=== PATIENT | female | born 1930 | race Hispanic/Latino ===

== ENCOUNTER 2018-01-11 12:50 | Emergency (ER) | payer MEDICARE, BC ==
[2018-01-11 12:54] VITALS: BMI 26.6
[2018-01-11 13:13] VITALS: RESP 18; O2SAT 98
--- NOTE | 2018-01-11 13:13 | ED PDOC ---
Arrival/HPI - General Time Seen by Provider: 01/11/18 12:54 Historian: Patient - History of Present Illness Narrative History of Present Illness (Text): 01/11/18 13:15 A 87 year old female, whose past medical history includes hypertension, anemia, arthritis, and cardiac catheterization, chronic beg pain, who is accompanied by her son, presents to the emergency department complaining of lower back pain. Per son, 2 days before Scott, patient tripped on rug and hit her back. Morning of , patient decides she wants to be evaluated for her lower back. Patient was taken to [facility] and had X-Rays, and CTs (including a Head CT due to having also hit head after tripping over rug) and all imagings were negative. However, it was noted that there was something seen on her lower back, and it was stated it may be something that was already there, such as an old fracture of some sort. Patient was sent home with Lidocaine patches, however has had no relief of pain, and instead it has become increasingly worse. Today, son went to go visit patient at her home, and found that patient's pain was much worse today, and became concerned. Patient decided to come to the ER to be evaluated. States took Aleev and Tylenol yesterday and had some relief of the pain. Did not take any pain medication today. Patient denies any chest pain, bowel issues, or any other complaints at this time. Also, patient mentions her PMD knows she is in the ER, as she has an appointment with Dr. Perez tomorrow and he called to confirm her appointment, and that is when she informed the PMD she will be in the ER to be evaluated for the worsening lower back pain. PMD: Dr. Perez 01/11/18 15:41 Past Medical History - Provider Review Nursing Documentation Reviewed: Yes - Tetanus Immunization Tetanus Immunization: Unknown - Cardiac Hx Hypertension: Yes - Pulmonary Hx Respiratory Disorders: No - Neurological Hx Neurological Disorder: No - HEENT Hx HEENT Disorder: No - Renal Hx Renal Disorder: No - Endocrine/Metabolic Hx Endocrine Disorders: No - Hematological/Oncological Hx Anemia: Yes - Integumentary Hx Dermatological Disorder: No - Musculoskeletal/Rheumatological Hx Arthritis: Yes - Gastrointestinal Hx Gastrointestinal Disorders: No - Genitourinary/Gynecological Hx Genitourinary Disorders: No - Psychiatric Hx Depression: Yes Hx Emotional Abuse: No Hx Physical Abuse: No Hx Substance Use: No - Surgical History Hx Cardiac Catheterization: Yes (2014) - Suicidal Assessment Feels Threatened In Home Enviroment: No Family/Social History - Physician Review Nursing Documentation Reviewed: Yes Family/Social History: No Known Family HX Smoking Status: Unknown If Ever Smoked Hx Alcohol Use: No Hx Substance Use: No Hx Substance Use Treatment: No Allergies/Home Meds Allergies/Adverse Reactions: Allergies codeine Allergy (Verified 01/11/18 13:15) ANAPHYLAXIS Home Medications: Home Meds Medication Instructions Recorded Confirmed Gemfibrozil 600 mg PO DAILY 11/17/12 08/07/14 Metoprolol Succinate 100 mg PO DAILY 11/17/12 08/07/14 Sertraline Hydrochloride 50 mg PO DAILY 11/17/12 08/07/14 Ascorbic Acid [Vitamin C] 500 mg PO DAILY 08/07/14 08/07/14 Aspirin [Ecotrin] 81 mg PO DAILY 08/07/14 08/07/14 Clopidogrel [Plavix] 75 mg PO DAILY 08/07/14 08/07/14 Esomeprazole Magnesium [Nexium] 40 mg PO DAILY 08/07/14 08/07/14 Ezetimibe [Zetia] 10 mg PO DAILY 08/07/14 08/07/14 Vitamin D3 -2000 1 tab PO DAILY 08/07/14 08/07/14 Review of Systems - Physician Review All systems were reviewed & negative as marked: Yes - Review of Systems Constitutional: absent: Fatigue, Weight Change, Fevers Eyes: absent: Vision Changes, Photophobia ENT: absent: Hearing Changes, Tinnitus Respiratory: absent: SOB, Cough Cardiovascular: absent: Chest Pain, Palpitations Gastrointestinal: absent: Abdominal Pain, Stool Changes, Vomiting, Appetite Changes Genitourinary Female: absent: Dysuria, Frequency, Hematuria, Urine Output Changes Musculoskeletal: Back Pain. absent: Arthralgias, Neck Pain Skin: absent: Rash, Pruritis Neurological: absent: Headache, Dizziness, Focal Weakness Endocrine: absent: Diaphoresis, Polyuria Physical Exam Vital Signs Reviewed: Yes Temperature: Afebrile Blood Pressure: Normal Pulse: Regular Respiratory Rate: Normal Appearance: Positive for: Well-Appearing, Non-Toxic, Comfortable Pain Distress: None Mental Status: Positive for: Alert and Oriented X 3 - Systems Exam Head: Present: Atraumatic, Normocephalic Pupils: Present: PERRL Extroacular Muscles: Present: EOMI Conjunctiva: Present: Normal Ears: Present: Normal Mouth: Present: Moist Mucous Membranes Pharnyx: Present: Normal Nose (Internal): Present: Normal Inspection Neck: Present: Normal Range of Motion Respiratory/Chest: Present: Clear to Auscultation, Good Air Exchange. No: Respiratory Distress, Accessory Muscle Use Cardiovascular: Present: Regular Rate and Rhythm, Normal S1, S2. No: Murmurs Abdomen: No: Tenderness, Distention, Peritoneal Signs Back: Present: Normal Inspection, Paraspinal Tenderness, Pain with Leg Raise (Right, +SLR). No: CVA Tenderness, Midline Tenderness, Decubitus Ulcer Upper Extremity: Present: Normal Inspection, Normal ROM, NORMAL PULSES, Neurovascularly Intact, Capillary Refill < 2s. No: Cyanosis, Edema Lower Extremity: Present: Normal Inspection, NORMAL PULSES, Normal ROM, Neurovascularly Intact, Capillary Refill < 2 s. No: Edema Neurological: Present: GCS=15, CN II-XII Intact, Speech Normal, Motor Func Grossly Intact, Normal Sensory Function, Normal Cerebellar Funct, Gait Normal Skin: Present: Warm, Dry, Normal Color. No: Rashes Psychiatric: Present: Alert, Oriented x 3, Normal Insight, Normal Concentration Medical Decision Making ED Course and Treatment: 01/11/18 13:20 Impression: 87 year old female with worsening lower back pain. She denies any enuresis or encoparesis. No saddle anesthesia. Still ambulating well after pain meds. She notes she did not take any pain meds today. No vertebral tenderness. No hx of IVDU. She notes DM but has been well controlled per pt. No paralysis or weakness. +R straight leg raise test. Pt notes she has not had PT recently and that likely that would help. Plan: -- Abd/Pelvis CT -- Lumbar Spinal CT -- Urinalysis -- Tylenol -- Lidoderm -- Reassess and disposition Progress Notes: 01/11/18 15:19 Pt notes back pain improved, ambulating well w/ out cauda equina signs CT largely unchanged from previous MRI States she does not have dysuria. Pain likely chronic, and not related to UTI given no dysuria, urgency or frequency. Pt notes she has pain meds at home, will d/c home with return indications and followup. - Scribe Statement The provider has reviewed the documentation as recorded by the Blake Marie Provider Scribe Attestation: All medical record entries made by the Scribe were at my direction and personally dictated by me. I have reviewed the chart and agree that the record accurately reflects my personal performance of the history, physical exam, medical decision making, and the department course for this patient. I have also personally directed, reviewed, and agree with the discharge instructions and disposition. Disposition/Present on Arrival - Present on Arrival Any Indicators Present on Arrival: No History of DVT/PE: No History of Uncontrolled Diabetes: No Urinary Catheter: No History Surgical Site Infection Following: None - Disposition Have Diagnosis and Disposition been Completed?: Yes Diagnosis: Chronic back pain Disposition: HOME/ ROUTINE Disposition Time: 15:20 Condition: GOOD Discharge Instructions (ExitCare): Low Back Pain in Adults, Spinal Stenosis, Low Back Pain (DC) Additional Instructions: QUAN PICHARDO, thank you for letting us take care of you today. Your provider was Giorgi Blankenship and you were treated for BACK PAIN. The emergency medical care you received today was directed at your acute symptoms. If you were prescribed any medication, please fill it and take as directed. It may take several days for your symptoms to resolve. Return to the Emergency Department if your symptoms worsen, do not improve, or if you have any other problems. Please contact your doctor or call one of the physicians/clinics you have been referred to that are listed on the Patient Visit Information form that is included in your discharge packet. Bring any paperwork you were given at discharge with you along with any medications you are taking to your follow up visit. Our treatment cannot replace ongoing medical care by a primary care prov ider outside of the emergency department. Thank you for allowing the [facility] team to be part of your care today. If you had an X-Ray or CT scan: A Radiologist will review the ED reading if any change in treatment is needed we will contact you. If you had a blood, urine, or wound culture: It will take several days for the results, if any change in treatment is needed we will contact you. If you had an STI test: It will take 48 hours for the results. Please call after 1 week if you have not heard back. Referrals: [facility] at [facility] [Outside] - Follow up with primary [facility] [Outside] - Follow up with primary Rc Perez MD [Staff Provider] - Follow up with primary
[2018-01-11] MEDS ORDERED: Lidocaine 5% Patch TD ONE (13:18)
--- NOTE | 2018-01-11 14:50 | CT ---
Date of service: 01/11/2018 PROCEDURE: CT Abdomen and Pelvis without intravenous contrast HISTORY: lumbar pain COMPARISON: None. TECHNIQUE: Without contrast.. Contrast dose: Radiation dose: Total exam DLP = 354.0 mGy-cm. This CT exam was performed using one or more of the following dose reduction techniques: Automated exposure control, adjustment of the mA and/or kV according to patient size, and/or use of iterative reconstruction technique. FINDINGS: LOWER THORAX: Unremarkable. LIVER: Unremarkable. No gross lesion or ductal dilatation. GALLBLADDER AND BILE DUCTS: Gallbladder removed PANCREAS: Unremarkable. No gross lesion or ductal dilatation. SPLEEN: Unremarkable. ADRENALS: Unremarkable. No mass. KIDNEYS AND URETERS: Multiple large renal cysts are seen bilaterally. There is a nonobstructing stone in the periphery of the left kidney. There is no evidence of hydronephrosis VASCULATURE: Unremarkable. No aortic aneurysm. No aortic atherosclerotic calcification or mural plaque present. BOWEL: Unremarkable. No obstruction. No gross mural thickening. APPENDIX: Unremarkable. Normal appendix. PERITONEUM: Unremarkable. No free fluid. No free air. LYMPH NODES: Unremarkable. No enlarged lymph nodes. BLADDER: Unremarkable. REPRODUCTIVE: Unremarkable. BONES: Compression fractures are seen at L2 and T12. These are probably chronic OTHER FINDINGS: None. IMPRESSION: No acute intra-abdominal findings
--- NOTE | 2018-01-11 14:55 | CT ---
Date of service: 01/11/2018 PROCEDURE: CT Lumbar Spine without contrast HISTORY: lumbar pain COMPARISON: None available. TECHNIQUE: Axial computed tomography images were obtained of the lumbar spine without the use of intravenous contrast. Coronal and sagittal reformatted images were created and reviewed. Radiation dose: Total exam DLP = 459.41 mGy-cm. This CT exam was performed using one or more of the following dose reduction techniques: Automated exposure control, adjustment of the mA and/or kV according to patient size, and/or use of iterative reconstruction technique. FINDINGS: VERTEBRAE: There is a moderate to severe compression fracture of L2 and T12. These appear to be chronic. DISCS/SPINAL CANAL/NEURAL FORAMINA: L1-2: There is mild retropulsion of bone with narrowing of the spinal canal right greater than left. L2-3: Moderate disc bulge L3-4: There is severe stenosis secondary to a large disc bulge and facet and ligamentum flavum hypertrophy. L4-5: Severe stenosis with obliteration of the subarachnoid space. There is a large disc bulge and severe facet arthropathy L5-S1: Facet arthropathy right greater than left PARASPINAL SOFT TISSUES: Unremarkable. OTHER FINDINGS: None. IMPRESSION: L3-4: There is severe stenosis secondary to a large disc bulge and facet and ligamentum flavum hypertrophy. L4-5: Severe stenosis. There is a large disc bulge and severe facet arthropathy L5-S1: Facet arthropathy right greater than left Compression fractures of T12 and L2, probably chronic
[2018-01-11 15:40] VITALS: BP 148/78; PULSE 83; TEMP 98.1
== END 2018-01-11 15:58 | disposition home or self-care (01) ==
LOC: ED 12:50
DX: M54.5 Low back pain (principal); G89.29 Other chronic pain; I10 Essential (primary) hypertension

== ENCOUNTER 2018-01-16 18:42 | Inpatient (IN) | payer MEDICARE, BC ==
[2018-01-16] MEDS ORDERED: Sodium Chloride 0.9% 1,000 ML IV SCH ×2 (18:45→20:07)
--- NOTE | 2018-01-16 18:48 | ED PDOC ---
Arrival/HPI - General Time Seen by Provider: 01/16/18 18:43 Historian: EMS - History of Present Illness Narrative History of Present Illness (Text): 01/16/18 18:40 87 year old female, whose past medical hx includes hypertension and hyperlipidemia, who presents to the emergency department from home for stroke- like symptoms. Patient has left-sided weakness, and left facial droop. Patient was last seen normal at 18:00 today. Daughter in-law is present at bedside. Code stroke called upon arrival here. PMD: Boaz Carrington Time/Duration: Prior to Arrival (pt last seen normal at 18:00) Symptom Onset: Sudden Symptom Course: Unchanged Context: Home Past Medical History - Provider Review Nursing Documentation Reviewed: Yes - Tetanus Immunization Tetanus Immunization: Unknown - Cardiac Hx Hypertension: Yes - Pulmonary Hx Respiratory Disorders: No - Neurological Hx Neurological Disorder: No - HEENT Hx HEENT Disorder: No - Renal Hx Renal Disorder: No - Endocrine/Metabolic Hx Endocrine Disorders: No - Hematological/Oncological Hx Anemia: Yes - Integumentary Hx Dermatological Disorder: No - Musculoskeletal/Rheumatological Hx Arthritis: Yes - Gastrointestinal Hx Gastrointestinal Disorders: No - Genitourinary/Gynecological Hx Genitourinary Disorders: No - Psychiatric Hx Depression: Yes Hx Emotional Abuse: No Hx Physical Abuse: No Hx Substance Use: No - Surgical History Hx Cardiac Catheterization: Yes (2014) - Suicidal Assessment Feels Threatened In Home Enviroment: No Family/Social History - Physician Review Nursing Documentation Reviewed: Yes Family/Social History: No Known Family HX Smoking Status: Unknown If Ever Smoked Hx Alcohol Use: No Hx Substance Use: No Hx Substance Use Treatment: No Allergies/Home Meds Allergies/Adverse Reactions: Allergies codeine Allergy (Verified 01/11/18 13:15) ANAPHYLAXIS Home Medications: Home Meds Medication Instructions Recorded Confirmed RX: Gemfibrozil 600 mg PO DAILY 11/17/12 08/07/14 RX: Metoprolol Succinate 100 mg PO DAILY 11/17/12 08/07/14 RX: Sertraline Hydrochloride 50 mg PO DAILY 11/17/12 08/07/14 RX: Ascorbic Acid [Vitamin C] 500 mg PO DAILY 08/07/14 08/07/14 RX: Aspirin [Ecotrin] 81 mg PO DAILY 08/07/14 08/07/14 RX: Clopidogrel [Plavix] 75 mg PO DAILY 08/07/14 08/07/14 RX: Esomeprazole Magnesium [Nexium] 40 mg PO DAILY 08/07/14 08/07/14 RX: Ezetimibe [Zetia] 10 mg PO DAILY 08/07/14 08/07/14 Vitamin D3 -2000 1 tab PO DAILY 08/07/14 08/07/14 Review of Systems - Physician Review All systems were reviewed & negative as marked: Yes - Review of Systems Neurological: Focal Weakness (left-sided focal weakness ), Facial Droop (pt has left-sided facial droop ). absent: Normal Physical Exam Vital Signs Reviewed: Yes Temperature: Afebrile Blood Pressure: Hypertensive Pulse: Regular Respiratory Rate: Normal Medical Decision Making ED Course and Treatment: 01/16/18 18:40 Impression: 87 year old female who presents to the emergency department from home for stroke-like symptoms. Differential Diagnosis included but are not limited to: high suspcition for r mca stroke Plan: -- Labs -- CTA Head/Neck code stroke -- CT of head w/o -- EKG -- CMP -- Hemoglobin A1C -- Lipid Panel -- Troponin I -- CBC (with differential) -- PTT -- Prothrombin Time -- X-Ray of chest -- Activase 65mg Inj IV once -- Activase 7mg Inj IV once -- IV fluids -- Trandate 10mg IV -- Dust Collector Operator Once -- Glucose, Blood, POC ACHS -- Urinalysis -- Reassess and disposition Prior Visits: Notes and results from previous visits were reviewed. Patient was last seen in the emergency department on 01/11/18 for lower back pain. Pt was discharged home in good condition with diagnosis of chronic back pain and directed to follow up with PMD. Progress Notes: 01/16/18 20:40 pt upon arrival with clincal presentation of r mca stroke. code stroke called. head ct neg. b/p initialyy elevated labetalol given. discussed with dr sanchez. request tpa. upon reassessemtn after cta. nih rapidly improved nih 6. case rediscussed wtih dr sanchez. tpa held 2/ rapidly improving symptoms. dr logan updated. request hospitalist admission. accepted dr hayes icu. - RAD Interpretation Narrative RAD Interpretations (Text): Electronically signed on Jan 16, 2018 7:31:06 PM by: Toni Yuz, M.D. 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 VENTRICLES: There is generalized parenchymal atrophy noted as demonstrated by symmetrical dilatation of ventricles and sulci. ORBITS: The orbits are unremarkable. SINUSES AND MASTOIDS: The paranasal sinuses and mastoid air cells are clear. BONES: No fracture. SOFT TISSUES: Unremarkable. MISCELLANEOUS: No acute intracranial pathology. IMPRESSION: 1. There is generalized parenchymal atrophy noted as demonstrated by symmetrical dilatation of ventricles and sulci. 2. Chronic periventricular and subcortical microvascular disease is seen. 3. Focal encephalomalacia involving left occipital lobe, compatible with an old infarct. 4. No acute intracranial pathology. CTA Head/Neck reviewed by radiologist, shows: Negative results. Radiology Orders: 01/16/18 18:44 CTA HEAD/NECK CODE STROKE [CT] Stat HEAD W/O (CODE STROKE) [CT] Stat CHEST PORTABLE [RAD] Stat Business Management Professor: Radiologist - EKG Interpretation EKG Interpretation (Text): EKG: Ordered, reviewed, and independently interpreted the EKG. Rate : 84 BPM Rhythm : NSR Interpretation : Nonspecific st-t wave changes Interpreted by ED Physician: Yes Type: 12 lead EKG - Medication Orders Current Medication Orders: Sodium Chloride (Sodium Chloride 0.9%) 1,000 mls @ 100 mls/hr IV .Q10H RUPERTO NIHSS Scale (Nora) Time Performed: 18:47 - How Severe is the Stoke Baseline Level of Consciousness: 0=Alert LOC to Questions: 0=Both comments correct LOC to commands: 0=Obeys both correctly Best Gaze: 2=Forced deviation Visual: 0=No visual loss Facial: 3=Complete unilateral paralysis Motor Arm - Left: 4=No movement Motor Arm - Right: 0=No drift Motor Leg - Left: 3=No effort against gravity (falls immediately) Motor Leg - Right: 0=No drift Limb Ataxia: 0=Absent Sensory: 0=Normal Best Language: 0=No aphasia Dysarthia: 1=Mild to moderate slurring Extinction & Inattention (Neglect): 1=Partial neglect (mild evie-attention) Score: 14 Risk Level: Mod Stroke Risk rTPA Inclusion/Exclusion - Refusal of Treatment Patient Refused Treatment: No - Inclusion Criteria for Altepase Patient is 18 years or Older: Yes The Clinical Diagnosis of Ischemic Stroke That is Causing a Potentially Disabling Neurological Deficit: No Time of Onset is Well Established to be Less Than 270 Minute Before Treatment Would Begin: Yes Risk/Benefit Discussed With Patient/Family Member Present: No - Exclusion Criteria for Altepase Uncontrolled Hypertension at Time of Treatment (Systolic BP above 185 or Diastolic BP above 110 mmHg): No - Scribe Statement The provider has reviewed the documentation as recorded by the Scribe Justine Carey All medical record entries made by the Scribanthony were at my direction and personally dictated by me. I have reviewed the chart and agree that the record accurately reflects my personal performance of the history, physical exam, medical decision making, and the department course for this patient. I have also personally directed, reviewed, and agree with the discharge instructions and disposition. Disposition/Present on Arrival - Present on Arrival Any Indicators Present on Arrival: No History of DVT/PE: No History of Uncontrolled Diabetes: No Urinary Catheter: No History Surgical Site Infection Following: None - Disposition Have Diagnosis and Disposition been Completed?: Yes Diagnosis: Stroke Disposition: HOSPITALIZED Disposition Time: 07:20 Condition: STABLE
[2018-01-16 19:19] LABS: CALCIUM 10.2 mg/dL (8.4-10.5)
[2018-01-16] MEDS ORDERED: Labetalol 5 mg/ml Inj 20ML IV STA (19:19)
[2018-01-16 19:20] LABS: ALBUMIN 4.2 g/dL (3.0-4.8)
[2018-01-16 19:21] LABS: ALB/GLOB RATIO 1.3 (1.1-1.8)
[2018-01-16] MEDS ORDERED: Labetalol 5mg/ml (4ml) ONE (19:22)
[2018-01-16 19:28] LABS: TROPONIN I 0.05 ng/mL
--- NOTE | 2018-01-16 19:31 | CP.PCM.CON ---
Past Patient History - Tetanus Immunizations Tetanus Immunization: Unknown - Past Social History Smoking Status: Unknown If Ever Smoked - CARDIAC Hx Hypertension: Yes - PULMONARY Hx Respiratory Disorders: No - NEUROLOGICAL Hx Neurological Disorder: No - HEENT Hx HEENT Problems: No - RENAL Hx Chronic Kidney Disease: No - ENDOCRINE/METABOLIC Hx Endocrine Disorders: No - HEMATOLOGICAL/ONCOLOGICAL Hx Anemia: Yes - INTEGUMENTARY Hx Dermatological Problems: No - MUSCULOSKELETAL/RHEUMATOLOGICAL Hx Arthritis: Yes - GASTROINTESTINAL Hx Gastrointestinal Disorders: No - GENITOURINARY/GYNECOLOGICAL Hx Genitourinary Disorders: No - PSYCHIATRIC Hx Depression: Yes Hx Substance Use: No - SURGICAL HISTORY Hx Cardiac Catheterization: Yes (2014) - ANESTHESIA Hx Anesthesia: Yes Hx Anesthesia Reactions: No Hx Malignant Hyperthermia: No Meds Allergies/Adverse Reactions: Allergies Allergy/AdvReac Type Severity Reaction Status Date / Time codeine Allergy ANAPHYLAXIS Verified 01/11/18 13:15 - Medications Medications: Current Medications Sodium Chloride (Sodium Chloride 0.9%) 1,000 mls @ 100 mls/hr IV .Q10H RUPERTO Results - Vital Signs Recent Vital Signs: Last Vital Signs Temp 98.8 F 01/16/18 19:15 Pulse 85 01/16/18 19:15 Resp 19 01/16/18 19:15 BP 195/87 H 01/16/18 19:15 Pulse Ox 99 01/16/18 19:15 - Labs Result Diagrams: 01/16/18 18:50 Labs: Laboratory Results - last 24 hr 01/16/18 01/16/18 18:50 19:00 Sodium 139 Potassium 3.8 Chloride 108 H Carbon Dioxide 23 Anion Gap 12 BUN 24 H Creatinine 1.2 Est GFR ( Amer) 51 Est GFR (Non-Af Amer) 42 Random Glucose 148 H Calcium 10.2 Total Bilirubin 0.3 AST 34 ALT 26 Alkaline Phosphatase 156 H Troponin I 0.05 D Total Protein 7.6 Albumin 4.2 Globulin 3.3 Albumin/Globulin Ratio 1.3 Triglycerides 268 H Cholesterol 194 LDL Cholesterol Direct 54 HDL Cholesterol 39 BBK History Checked No verified bt
[2018-01-16 19:43] LABS: HEMOGLOBIN 10.6 g/dL (12.0-16.0); RBC 3.66 10^6/uL (3.5-6.1); WHITE BLOOD COUNT 7.6 10^3/uL (4.5-11.0)
[2018-01-16 19:44] LABS: BASO % 0.4 % (0.0-3.0); EOS % 3.3 % (1.5-5.0); GRAN % 61.7 % (50.0-68.0); LYMPH % 27.2 % (22.0-35.0); MEAN CELL VOLUME 91.3 fl (80.0-105.0); MEAN CORPUSCULAR HGB CONC 31.7 g/dl (31.0-37.0); MEAN PLATELET VOLUME 9.1 fl (7.0-11.0); MONO % 7.4 % (1.0-6.0); RED CELL DISTRIBUTION WIDTH 14.3 % (11.5-14.5)
[2018-01-16 19:45] LABS: BASO # 0.03 K/mm3 (0.0-2.0); EOS # 0.3 (0.0-0.7); GRAN # 4.7 (1.4-6.5); LYMPH # 2.1 (1.2-3.4); MONO # 0.6 (0.1-0.6)
[2018-01-16 19:48] LABS: INR 1.07; PARTIAL THROMBOPLASTIN TIME 27.4 Seconds (25.1-36.5); PROTHROMBIN TIME 12.2 SECONDS (9.4-12.5)
--- NOTE | 2018-01-16 20:33 | CP.PCM.HP ---
<Mohinder Guthrie - Last Filed: 01/16/18 22:17> History of Present Illness - History of Present Illness History of Present Illness: Mohinder Guthrie Internal Medicine Resident- H&P on Behalf of the Hospitalist Team Subjective CC: AMS, facial droop, slurred speech HPI: Patient is a 87 year old female with a past medical history of hypertension, hyperlipidemia, chronic lower extremity pain, anxiety who presents to the emergency department for evaluation and treatment of altered mental status, facial droop, and slurred speech. As per daughter in law, who is at bedside, the patient was last heard to be normal at approximately 1800 and found by the granddaughter to be altered at 1810. Ambulance was called at ~1823. Patient states that she recalls the aforementioned events. Admits to experiencing generalized fatigue. Offers no other complaints. Denies fever, chills, chest pain, headache, dizziness, vision/auditory changes from baseline, confusion, SOB, abdominal pain, nausea, vomiting, diarrhea, constipation, and urinary symptoms. 12 point ROS negative except as indicated in the HPI Past medical history: hypertension, hyperlipidemia, chronic lower extremity parmjit n, anxiety Past surgical history: bilateral knee replacements-cannot recall years completed, cholecystecomy- unsure of year completed Allergies: NKDA Social History: denies ETOH use, denies tobacco use, denies illicit drug use Medications: patient is unsure of specific names and dosages: metoprolol, gemfibrozil, seroquel, vitamin B12 Pharmacy: [facility] Primary Care Physician: Daughter in law is unsure, believes it is " Trae" Physical Examination - Constitutional Appears: Non-toxic, No Acute Distress - Eye Exam Eye Exam: EOMI, TOMAS - ENT Exam ENT Exam: Mucous Membranes Moist - Neck Exam Neck Exam: Full ROM - Respiratory Exam Respiratory Exam: Clear to Auscultation Bilateral, NORMAL BREATHING PATTERN - Cardiovascular Exam Cardiovascular Exam: REGULAR RHYTHM, RRR, +S1, +S2 - GI/Abdominal Exam GI & Abdominal Exam: Soft, Normal Bowel Sounds. absent: Tenderness - Extremities Exam Extremities Exam: no clubbing, no cyanosis, no edema - Neurological Exam Neurological Exam: Alert, Awake, Oriented x3, responds to verbal stimuli, answers questions appropriately, follows commands, moves extremities past midline. left sided facial droop noted, speech is slurred, CN II- intact bilaterally, CN VII intact on right, CN VIII-XII intact bilaterally. Muscle strength 5/5 right upper and lower extremities, Muscle strength 3/5 left upper and lower extremities (muscle can move the joint it crosses through a full range of motion against gravity but without any resistance), sensation is intact to touch throughout, dysmetria noted when using left upper extremity, tongue deviation to the left noted when asked to protrude, unable to assess gait at this time due to fatigue, left sided neglect noted, NIH stroke scale 6 - Psychiatric Exam Psychiatric exam: Normal Affect, Normal Mood - Skin Skin Exam: Dry, Intact, Normal Color, Warm Assessment and Plan: Patient is a 87 year old female with a past medical history of hypertension, hyperlipidemia, chronic lower extremity pain, anxiety who was admitted for evaluation and treatment of altered mental status, facial droop, and slurred speech. Code stroke was called. Original NIHSS was 14. Repeat NIHSS was 6. Though tPA was ordered it was NOT administered. Case was discussed with neurohospitalist by ED physician. Patient was started on IVF NS @ 125cc/hr and given a labetolol 10mg PO once and aspirin 300mg PO once. AMS - Ddx ischemic stroke vs tia vs. metabolic/toxic encephalopathy - 01/16/2018 CT Head without Contrast- 1. There is generalized parenchymal atrophy noted as demonstrated by symmetrical dilatation of ventricles and sulci. 2. Chronic periventricular and subcortical microvascular disease is seen. 3. Focal encephalomalacia involving left occipital lobe, compatible with an old infarct. 4. No acute intracranial pathology. - 01/16/2018 CTA Head and Neck- mild atherosclerotic changes noted at the left and right common carotid bifurcations wihtout hemodynamicccaly signifciant stneosis. 4 mm nodules noted in the BELLO, Several right left thryoid lobe nodules noted - neurology consulted- appreciate recommendations - allow for permissive hypertension, potential ischemic stroke without tPA administration, tx BP if > 220mmHg/120mmHg for first 24-36hrs from onset - continue IVS NS @ 125cc/hr - neuro checks q1h - vitals q1h Lung Nodule - 4 mm nodule noted in the BELLO noted on CTA Head and Neck - f/u study recommended in 6 months in outpatient setting Thyroid Nodules - TSH with reflex ordered and pending - follow up with outpatient thyroid ultrasound Indeterminant Troponins - EKG NSR [address]-t wave changes - no chest pain, trend troponins x 2 q6h - hx of cad with stent- please see below Hx of CAD - stent placed- 2014 - aspirin 300mg PO x 1 given in ED - hold home aspirin and plavix- restart if neuro approves Hx of HTN - hold home metoprolol - allow for permissive htn, potential ischemic stroke without tPA administration, tx BP if > 220mmHg/120mmHg for first 24-36hrs from onset Hx of HPL - lipid profile ordered and pending - continue home gemfibrozil - continue home zetia Hx of Anemia - Hgb ~ 10.6 at baseline - normocytic - iron, tibc, ferritin, b12, folate ordered and pending Hx of Anxiety - hold home seroquel to avoid medication induced AMS Prophylaxis - DVT- scds - GI- famotidine Patient case discussed with and plan approved by attending physician, Dr. Mera. Present on Admission - Present on Admission Any Indicators Present on Admission: No Past Patient History - Tetanus Immunizations Tetanus Immunization: Unknown - Past Social History Smoking Status: Unknown If Ever Smoked - CARDIAC Hx Hypertension: Yes - PULMONARY Hx Respiratory Disorders: No - NEUROLOGICAL Hx Neurological Disorder: No - HEENT Hx HEENT Problems: No - RENAL Hx Chronic Kidney Disease: No - ENDOCRINE/METABOLIC Hx Endocrine Disorders: No - HEMATOLOGICAL/ONCOLOGICAL Hx Anemia: Yes - INTEGUMENTARY Hx Dermatological Problems: No - MUSCULOSKELETAL/RHEUMATOLOGICAL Hx Arthritis: Yes - GASTROINTESTINAL Hx Gastrointestinal Disorders: No - GENITOURINARY/GYNECOLOGICAL Hx Genitourinary Disorders: No - PSYCHIATRIC Hx Depression: Yes Hx Emotional Abuse: No Hx Physical Abuse: No Hx Substance Use: No - SURGICAL HISTORY Hx Cardiac Catheterization: Yes (2014) - ANESTHESIA Hx Anesthesia: Yes Hx Anesthesia Reactions: No Hx Malignant Hyperthermia: No Meds Allergies/Adverse Reactions: Allergies Allergy/AdvReac Type Severity Reaction Status Date / Time codeine Allergy ANAPHYLAXIS Verified 01/11/18 13:15 Results - Vital Signs Recent Vital Signs: Last Vital Signs Temp 98.8 F 01/16/18 19:15 Pulse 81 01/16/18 19:55 Resp 21 01/16/18 19:55 BP 175/67 H 01/16/18 19:55 Pulse Ox 94 L 01/16/18 19:55 - Labs Result Diagrams: 01/16/18 18:50 01/16/18 18:50 Labs: Laboratory Results - last 24 hr 01/16/18 01/16/18 01/16/18 18:45 18:50 18:50 WBC 7.6 RBC 3.66 Hgb 10.6 L Hct 33.4 L MCV 91.3 MCH 29.0 MCHC 31.7 RDW 14.3 Plt Count 337 MPV 9.1 Gran % 61.7 Lymph % (Auto) 27.2 [place] % (Auto) 7.4 H Eos % (Auto) 3.3 Baso % (Auto) 0.4 Gran # 4.70 Lymph # (Auto) 2.1 [place] # (Auto) 0.6 Eos # (Auto) 0.3 Baso # (Auto) 0.03 PT 12.2 INR 1.07 APTT 27.4 Sodium Potassium Chloride Carbon Dioxide Anion Gap BUN Creatinine Est GFR ( Amer) Est GFR (Non-Af Amer) Random Glucose Calcium Total Bilirubin AST ALT Alkaline Phosphatase Troponin I Total Protein Albumin Globulin Albumin/Globulin Ratio Triglycerides Cholesterol LDL Cholesterol Direct HDL Cholesterol Blood Type Blood Type Confirm O POSITIVE Antibody Screen BBK History Checked 01/16/18 01/16/18 18:50 19:00 WBC RBC Hgb Hct MCV MCH MCHC RDW Plt Count MPV Gran % Lymph % (Auto) [place] % (Auto) Eos % (Auto) Baso % (Auto) Gran # Lymph # (Auto) [place] # (Auto) Eos # (Auto) Baso # (Auto) PT INR APTT Sodium 139 Potassium 3.8 Chloride 108 H Carbon Dioxide 23 Anion Gap 12 BUN 24 H Creatinine 1.2 Est GFR ( Amer) 51 Est GFR (Non-Af Amer) 42 Random Glucose 148 H Calcium 10.2 Total Bilirubin 0.3 AST 34 ALT 26 Alkaline Phosphatase 156 H Troponin I 0.05 D Total Protein 7.6 Albumin 4.2 Globulin 3.3 Albumin/Globulin Ratio 1.3 Triglycerides 268 H Cholesterol 194 LDL Cholesterol Direct 54 HDL Cholesterol 39 Blood Type O POSITIVE Blood Type Confirm Antibody Screen Negative BBK History Checked No verified bt <Rodrigue Mera - Last Filed: 01/20/18 02:07> Results - Vital Signs Recent Vital Signs: Last Vital Signs Temp 98 F 01/19/18 22:01 Pulse 68 01/19/18 22:01 Resp 18 01/19/18 22:01 BP 134/69 01/19/18 22:01 Pulse Ox 96 01/19/18 22:01 - Labs Result Diagrams: 01/19/18 06:20 01/19/18 06:20 Labs: Laboratory Results - last 24 hr 01/19/18 01/19/18 06:20 06:20 WBC 8.8 RBC 3.30 L Hgb 9.7 L Hct 29.7 L MCV 90.0 MCH 29.4 MCHC 32.7 RDW 14.5 Plt Count 258 MPV 9.2 Gran % 70.2 H Lymph % (Auto) 17.0 L [place] % (Auto) 9.5 H Eos % (Auto) 3.1 Baso % (Auto) 0.2 Gran # 6.15 Lymph # (Auto) 1.5 [place] # (Auto) 0.8 H Eos # (Auto) 0.3 Baso # (Auto) 0.02 Sodium 138 Potassium 3.7 Chloride 109 H Carbon Dioxide 24 Anion Gap 9 L BUN 20 Creatinine 1.2 Est GFR ( Amer) 51 Est GFR (Non-Af Amer) 42 Random Glucose 116 H Calcium 9.7 Total Bilirubin 0.6 AST 33 ALT 28 Alkaline Phosphatase 128 H Total Protein 6.4 Albumin 3.4 Globulin 3.1 Albumin/Globulin Ratio 1.1 Attending/Attestation - Attestation I have personally seen and examined this patient.: Yes I have fully participated in the care of the patient.: Yes I have reviewed all pertinent clinical information: Yes
[2018-01-16 22:59] LABS: URINE BILIRUBIN NEGATIVE (NEGATIVE); URINE BLOOD TRACE-INTACT (NEGATIVE); URINE GLUCOSE (UA) NEGATIVE (NEGATIVE); URINE LEUKOCYTE ESTERASE NEGATIVE Leu/uL (NEGATIVE); URINE PROTEIN NEGATIVE mg/dL (<30 mg/dL); URINE UROBILINOGEN 0.2 E.U./dL (<1 E.U./dL)
[2018-01-16 23:02] LABS: URINE APPEARANCE CLEAR (CLEAR); URINE COLOR YELLOW (YELLOW)
[2018-01-17 00:02] LABS: URINE EPITHELIAL CELLS 0 - 2 /hpf (0-5); URINE RBC 0 - 2 /hpf (0-2)
[2018-01-17 00:03] LABS: URINE BACTERIA SMALL (NEG); URINE WBC 0 - 2 /hpf (0-6)
[2018-01-17 00:11] LABS: IRON 80 ug/dL (45-180)
[2018-01-17 00:20] LABS: % IRON SATURATION 22 % (20-55); TOTAL IRON BINDING CAPACITY 365 ug/dL (265-497)
[2018-01-17 05:24] VITALS: BMI 26.7
[2018-01-17 06:24] LABS: BASO # 0.03 K/mm3 (0.0-2.0); BASO % 0.4 % (0.0-3.0); EOS # 0.3 (0.0-0.7); EOS % 3.2 % (1.5-5.0); GRAN # 5.64 (1.4-6.5); GRAN % 65.9 % (50.0-68.0); HEMOGLOBIN 9.7 g/dL (12.0-16.0); LYMPH # 2.1 (1.2-3.4); LYMPH % 24.1 % (22.0-35.0); MEAN CELL VOLUME 90.6 fl (80.0-105.0); MEAN CORPUSCULAR HEMOGLOBIN 29.5 pg (25.0-35.0); MEAN CORPUSCULAR HGB CONC 32.6 g/dl (31.0-37.0); MONO # 0.6 (0.1-0.6); MONO % 6.4 % (1.0-6.0); RBC 3.29 10^6/uL (3.5-6.1); RED CELL DISTRIBUTION WIDTH 14.4 % (11.5-14.5); WHITE BLOOD COUNT 8.6 10^3/uL (4.5-11.0)
[2018-01-17 06:46] LABS: TROPONIN I 0.05 ng/mL
[2018-01-17 07:23] LABS: ALB/GLOB RATIO 1.2 (1.1-1.8); ALBUMIN 3.5 g/dL (3.0-4.8); CALCIUM 9.6 mg/dL (8.4-10.5)
--- NOTE | 2018-01-17 09:10 | CARD ---
APPROVED REPORT Date of service: 01/16/2018 EKG Measurement Heart [id number] <Conclusion> Normal sinus rhythm Left axis deviation Minimal voltage criteria for LVH, may be normal variant Nonspecific ST and T wave abnormality Abnormal ECG
--- NOTE | 2018-01-17 09:46 | CP.CCUPN ---
<Rohit Wilson - Last Filed: 01/17/18 13:29> CCU Subjective - Physician Review Subjective (Free Text): Rohit Wilson, PGY1 ICU Progress Note for Dr. Lal Patient was seen and examined at bedside this morning. She is AAOx3. Endorses mild shaking/tremors of the legs and some generalized weakness. Patient has mild slurring of speech during interview. She denies cp, sob, abdominal pain, blurry vision, lightheadedness, dizziness. BP during time of interview was 190/95. A full 12 point ROS was conducted and unremarkable except as stated above. CCU Objective - Vital Signs / Intake & Output Vital Signs (Last 4 hours): Vital Signs Pulse 01/17/18 06:00 62 Intake and Output (Last 8hrs): Intake & Output 01/16/18 01/17/18 01/17/18 22:59 06:59 14:59 Intake Total 875 Output Total 600 Balance 275 Weight 80 kg 79.379 kg Intake: IV 875 Right Hand 875 Oral 0 Output: Urine 600 Urethral (Marcos) 600 - Physical Exam Head: Positive for: Atraumatic, Normocephalic Pupils: Positive for: Non-Reactive. Negative for: PERRL Extroacular Muscles: Positive for: EOMI Mouth: Positive for: Moist Mucous Membranes Pharnyx: Positive for: Normal Neck: Positive for: Normal Range of Motion. Negative for: Meningeal Signs Respiratory/Chest: Positive for: Clear to Auscultation. Negative for: Respiratory Distress, Accessory Muscle Use, Wheezes, Rales, Rhonchi Cardiovascular: Positive for: Regular Rate and Rhythm, Normal S1, S2 Abdomen: Positive for: Normal Bowel Sounds. Negative for: Tenderness, Di stention, Peritoneal Signs Upper Extremity: Positive for: Normal ROM, NORMAL PULSES, Other (3-4/5 motor strenth in Left Upper Ext. 5/5 in R-UE. ). Negative for: Normal Inspection, Cyanosis, Edema Lower Extremity: Positive for: Other (3-4/5 motor strength in the left lower ext. 5/5 in right lower ext. ). Negative for: Edema, CALF TENDERNESS, Cyanosis, Kait's Sign, Tenderness Neurological: Positive for: Other (General left sided muscle weakness. Sensation grossly intact. Facial droop on left side. ). Negative for: CN II-XII Intact, Speech Normal (Mild slurring of speech. ) Skin: Positive for: Warm, Dry, Normal Color. Negative for: Rashes Psychiatric: Positive for: Alert, Oriented x 3 - Medications Active Medications: Active Medications Generic Name Dose Route Start Last Admin Trade Name Freq PRN Reason Stop Dose Admin Clopidogrel Bisulfate 75 mg 01/19/18 10:00 Plavix PO DAILY [facility] Ezetimibe 10 mg 01/17/18 10:00 Zetia PO DAILY [facility] Famotidine 20 mg 01/17/18 10:00 Pepcid IVP DAILY RUPERTO Gemfibrozil 600 mg 01/17/18 10:00 Lopid PO DAILY RUPERTO Hydralazine HCl 10 mg 01/17/18 09:36 Apresoline IVP Q6 PRN FOR SBP>160 Losartan Potassium 100 mg 01/17/18 10:00 Cozaar PO DAILY [facility] Metoprolol Tartrate 25 mg 01/17/18 10:00 Lopressor PO BID RUPERTO Non-Formulary Medication 500 mg 01/17/18 10:00 Ascorbic Acid [Vitamin C] PO DAILY RUPERTO Non-Formulary Medication 81 mg 01/17/18 10:00 Aspirin [Ecotrin] PO DAILY RUPERTO Non-Formulary Medication 40 mg 01/17/18 10:00 Esomeprazole Magnesium [Nexium] PO DAILY RUPERTO Non-Formulary Medication 50 mg 01/17/18 10:00 Sertraline Hydrochloride [Sertraline Hydrochloride] PO DAILY RUPERTO - Patient Studies Lab Studies: Lab Studies 01/17/18 01/17/18 01/17/18 Range/Units 05:40 05:40 01:03 WBC 8.6 (4.5-11.0) 10^3/uL RBC 3.29 L (3.5-6.1) 10^6/uL Hgb 9.7 L (12.0-16.0) g/dL Hct 29.8 L (36.0-48.0) % MCV 90.6 (80.0-105.0) fl MCH 29.5 (25.0-35.0) pg MCHC 32.6 (31.0-37.0) g/dl RDW 14.4 (11.5-14.5) % Plt Count 277 (120.0-450.0) 10^3/uL MPV 9.0 (7.0-11.0) fl Gran % 65.9 (50.0-68.0) % Lymph % (Auto) 24.1 (22.0-35.0) % [place] % (Auto) 6.4 H (1.0-6.0) % Eos % (Auto) 3.2 (1.5-5.0) % Baso % (Auto) 0.4 (0.0-3.0) % Gran # 5.64 (1.4-6.5) Lymph # (Auto) 2.1 (1.2-3.4) [place] # (Auto) 0.6 (0.1-0.6) Eos # (Auto) 0.3 (0.0-0.7) Baso # (Auto) 0.03 (0.0-2.0) K/mm3 PT (9.4-12.5) SECONDS INR APTT (25.1-36.5) Seconds Sodium 140 (132-148) mmol/L Potassium 3.9 (3.6-5.0) mmol/L Chloride 112 H (98-107) mmol/L Carbon Dioxide 22 (21-33) mmol/L Anion Gap 10 (10-20) BUN 19 (7-21) mg/dL Creatinine 1.1 (0.7-1.2) mg/dl Est GFR ( Amer) 57 Est GFR (Non-Af Amer) 47 Random Glucose 102 (70-110) mg/dL Calcium 9.6 (8.4-10.5) mg/dL Phosphorus 3.1 (2.5-4.5) mg/dL Magnesium 1.9 (1.7-2.2) mg/dL Iron (45-180) ug/dL TIBC (265-497) ug/dL % Saturation (20-55) % Total Bilirubin 0.2 (0.2-1.3) mg/dL AST 26 (14-36) U/L ALT 32 (7-56) U/L Alkaline Phosphatase 133 H (38-126) U/L Troponin I 0.05 0.05 ng/mL Total Protein 6.5 (5.8-8.3) g/dL Albumin 3.5 (3.0-4.8) g/dL Globulin 3.0 gm/dL Albumin/Globulin Ratio 1.2 (1.1-1.8) Triglycerides (35-160) mg/dL Cholesterol (130-200) mg/dL LDL Cholesterol Direct (0-129) mg/dL HDL Cholesterol (29-60) mg/dL TSH 3rd Generation (0.46-4.68) mIU/mL Urine Color (YELLOW) Urine Appearance (CLEAR) Urine pH (4.7-8.0) Ur Specific [place] (1.005-1.035) Urine Protein (<30 mg/dL) mg/dL Urine Glucose (UA) (NEGATIVE) mg/dL Urine Ketones (NEGATIVE) mg/dL Urine Blood (NEGATIVE) Urine Nitrate (NEGATIVE) Urine Bilirubin (NEGATIVE) Urine Urobilinogen (<1 E.U./dL) E.U./dL Ur Leukocyte Esterase (NEGATIVE) Wili/uL Urine RBC (0-2) /hpf Urine WBC (0-6) /hpf Ur Epithelial Cells (0-5) /hpf Urine Bacteria (NEG) Blood Type Blood Type Confirm Antibody Screen BBK History Checked 01/16/18 01/16/18 01/16/18 Range/Units 23:11 22:50 19:00 WBC (4.5-11.0) 10^3/uL RBC (3.5-6.1) 10^6/uL Hgb (12.0-16.0) g/dL Hct (36.0-48.0) % MCV (80.0-105.0) fl MCH (25.0-35.0) pg MCHC (31.0-37.0) g/dl RDW (11.5-14.5) % Plt Count (120.0-450.0) 10^3/uL MPV (7.0-11.0) fl Gran % (50.0-68.0) % Lymph % (Auto) (22.0-35.0) % [place] % (Auto) (1.0-6.0) % Eos % (Auto) (1.5-5.0) % Baso % (Auto) (0.0-3.0) % Gran # (1.4-6.5) Lymph # (Auto) (1.2-3.4) [place] # (Auto) (0.1-0.6) Eos # (Auto) (0.0-0.7) Baso # (Auto) (0.0-2.0) K/mm3 PT (9.4-12.5) SECONDS INR APTT (25.1-36.5) Seconds Sodium (132-148) mmol/L Potassium (3.6-5.0) mmol/L Chloride (98-107) mmol/L Carbon Dioxide (21-33) mmol/L Anion Gap (10-20) BUN (7-21) mg/dL Creatinine (0.7-1.2) mg/dl Est GFR ( Amer) Est GFR (Non-Af Amer) Random Glucose (70-110) mg/dL Calcium (8.4-10.5) mg/dL Phosphorus (2.5-4.5) mg/dL Magnesium (1.7-2.2) mg/dL Iron 80 (45-180) ug/dL TIBC 365 (265-497) ug/dL % Saturation 22 (20-55) % Total Bilirubin (0.2-1.3) mg/dL AST (14-36) U/L ALT (7-56) U/L Alkaline Phosphatase (38-126) U/L Troponin I ng/mL Total Protein (5.8-8.3) g/dL Albumin (3.0-4.8) g/dL Globulin gm/dL Albumin/Globulin Ratio (1.1-1.8) Triglycerides (35-160) mg/dL Cholesterol (130-200) mg/dL LDL Cholesterol Direct (0-129) mg/dL HDL Cholesterol (29-60) mg/dL TSH 3rd Generation 0.90 (0.46-4.68) mIU/mL Urine Color Yellow (YELLOW) Urine Appearance Clear (CLEAR) Urine pH 6.0 (4.7-8.0) Ur Specific [place] 1.015 (1.005-1.035) Urine Protein Negative (<30 mg/dL) mg/dL Urine Glucose (UA) Negative (NEGATIVE) mg/dL Urine Ketones Negative (NEGATIVE) mg/dL Urine Blood Trace-intact H (NEGATIVE) Urine Nitrate Negative (NEGATIVE) Urine Bilirubin Negative (NEGATIVE) Urine Urobilinogen 0.2 (<1 E.U./dL) E.U./dL Ur Leukocyte Esterase Negative (NEGATIVE) Wili/uL Urine RBC 0 - 2 (0-2) /hpf Urine WBC 0 - 2 (0-6) /hpf Ur Epithelial Cells 0 - 2 (0-5) /hpf Urine Bacteria Small (NEG) Blood Type Blood Type Confirm Antibody Screen BBK History Checked 01/16/18 01/16/18 01/16/18 Range/Units 19:00 18:50 18:50 WBC (4.5-11.0) 10^3/uL RBC (3.5-6.1) 10^6/uL Hgb (12.0-16.0) g/dL Hct (36.0-48.0) % MCV (80.0-105.0) fl MCH (25.0-35.0) pg MCHC (31.0-37.0) g/dl RDW (11.5-14.5) % Plt Count (120.0-450.0) 10^3/uL MPV (7.0-11.0) fl Gran % (50.0-68.0) % Lymph % (Auto) (22.0-35.0) % [place] % (Auto) (1.0-6.0) % Eos % (Auto) (1.5-5.0) % Baso % (Auto) (0.0-3.0) % Gran # (1.4-6.5) Lymph # (Auto) (1.2-3.4) [place] # (Auto) (0.1-0.6) Eos # (Auto) (0.0-0.7) Baso # (Auto) (0.0-2.0) K/mm3 PT 12.2 (9.4-12.5) SECONDS INR 1.07 APTT 27.4 (25.1-36.5) Seconds Sodium 139 (132-148) mmol/L Potassium 3.8 (3.6-5.0) mmol/L Chloride 108 H (98-107) mmol/L Carbon Dioxide 23 (21-33) mmol/L Anion Gap 12 (10-20) BUN 24 H (7-21) mg/dL Creatinine 1.2 (0.7-1.2) mg/dl Est GFR ( Amer) 51 Est GFR (Non-Af Amer) 42 Random Glucose 148 H (70-110) mg/dL Calcium 10.2 (8.4-10.5) mg/dL Phosphorus (2.5-4.5) mg/dL Magnesium (1.7-2.2) mg/dL Iron (45-180) ug/dL TIBC (265-497) ug/dL % Saturation (20-55) % Total Bilirubin 0.3 (0.2-1.3) mg/dL AST 34 (14-36) U/L ALT 26 (7-56) U/L Alkaline Phosphatase 156 H (38-126) U/L Troponin I 0.05 D ng/mL Total Protein 7.6 (5.8-8.3) g/dL Albumin 4.2 (3.0-4.8) g/dL Globulin 3.3 gm/dL Albumin/Globulin Ratio 1.3 (1.1-1.8) Triglycerides 268 H (35-160) mg/dL Cholesterol 194 (130-200) mg/dL LDL Cholesterol Direct 54 (0-129) mg/dL HDL Cholesterol 39 (29-60) mg/dL TSH 3rd Generation (0.46-4.68) mIU/mL Urine Color (YELLOW) Urine Appearance (CLEAR) Urine pH (4.7-8.0) Ur Specific [place] (1.005-1.035) Urine Protein (<30 mg/dL) mg/dL Urine Glucose (UA) (NEGATIVE) mg/dL Urine Ketones (NEGATIVE) mg/dL Urine Blood (NEGATIVE) Urine Nitrate (NEGATIVE) Urine Bilirubin (NEGATIVE) Urine Urobilinogen (<1 E.U./dL) E.U./dL Ur Leukocyte Esterase (NEGATIVE) Wili/uL Urine RBC (0-2) /hpf Urine WBC (0-6) /hpf Ur Epithelial Cells (0-5) /hpf Urine Bacteria (NEG) Blood Type O POSITIVE Blood Type Confirm Antibody Screen Negative BBK History Checked No verified bt 01/16/18 01/16/18 Range/Units 18:50 18:45 WBC 7.6 (4.5-11.0) 10^3/uL RBC 3.66 (3.5-6.1) 10^6/uL Hgb 10.6 L (12.0-16.0) g/dL Hct 33.4 L (36.0-48.0) % MCV 91.3 (80.0-105.0) fl MCH 29.0 (25.0-35.0) pg MCHC 31.7 (31.0-37.0) g/dl RDW 14.3 (11.5-14.5) % Plt Count 337 (120.0-450.0) 10^3/uL MPV 9.1 (7.0-11.0) fl Gran % 61.7 (50.0-68.0) % Lymph % (Auto) 27.2 (22.0-35.0) % [place] % (Auto) 7.4 H (1.0-6.0) % Eos % (Auto) 3.3 (1.5-5.0) % Baso % (Auto) 0.4 (0.0-3.0) % Gran # 4.70 (1.4-6.5) Lymph # (Auto) 2.1 (1.2-3.4) [place] # (Auto) 0.6 (0.1-0.6) Eos # (Auto) 0.3 (0.0-0.7) Baso # (Auto) 0.03 (0.0-2.0) K/mm3 PT (9.4-12.5) SECONDS INR APTT (25.1-36.5) Seconds Sodium (132-148) mmol/L Potassium (3.6-5.0) mmol/L Chloride (98-107) mmol/L Carbon Dioxide (21-33) mmol/L Anion Gap (10-20) BUN (7-21) mg/dL Creatinine (0.7-1.2) mg/dl Est GFR ( Amer) Est GFR (Non-Af Amer) Random Glucose (70-110) mg/dL Calcium (8.4-10.5) mg/dL Phosphorus (2.5-4.5) mg/dL Magnesium (1.7-2.2) mg/dL Iron (45-180) ug/dL TIBC (265-497) ug/dL % Saturation (20-55) % Total Bilirubin (0.2-1.3) mg/dL AST (14-36) U/L ALT (7-56) U/L Alkaline Phosphatase (38-126) U/L Troponin I ng/mL Total Protein (5.8-8.3) g/dL Albumin (3.0-4.8) g/dL Globulin gm/dL Albumin/Globulin Ratio (1.1-1.8) Triglycerides (35-160) mg/dL Cholesterol (130-200) mg/dL LDL Cholesterol Direct (0-129) mg/dL HDL Cholesterol (29-60) mg/dL TSH 3rd Generation (0.46-4.68) mIU/mL Urine Color (YELLOW) Urine Appearance (CLEAR) Urine pH (4.7-8.0) Ur Specific [place] (1.005-1.035) Urine Protein (<30 mg/dL) mg/dL Urine Glucose (UA) (NEGATIVE) mg/dL Urine Ketones (NEGATIVE) mg/dL Urine Blood (NEGATIVE) Urine Nitrate (NEGATIVE) Urine Bilirubin (NEGATIVE) Urine Urobilinogen (<1 E.U./dL) E.U./dL Ur Leukocyte Esterase (NEGATIVE) Wili/uL Urine RBC (0-2) /hpf Urine WBC (0-6) /hpf Ur Epithelial Cells (0-5) /hpf Urine Bacteria (NEG) Blood Type Blood Type Confirm O POSITIVE Antibody Screen BBK History Checked Laboratory Results - last 24 hr 01/16/18 01/16/18 01/16/18 18:45 18:50 18:50 WBC 7.6 RBC 3.66 Hgb 10.6 L Hct 33.4 L MCV 91.3 MCH 29.0 MCHC 31.7 RDW 14.3 Plt Count 337 MPV 9.1 Gran % 61.7 Lymph % (Auto) 27.2 [place] % (Auto) 7.4 H Eos % (Auto) 3.3 Baso % (Auto) 0.4 Gran # 4.70 Lymph # (Auto) 2.1 [place] # (Auto) 0.6 Eos # (Auto) 0.3 Baso # (Auto) 0.03 PT 12.2 INR 1.07 APTT 27.4 Sodium Potassium Chloride Carbon Dioxide Anion Gap BUN Creatinine Est GFR ( Amer) Est GFR (Non-Af Amer) Random Glucose Calcium Phosphorus Magnesium Iron TIBC % Saturation Total Bilirubin AST ALT Alkaline Phosphatase Troponin I Total Protein Albumin Globulin Albumin/Globulin Ratio Triglycerides Cholesterol LDL Cholesterol Direct HDL Cholesterol TSH 3rd Generation Urine Color Urine Appearance Urine pH Ur Specific [place] Urine Protein Urine Glucose (UA) Urine Ketones Urine Blood Urine Nitrate Urine Bilirubin Urine Urobilinogen Ur Leukocyte Esterase Urine RBC Urine WBC Ur Epithelial Cells Urine Bacteria Blood Type Blood Type Confirm O POSITIVE Antibody Screen BBK History Checked 01/16/18 01/16/18 01/16/18 18:50 19:00 19:00 WBC RBC Hgb Hct MCV MCH MCHC RDW Plt Count MPV Gran % Lymph % (Auto) [place] % (Auto) Eos % (Auto) Baso % (Auto) Gran # Lymph # (Auto) [place] # (Auto) Eos # (Auto) Baso # (Auto) PT INR APTT Sodium 139 Potassium 3.8 Chloride 108 H Carbon Dioxide 23 Anion Gap 12 BUN 24 H Creatinine 1.2 Est GFR ( Amer) 51 Est GFR (Non-Af Amer) 42 Random Glucose 148 H Calcium 10.2 Phosphorus Magnesium Iron TIBC % Saturation Total Bilirubin 0.3 AST 34 ALT 26 Alkaline Phosphatase 156 H Troponin I 0.05 D Total Protein 7.6 Albumin 4.2 Globulin 3.3 Albumin/Globulin Ratio 1.3 Triglycerides 268 H Cholesterol 194 LDL Cholesterol Direct 54 HDL Cholesterol 39 TSH 3rd Generation 0.90 Urine Color Urine Appearance Urine pH Ur Specific [place] Urine Protein Urine Glucose (UA) Urine Ketones Urine Blood Urine Nitrate Urine Bilirubin Urine Urobilinogen Ur Leukocyte Esterase Urine RBC Urine WBC Ur Epithelial Cells Urine Bacteria Blood Type O POSITIVE Blood Type Confirm Antibody Screen Negative BBK History Checked No verified bt 01/16/18 01/16/18 01/17/18 22:50 23:11 01:03 WBC RBC Hgb Hct MCV MCH MCHC RDW Plt Count MPV Gran % Lymph % (Auto) [place] % (Auto) Eos % (Auto) Baso % (Auto) Gran # Lymph # (Auto) [place] # (Auto) Eos # (Auto) Baso # (Auto) PT INR APTT Sodium Potassium Chloride Carbon Dioxide Anion Gap BUN Creatinine Est GFR ( Amer) Est GFR (Non-Af Amer) Random Glucose Calcium Phosphorus Magnesium Iron 80 TIBC 365 % Saturation 22 Total Bilirubin AST ALT Alkaline Phosphatase Troponin I 0.05 Total Protein Albumin Globulin Albumin/Globulin Ratio Triglycerides Cholesterol LDL Cholesterol Direct HDL Cholesterol TSH 3rd Generation Urine Color Yellow Urine Appearance Clear Urine pH 6.0 Ur Specific [place] 1.015 Urine Protein Negative Urine Glucose (UA) Negative Urine Ketones Negative Urine Blood Trace-intact H Urine Nitrate Negative Urine Bilirubin Negative Urine Urobilinogen 0.2 Ur Leukocyte Esterase Negative Urine RBC 0 - 2 Urine WBC 0 - 2 Ur Epithelial Cells 0 - 2 Urine Bacteria Small Blood Type Blood Type Confirm Antibody Screen BBK History Checked 01/17/18 01/17/18 05:40 05:40 WBC 8.6 RBC 3.29 L Hgb 9.7 L Hct 29.8 L MCV 90.6 MCH 29.5 MCHC 32.6 RDW 14.4 Plt Count 277 MPV 9.0 Gran % 65.9 Lymph % (Auto) 24.1 [place] % (Auto) 6.4 H Eos % (Auto) 3.2 Baso % (Auto) 0.4 Gran # 5.64 Lymph # (Auto) 2.1 [place] # (Auto) 0.6 Eos # (Auto) 0.3 Baso # (Auto) 0.03 PT INR APTT Sodium 140 Potassium 3.9 Chloride 112 H Carbon Dioxide 22 Anion Gap 10 BUN 19 Creatinine 1.1 Est GFR ( Amer) 57 Est GFR (Non-Af Amer) 47 Random Glucose 102 Calcium 9.6 Phosphorus 3.1 Magnesium 1.9 Iron TIBC % Saturation Total Bilirubin 0.2 AST 26 ALT 32 Alkaline Phosphatase 133 H Troponin I 0.05 Total Protein 6.5 Albumin 3.5 Globulin 3.0 Albumin/Globulin Ratio 1.2 Triglycerides Cholesterol LDL Cholesterol Direct HDL Cholesterol TSH 3rd Generation Urine Color Urine Appearance Urine pH Ur Specific [place] Urine Protein Urine Glucose (UA) Urine Ketones Urine Blood Urine Nitrate Urine Bilirubin Urine Urobilinogen Ur Leukocyte Esterase Urine RBC Urine WBC Ur Epithelial Cells Urine Bacteria Blood Type Blood Type Confirm Antibody Screen BBK History Checked EKG/Cardiology Studies: Cardiology / EKG Studies 01/16/18 18:44 ELECTROCARDIOGRAM Stat Comment: Reason For Exam: code stroke Fingerstick Blood Sugar Results: 143 Review of Systems - Review of Systems All systems: reviewed and no additional remarkable complaints except (as per HPI) Critical Care Progress Note - Prophylaxis GI Prophylaxis GI: Pepsid - Nutrition Nutrition: Nutrition Category Date Time Status NPO Diet [DIET] Diets 01/16/18 Breakfast Ordered Assessment/Plan - Assessment and Plan (Free Text) Assessment: Patient is a 87 y/o F with PMHx of HTN, HLD, CAD (x1 stent in 2015), chronic lower extremity pain, anxiety who was admitted for ischemic stroke. She is not a candidate for tPA; most recent NIHSS was 6. ICU consulted for evaluation of patient. Plan: Neuro: - Ischemic stroke - f/u Brain MRI results - ASA 300mg daily for neuroprotection - Restarted on plavix as per cardiology - Head CT: no acute intracranial abnormalities - CT Head/Neck: no significant stenosis. Trace atherosclerotic changes. Left apical pulmonary nodule and bilateral thyroid nodules. - AAOx3. Left sided weakness on exam with left facial droop. - Frequent neurochecks and vital checks - Neuro is on consult. Appreciate recs. - Maintain normothermia - PT - Speech and Swallow eval Cardio: - Because of ischemic stroke, allow for permissive HTN with goal BP < 220/120 since patient is not a candidate for tPA as per neuro - After 24 hours, resume patient's home BP Meds as tolerated to control HTN - Echo with bubble study - Patient is off fluids - Maintain MAP > 65 - Cardiology is on consult. - Lipid panel shows hypertriglyceridemia - troponins negative x3 - EKG: NSR. Left axis deviation. - Hx HTN, CAD (x1 stent), and HLD Pulm: - Maintain SaO2 > 92% - No acute issues at this time GI: - GI ppx - NPO for now Renal: - Maintain euvolemia - Marcos in place - Monitor Ins/outs Heme: - Hold blood thinners at this time - H/H stable ID: - Afebrile; no leukocytosis - no active disease Endo: - TSH is within normal limits - Maintain euglycemia Code status: DNR/DNI Dispo: monitor patient in the ICU. Will continue with frequent neurochecks and vital sign checks for stroke protocol. Case was discussed and reviewed with Attending Physician, Dr. Lal <Tarun Lal - Last Filed: 01/17/18 16:03> CCU Objective - Vital Signs / Intake & Output Vital Signs (Last 4 hours): Vital Signs Pulse Resp BP Pulse Ox 01/17/18 14:00 67 01/17/18 12:15 67 15 148/74 96 01/17/18 12:10 67 19 98 01/17/18 12:00 67 15 157/76 H 99 Intake and Output (Last 8hrs): Intake & Output 01/17/18 01/17/18 01/17/18 06:59 14:59 22:59 Intake Total 875 Output Total 600 Balance 275 Weight 175 lb Intake: IV 875 Right Hand 875 Oral 0 Output: Urine 600 Urethral (Marcos) 600 - Medications Active Medications: Active Medications Generic Name Dose Route Start Last Admin Trade Name Freq PRN Reason Stop Dose Admin Ascorbic Acid 500 mg 01/17/18 10:00 01/17/18 10:00 Vitamin C 500 Mg Tab PO Not Given DAILY RUPERTO Aspirin 81 mg 01/18/18 10:00 Ecotrin PO DAILY RUPERTO Clopidogrel Bisulfate 75 mg 01/19/18 10:00 Plavix PO DAILY RUPERTO Ezetimibe 10 mg 01/17/18 10:00 01/17/18 14:37 Zetia PO 10 mg DAILY RUPERTO Administration Gemfibrozil 600 mg 01/17/18 10:00 01/17/18 14:42 Lopid PO 600 mg DAILY RUPERTO Administration Hydralazine HCl 10 mg 01/17/18 09:36 Apresoline IVP Q6 PRN FOR SBP>160 Losartan Potassium 100 mg 01/17/18 10:00 01/17/18 14:42 Cozaar PO 100 mg DAILY RUPERTO Administration Metoprolol Tartrate 25 mg 01/17/18 10:00 01/17/18 10:00 Lopressor PO Not Given BID RUPERTO Pantoprazole Sodium 40 mg 01/17/18 10:00 01/17/18 10:00 Protonix Ec Tab PO Not Given DAILY RUPERTO Sertraline HCl 50 mg 01/17/18 10:00 01/17/18 14:41 Zoloft PO 50 mg DAILY RUPERTO Administration - Patient Studies Lab Studies: Lab Studies 01/17/18 01/17/18 01/17/18 Range/Units 05:40 05:40 01:03 WBC 8.6 (4.5-11.0) 10^3/uL RBC 3.29 L (3.5-6.1) 10^6/uL Hgb 9.7 L (12.0-16.0) g/dL Hct 29.8 L (36.0-48.0) % MCV 90.6 (80.0-105.0) fl MCH 29.5 (25.0-35.0) pg MCHC 32.6 (31.0-37.0) g/dl RDW 14.4 (11.5-14.5) % Plt Count 277 (120.0-450.0) 10^3/uL MPV 9.0 (7.0-11.0) fl Gran % 65.9 (50.0-68.0) % Lymph % (Auto) 24.1 (22.0-35.0) % [place] % (Auto) 6.4 H (1.0-6.0) % Eos % (Auto) 3.2 (1.5-5.0) % Baso % (Auto) 0.4 (0.0-3.0) % Gran # 5.64 (1.4-6.5) Lymph # (Auto) 2.1 (1.2-3.4) [place] # (Auto) 0.6 (0.1-0.6) Eos # (Auto) 0.3 (0.0-0.7) Baso # (Auto) 0.03 (0.0-2.0) K/mm3 PT (9.4-12.5) SECONDS INR APTT (25.1-36.5) Seconds Sodium 140 (132-148) mmol/L Potassium 3.9 (3.6-5.0) mmol/L Chloride 112 H (98-107) mmol/L Carbon Dioxide 22 (21-33) mmol/L Anion Gap 10 (10-20) BUN 19 (7-21) mg/dL Creatinine 1.1 (0.7-1.2) mg/dl Est GFR ( Amer) 57 Est GFR (Non-Af Amer) 47 Random Glucose 102 (70-110) mg/dL Hemoglobin A1c (4.2-6.5) % Calcium 9.6 (8.4-10.5) mg/dL Phosphorus 3.1 (2.5-4.5) mg/dL Magnesium 1.9 (1.7-2.2) mg/dL Iron (45-180) ug/dL TIBC (265-497) ug/dL % Saturation (20-55) % Ferritin ng/mL Total Bilirubin 0.2 (0.2-1.3) mg/dL AST 26 (14-36) U/L ALT 32 (7-56) U/L Alkaline Phosphatase 133 H (38-126) U/L Troponin I 0.05 0.05 ng/mL Total Protein 6.5 (5.8-8.3) g/dL Albumin 3.5 (3.0-4.8) g/dL Globulin 3.0 gm/dL Albumin/Globulin Ratio 1.2 (1.1-1.8) Triglycerides (35-160) mg/dL Cholesterol (130-200) mg/dL LDL Cholesterol Direct (0-129) mg/dL HDL Cholesterol (29-60) mg/dL Vitamin B12 (239-931) pg/mL Folate ng/mL TSH 3rd Generation (0.46-4.68) mIU/mL Urine Color (YELLOW) Urine Appearance (CLEAR) Urine pH (4.7-8.0) Ur Specific [place] (1.005-1.035) Urine Protein (<30 mg/dL) mg/dL Urine Glucose (UA) (NEGATIVE) mg/dL Urine Ketones (NEGATIVE) mg/dL Urine Blood (NEGATIVE) Urine Nitrate (NEGATIVE) Urine Bilirubin (NEGATIVE) Urine Urobilinogen (<1 E.U./dL) E.U./dL Ur Leukocyte Esterase (NEGATIVE) Wili/uL Urine RBC (0-2) /hpf Urine WBC (0-6) /hpf Ur Epithelial Cells (0-5) /hpf Urine Bacteria (NEG) Blood Type Blood Type Confirm Antibody Screen BBK History Checked 01/16/18 01/16/18 01/16/18 Range/Units 23:11 23:11 22:50 WBC (4.5-11.0) 10^3/uL RBC (3.5-6.1) 10^6/uL Hgb (12.0-16.0) g/dL Hct (36.0-48.0) % MCV (80.0-105.0) fl MCH (25.0-35.0) pg MCHC (31.0-37.0) g/dl RDW (11.5-14.5) % Plt Count (120.0-450.0) 10^3/uL MPV (7.0-11.0) fl Gran % (50.0-68.0) % Lymph % (Auto) (22.0-35.0) % [place] % (Auto) (1.0-6.0) % Eos % (Auto) (1.5-5.0) % Baso % (Auto) (0.0-3.0) % Gran # (1.4-6.5) Lymph # (Auto) (1.2-3.4) [place] # (Auto) (0.1-0.6) Eos # (Auto) (0.0-0.7) Baso # (Auto) (0.0-2.0) K/mm3 PT (9.4-12.5) SECONDS INR APTT (25.1-36.5) Seconds Sodium (132-148) mmol/L Potassium (3.6-5.0) mmol/L Chloride (98-107) mmol/L Carbon Dioxide (21-33) mmol/L Anion Gap (10-20) BUN (7-21) mg/dL Creatinine (0.7-1.2) mg/dl Est GFR ( Amer) Est GFR (Non-Af Amer) Random Glucose (70-110) mg/dL Hemoglobin A1c (4.2-6.5) % Calcium (8.4-10.5) mg/dL Phosphorus (2.5-4.5) mg/dL Magnesium (1.7-2.2) mg/dL Iron 80 (45-180) ug/dL TIBC 365 (265-497) ug/dL % Saturation 22 (20-55) % Ferritin 48.6 ng/mL Total Bilirubin (0.2-1.3) mg/dL AST (14-36) U/L ALT (7-56) U/L Alkaline Phosphatase (38-126) U/L Troponin I ng/mL Total Protein (5.8-8.3) g/dL Albumin (3.0-4.8) g/dL Globulin gm/dL Albumin/Globulin Ratio (1.1-1.8) Triglycerides (35-160) mg/dL Cholesterol (130-200) mg/dL LDL Cholesterol Direct (0-129) mg/dL HDL Cholesterol (29-60) mg/dL Vitamin B12 (239-931) pg/mL Folate 14.8 ng/mL TSH 3rd Generation (0.46-4.68) mIU/mL Urine Color Yellow (YELLOW) Urine Appearance Clear (CLEAR) Urine pH 6.0 (4.7-8.0) Ur Specific [place] 1.015 (1.005-1.035) Urine Protein Negative (<30 mg/dL) mg/dL Urine Glucose (UA) Negative (NEGATIVE) mg/dL Urine Ketones Negative (NEGATIVE) mg/dL Urine Blood Trace-intact H (NEGATIVE) Urine Nitrate Negative (NEGATIVE) Urine Bilirubin Negative (NEGATIVE) Urine Urobilinogen 0.2 (<1 E.U./dL) E.U./dL Ur Leukocyte Esterase Negative (NEGATIVE) Wili/uL Urine RBC 0 - 2 (0-2) /hpf Urine WBC 0 - 2 (0-6) /hpf Ur Epithelial Cells 0 - 2 (0-5) /hpf Urine Bacteria Small (NEG) Blood Type Blood Type Confirm Antibody Screen BBK History Checked 01/16/18 01/16/18 01/16/18 Range/Units 19:00 19:00 19:00 WBC (4.5-11.0) 10^3/uL RBC (3.5-6.1) 10^6/uL Hgb (12.0-16.0) g/dL Hct (36.0-48.0) % MCV (80.0-105.0) fl MCH (25.0-35.0) pg MCHC (31.0-37.0) g/dl RDW (11.5-14.5) % Plt Count (120.0-450.0) 10^3/uL MPV (7.0-11.0) fl Gran % (50.0-68.0) % Lymph % (Auto) (22.0-35.0) % [place] % (Auto) (1.0-6.0) % Eos % (Auto) (1.5-5.0) % Baso % (Auto) (0.0-3.0) % Gran # (1.4-6.5) Lymph # (Auto) (1.2-3.4) [place] # (Auto) (0.1-0.6) Eos # (Auto) (0.0-0.7) Baso # (Auto) (0.0-2.0) K/mm3 PT (9.4-12.5) SECONDS INR APTT (25.1-36.5) Seconds Sodium (132-148) mmol/L Potassium (3.6-5.0) mmol/L Chloride (98-107) mmol/L Carbon Dioxide (21-33) mmol/L Anion Gap (10-20) BUN (7-21) mg/dL Creatinine (0.7-1.2) mg/dl Est GFR ( Amer) Est GFR (Non-Af Amer) Random Glucose (70-110) mg/dL Hemoglobin A1c (4.2-6.5) % Calcium (8.4-10.5) mg/dL Phosphorus (2.5-4.5) mg/dL Magnesium (1.7-2.2) mg/dL Iron (45-180) ug/dL TIBC (265-497) ug/dL % Saturation (20-55) % Ferritin ng/mL Total Bilirubin (0.2-1.3) mg/dL AST (14-36) U/L ALT (7-56) U/L Alkaline Phosphatase (38-126) U/L Troponin I ng/mL Total Protein (5.8-8.3) g/dL Albumin (3.0-4.8) g/dL Globulin gm/dL Albumin/Globulin Ratio (1.1-1.8) Triglycerides (35-160) mg/dL Cholesterol (130-200) mg/dL LDL Cholesterol Direct (0-129) mg/dL HDL Cholesterol (29-60) mg/dL Vitamin B12 903 (239-931) pg/mL Folate ng/mL TSH 3rd Generation 0.90 (0.46-4.68) mIU/mL Urine Color (YELLOW) Urine Appearance (CLEAR) Urine pH (4.7-8.0) Ur Specific [place] (1.005-1.035) Urine Protein (<30 mg/dL) mg/dL Urine Glucose (UA) (NEGATIVE) mg/dL Urine Ketones (NEGATIVE) mg/dL Urine Blood (NEGATIVE) Urine Nitrate (NEGATIVE) Urine Bilirubin (NEGATIVE) Urine Urobilinogen (<1 E.U./dL) E.U./dL Ur Leukocyte Esterase (NEGATIVE) Wili/uL Urine RBC (0-2) /hpf Urine WBC (0-6) /hpf Ur Epithelial Cells (0-5) /hpf Urine Bacteria (NEG) Blood Type O POSITIVE Blood Type Confirm Antibody Screen Negative BBK History Checked No verified bt 01/16/18 01/16/18 01/16/18 Range/Units 18:50 18:50 18:50 WBC (4.5-11.0) 10^3/uL RBC (3.5-6.1) 10^6/uL Hgb (12.0-16.0) g/dL Hct (36.0-48.0) % MCV (80.0-105.0) fl MCH (25.0-35.0) pg MCHC (31.0-37.0) g/dl RDW (11.5-14.5) % Plt Count (120.0-450.0) 10^3/uL MPV (7.0-11.0) fl Gran % (50.0-68.0) % Lymph % (Auto) (22.0-35.0) % [place] % (Auto) (1.0-6.0) % Eos % (Auto) (1.5-5.0) % Baso % (Auto) (0.0-3.0) % Gran # (1.4-6.5) Lymph # (Auto) (1.2-3.4) [place] # (Auto) (0.1-0.6) Eos # (Auto) (0.0-0.7) Baso # (Auto) (0.0-2.0) K/mm3 PT 12.2 (9.4-12.5) SECONDS INR 1.07 APTT 27.4 (25.1-36.5) Seconds Sodium 139 (132-148) mmol/L Potassium 3.8 (3.6-5.0) mmol/L Chloride 108 H (98-107) mmol/L Carbon Dioxide 23 (21-33) mmol/L Anion Gap 12 (10-20) BUN 24 H (7-21) mg/dL Creatinine 1.2 (0.7-1.2) mg/dl Est GFR ( Amer) 51 Est GFR (Non-Af Amer) 42 Random Glucose 148 H (70-110) mg/dL Hemoglobin A1c 6.0 (4.2-6.5) % Calcium 10.2 (8.4-10.5) mg/dL Phosphorus (2.5-4.5) mg/dL Magnesium (1.7-2.2) mg/dL Iron (45-180) ug/dL TIBC (265-497) ug/dL % Saturation (20-55) % Ferritin ng/mL Total Bilirubin 0.3 (0.2-1.3) mg/dL AST 34 (14-36) U/L ALT 26 (7-56) U/L Alkaline Phosphatase 156 H (38-126) U/L Troponin I 0.05 D ng/mL Total Protein 7.6 (5.8-8.3) g/dL Albumin 4.2 (3.0-4.8) g/dL Globulin 3.3 gm/dL Albumin/Globulin Ratio 1.3 (1.1-1.8) Triglycerides 268 H (35-160) mg/dL Cholesterol 194 (130-200) mg/dL LDL Cholesterol Direct 54 (0-129) mg/dL HDL Cholesterol 39 (29-60) mg/dL Vitamin B12 (239-931) pg/mL Folate ng/mL TSH 3rd Generation (0.46-4.68) mIU/mL Urine Color (YELLOW) Urine Appearance (CLEAR) Urine pH (4.7-8.0) Ur Specific [place] (1.005-1.035) Urine Protein (<30 mg/dL) mg/dL Urine Glucose (UA) (NEGATIVE) mg/dL Urine Ketones (NEGATIVE) mg/dL Urine Blood (NEGATIVE) Urine Nitrate (NEGATIVE) Urine Bilirubin (NEGATIVE) Urine Urobilinogen (<1 E.U./dL) E.U./dL Ur Leukocyte Esterase (NEGATIVE) Wili/uL Urine RBC (0-2) /hpf Urine WBC (0-6) /hpf Ur Epithelial Cells (0-5) /hpf Urine Bacteria (NEG) Blood Type Blood Type Confirm Antibody Screen BBK History Checked 01/16/18 01/16/18 Range/Units 18:50 18:45 WBC 7.6 (4.5-11.0) 10^3/uL RBC 3.66 (3.5-6.1) 10^6/uL Hgb 10.6 L (12.0-16.0) g/dL Hct 33.4 L (36.0-48.0) % MCV 91.3 (80.0-105.0) fl MCH 29.0 (25.0-35.0) pg MCHC 31.7 (31.0-37.0) g/dl RDW 14.3 (11.5-14.5) % Plt Count 337 (120.0-450.0) 10^3/uL MPV 9.1 (7.0-11.0) fl Gran % 61.7 (50.0-68.0) % Lymph % (Auto) 27.2 (22.0-35.0) % [place] % (Auto) 7.4 H (1.0-6.0) % Eos % (Auto) 3.3 (1.5-5.0) % Baso % (Auto) 0.4 (0.0-3.0) % Gran # 4.70 (1.4-6.5) Lymph # (Auto) 2.1 (1.2-3.4) [place] # (Auto) 0.6 (0.1-0.6) Eos # (Auto) 0.3 (0.0-0.7) Baso # (Auto) 0.03 (0.0-2.0) K/mm3 PT (9.4-12.5) SECONDS INR APTT (25.1-36.5) Seconds Sodium (132-148) mmol/L Potassium (3.6-5.0) mmol/L Chloride (98-107) mmol/L Carbon Dioxide (21-33) mmol/L Anion Gap (10-20) BUN (7-21) mg/dL Creatinine (0.7-1.2) mg/dl Est GFR ( Amer) Est GFR (Non-Af Amer) Random Glucose (70-110) mg/dL Hemoglobin A1c (4.2-6.5) % Calcium (8.4-10.5) mg/dL Phosphorus (2.5-4.5) mg/dL Magnesium (1.7-2.2) mg/dL Iron (45-180) ug/dL TIBC (265-497) ug/dL % Saturation (20-55) % Ferritin ng/mL Total Bilirubin (0.2-1.3) mg/dL AST (14-36) U/L ALT (7-56) U/L Alkaline Phosphatase (38-126) U/L Troponin I ng/mL Total Protein (5.8-8.3) g/dL Albumin (3.0-4.8) g/dL Globulin gm/dL Albumin/Globulin Ratio (1.1-1.8) Triglycerides (35-160) mg/dL Cholesterol (130-200) mg/dL LDL Cholesterol Direct (0-129) mg/dL HDL Cholesterol (29-60) mg/dL Vitamin B12 (239-931) pg/mL Folate ng/mL TSH 3rd Generation (0.46-4.68) mIU/mL Urine Color (YELLOW) Urine Appearance (CLEAR) Urine pH (4.7-8.0) Ur Specific [place] (1.005-1.035) Urine Protein (<30 mg/dL) mg/dL Urine Glucose (UA) (NEGATIVE) mg/dL Urine Ketones (NEGATIVE) mg/dL Urine Blood (NEGATIVE) Urine Nitrate (NEGATIVE) Urine Bilirubin (NEGATIVE) Urine Urobilinogen (<1 E.U./dL) E.U./dL Ur Leukocyte Esterase (NEGATIVE) Wili/uL Urine RBC (0-2) /hpf Urine WBC (0-6) /hpf Ur Epithelial Cells (0-5) /hpf Urine Bacteria (NEG) Blood Type Blood Type Confirm O POSITIVE Antibody Screen BBK History Checked Laboratory Results - last 24 hr 01/16/18 01/16/18 01/16/18 18:45 18:50 18:50 WBC 7.6 RBC 3.66 Hgb 10.6 L Hct 33.4 L MCV 91.3 MCH 29.0 MCHC 31.7 RDW 14.3 Plt Count 337 MPV 9.1 Gran % 61.7 Lymph % (Auto) 27.2 [place] % (Auto) 7.4 H Eos % (Auto) 3.3 Baso % (Auto) 0.4 Gran # 4.70 Lymph # (Auto) 2.1 [place] # (Auto) 0.6 Eos # (Auto) 0.3 Baso # (Auto) 0.03 PT 12.2 INR 1.07 APTT 27.4 Sodium Potassium Chloride Carbon Dioxide Anion Gap BUN Creatinine Est GFR ( Amer) Est GFR (Non-Af Amer) Random Glucose Hemoglobin A1c Calcium Phosphorus Magnesium Iron TIBC % Saturation Ferritin Total Bilirubin AST ALT Alkaline Phosphatase Troponin I Total Protein Albumin Globulin Albumin/Globulin Ratio Triglycerides Cholesterol LDL Cholesterol Direct HDL Cholesterol Vitamin B12 Folate TSH 3rd Generation Urine Color Urine Appearance Urine pH Ur Specific [place] Urine Protein Urine Glucose (UA) Urine Ketones Urine Blood Urine Nitrate Urine Bilirubin Urine Urobilinogen Ur Leukocyte Esterase Urine RBC Urine WBC Ur Epithelial Cells Urine Bacteria Blood Type Blood Type Confirm O POSITIVE Antibody Screen BBK History Checked 01/16/18 01/16/18 01/16/18 18:50 18:50 19:00 WBC RBC Hgb Hct MCV MCH MCHC RDW Plt Count MPV Gran % Lymph % (Auto) [place] % (Auto) Eos % (Auto) Baso % (Auto) Gran # Lymph # (Auto) [place] # (Auto) Eos # (Auto) Baso # (Auto) PT INR APTT Sodium 139 Potassium 3.8 Chloride 108 H Carbon Dioxide 23 Anion Gap 12 BUN 24 H Creatinine 1.2 Est GFR ( Amer) 51 Est GFR (Non-Af Amer) 42 Random Glucose 148 H Hemoglobin A1c 6.0 Calcium 10.2 Phosphorus Magnesium Iron TIBC % Saturation Ferritin Total Bilirubin 0.3 AST 34 ALT 26 Alkaline Phosphatase 156 H Troponin I 0.05 D Total Protein 7.6 Albumin 4.2 Globulin 3.3 Albumin/Globulin Ratio 1.3 Triglycerides 268 H Cholesterol 194 LDL Cholesterol Direct 54 HDL Cholesterol 39 Vitamin B12 Folate TSH 3rd Generation Urine Color Urine Appearance Urine pH Ur Specific [place] Urine Protein Urine Glucose (UA) Urine Ketones Urine Blood Urine Nitrate Urine Bilirubin Urine Urobilinogen Ur Leukocyte Esterase Urine RBC Urine WBC Ur Epithelial Cells Urine Bacteria Blood Type O POSITIVE Blood Type Confirm Antibody Screen Negative BBK History Checked No verified bt 01/16/18 01/16/18 01/16/18 19:00 19:00 22:50 WBC RBC Hgb Hct MCV MCH MCHC RDW Plt Count MPV Gran % Lymph % (Auto) [place] % (Auto) Eos % (Auto) Baso % (Auto) Gran # Lymph # (Auto) [place] # (Auto) Eos # (Auto) Baso # (Auto) PT INR APTT Sodium Potassium Chloride Carbon Dioxide Anion Gap BUN Creatinine Est GFR ( Amer) Est GFR (Non-Af Amer) Random Glucose Hemoglobin A1c Calcium Phosphorus Magnesium Iron TIBC % Saturation Ferritin Total Bilirubin AST ALT Alkaline Phosphatase Troponin I Total Protein Albumin Globulin Albumin/Globulin Ratio Triglycerides Cholesterol LDL Cholesterol Direct HDL Cholesterol Vitamin B12 903 Folate TSH 3rd Generation 0.90 Urine Color Yellow Urine Appearance Clear Urine pH 6.0 Ur Specific [place] 1.015 Urine Protein Negative Urine Glucose (UA) Negative Urine Ketones Negative Urine Blood Trace-intact H Urine Nitrate Negative Urine Bilirubin Negative Urine Urobilinogen 0.2 Ur Leukocyte Esterase Negative Urine RBC 0 - 2 Urine WBC 0 - 2 Ur Epithelial Cells 0 - 2 Urine Bacteria Small Blood Type Blood Type Confirm Antibody Screen BBK History Checked 01/16/18 01/16/18 01/17/18 23:11 23:11 01:03 WBC RBC Hgb Hct MCV MCH MCHC RDW Plt Count MPV Gran % Lymph % (Auto) [place] % (Auto) Eos % (Auto) Baso % (Auto) Gran # Lymph # (Auto) [place] # (Auto) Eos # (Auto) Baso # (Auto) PT INR APTT Sodium Potassium Chloride Carbon Dioxide Anion Gap BUN Creatinine Est GFR ( Amer) Est GFR (Non-Af Amer) Random Glucose Hemoglobin A1c Calcium Phosphorus Magnesium Iron 80 TIBC 365 % Saturation 22 Ferritin 48.6 Total Bilirubin AST ALT Alkaline Phosphatase Troponin I 0.05 Total Protein Albumin Globulin Albumin/Globulin Ratio Triglycerides Cholesterol LDL Cholesterol Direct HDL Cholesterol Vitamin B12 Folate 14.8 TSH 3rd Generation Urine Color Urine Appearance Urine pH Ur Specific [place] Urine Protein Urine Glucose (UA) Urine Ketones Urine Blood Urine Nitrate Urine Bilirubin Urine Urobilinogen Ur Leukocyte Esterase Urine RBC Urine WBC Ur Epithelial Cells Urine Bacteria Blood Type Blood Type Confirm Antibody Screen BBK History Checked 01/17/18 01/17/18 05:40 05:40 WBC 8.6 RBC 3.29 L Hgb 9.7 L Hct 29.8 L MCV 90.6 MCH 29.5 MCHC 32.6 RDW 14.4 Plt Count 277 MPV 9.0 Gran % 65.9 Lymph % (Auto) 24.1 [place] % (Auto) 6.4 H Eos % (Auto) 3.2 Baso % (Auto) 0.4 Gran # 5.64 Lymph # (Auto) 2.1 [place] # (Auto) 0.6 Eos # (Auto) 0.3 Baso # (Auto) 0.03 PT INR APTT Sodium 140 Potassium 3.9 Chloride 112 H Carbon Dioxide 22 Anion Gap 10 BUN 19 Creatinine 1.1 Est GFR ( Amer) 57 Est GFR (Non-Af Amer) 47 Random Glucose 102 Hemoglobin A1c Calcium 9.6 Phosphorus 3.1 Magnesium 1.9 Iron TIBC % Saturation Ferritin Total Bilirubin 0.2 AST 26 ALT 32 Alkaline Phosphatase 133 H Troponin I 0.05 Total Protein 6.5 Albumin 3.5 Globulin 3.0 Albumin/Globulin Ratio 1.2 Triglycerides Cholesterol LDL Cholesterol Direct HDL Cholesterol Vitamin B12 Folate TSH 3rd Generation Urine Color Urine Appearance Urine pH Ur Specific [place] Urine Protein Urine Glucose (UA) Urine Ketones Urine Blood Urine Nitrate Urine Bilirubin Urine Urobilinogen Ur Leukocyte Esterase Urine RBC Urine WBC Ur Epithelial Cells Urine Bacteria Blood Type Blood Type Confirm Antibody Screen BBK History Checked EKG/Cardiology Studies: Cardiology / EKG Studies 01/16/18 18:44 ELECTROCARDIOGRAM Stat Comment: Reason For Exam: code stroke Critical Care Progress Note - Nutrition Nutrition: Nutrition Category Date Time Status Heart Healthy Diet [DIET] Diets 01/17/18 Dinner Active Attending/Attestation - Attestation I have personally seen and examined this patient.: Yes I have fully participated in the care of the patient.: Yes I have reviewed all pertinent clinical information: Yes Notes (Text): 01/17/18 15:58 87 yo with new onset of acute stroke, not a candidate for tPA, admitted to ICU for further management and monitoring. protecting airways, comfortable no chest pain, BP is elevated, which is watchfully observed and allowed according to AHA recommendations up to 220/120 for the first 24 hrs. Aspirin within first 24-48 hrs, speech and swallow eval, echo, carotid doppler, PT/OT. maintain euvolemia, euglycemia and 02sat>90%. dvt/gi prophylaxis. ccm time 40 min
[2018-01-17] MEDS ORDERED: METOPROLOL SUCCINATE 100 MG PO SCH (10:00)
[2018-01-17] MEDS: Pantoprazole 40 mg EC Tab PO SCH (10:00)
--- NOTE | 2018-01-17 10:10 | CP.PCM.CON ---
History of Present Illness - History of Present Illness History of Present Illness: Palliative consult requested by Dr Fco Phillips Reason: Goals of care and advance care planning 87 year old female who was found altered and mumbling her words by family. The patient denied fever,chills, headache,dizziness, visual/auditory changes, abdominal /chest pain, nausea,vomiting,diarrhea, constipation or urinary symptoms. Family reports that patient has had two recent falls without injury within the last few weeks. Chest x ray: No active disease CT of Head: No acute intacranial findings. Head CTA: NO significant stenosis of brain or neck, trace atherosclerotic changes. Left apical pulmonary nodules> chest CT recommended. Bilateral thyroid nodules> US recommended. MRI of Brain: Results pending EKG: NSR, left axis dev, NS ST/T wave changes. Echo: Results pending Labs: ALK PHOS 133, labs WNL PMHx: HTN,HLD,CAD,anemia,chronic back pain,anxiety. PHSx: cardiac cath,bilateral knee replacement, cholecystectomy. Family History: Non contributory. Social History: Never smoker, no alcohol or drug use. Lives independent Advance Care Planning: The patient has an Advanced Directive. Her daughter, Dori Christopher( [phone]) is her health care surrogate Past Patient History - Tetanus Immunizations Tetanus Immunization: Unknown - Past Social History Smoking Status: Never Smoked - CARDIAC Hx Hypertension: Yes - PULMONARY Hx Respiratory Disorders: No - NEUROLOGICAL Hx Neurological Disorder: No - HEENT Hx HEENT Problems: No - RENAL Hx Chronic Kidney Disease: No - ENDOCRINE/METABOLIC Hx Endocrine Disorders: No - HEMATOLOGICAL/ONCOLOGICAL Hx Anemia: Yes - INTEGUMENTARY Hx Dermatological Problems: No - MUSCULOSKELETAL/RHEUMATOLOGICAL Hx Arthritis: Yes Hx Falls: Yes - GASTROINTESTINAL Hx Gastrointestinal Disorders: No - GENITOURINARY/GYNECOLOGICAL Hx Genitourinary Disorders: No - PSYCHIATRIC Hx Depression: Yes Hx Emotional Abuse: No Hx Physical Abuse: No - SURGICAL HISTORY Hx Cardiac Catheterization: Yes (2014) Hx Hysterectomy: Yes Hx Orthopedic Surgery: Yes (knee replacement) - ANESTHESIA Hx Anesthesia: Yes Hx Anesthesia Reactions: No Hx Malignant Hyperthermia: No Meds Allergies/Adverse Reactions: Allergies Allergy/AdvReac Type Severity Reaction Status Date / Time codeine Allergy ANAPHYLAXIS Verified 01/11/18 13:15 - Medications Medications: Current Medications Ascorbic Acid (Vitamin C 500 Mg Tab) 500 mg PO DAILY [facility] Aspirin (Ecotrin) 81 mg PO DAILY [facility] Clopidogrel Bisulfate (Plavix) 75 mg PO DAILY [facility] Ezetimibe (Zetia) 10 mg PO DAILY [facility] Famotidine (Pepcid) 20 mg IVP DAILY [facility] Last Admin: 01/17/18 09:52 Dose: 20 mg Gemfibrozil (Lopid) 600 mg PO DAILY [facility] Hydralazine HCl (Apresoline) 10 mg IVP Q6 PRN PRN Reason: FOR SBP>160 Losartan Potassium (Cozaar) 100 mg PO DAILY [facility] Metoprolol Tartrate (Lopressor) 25 mg PO BID [facility] Pantoprazole Sodium (Protonix Ec Tab) 40 mg PO DAILY [facility] Sertraline HCl (Zoloft) 50 mg PO DAILY [facility] Physical Exam - Constitutional Appears: No Acute Distress - Head Exam Additional comments: left sided facial droop - Eye Exam Eye Exam: Normal appearance, PERRL - ENT Exam ENT Exam: Mucous Membranes Moist, Normal Oropharynx - Neck Exam Neck exam: Positive for: Normal Inspection - Respiratory Exam Respiratory Exam: Clear to Auscultation Bilateral, NORMAL BREATHING PATTERN - Cardiovascular Exam Cardiovascular Exam: REGULAR RHYTHM, +S1, +S2 - GI/Abdominal Exam GI & Abdominal Exam: Normal Bowel Sounds, Soft Additional comments: no tenderness or guarding - Extremities Exam Additional comments: Left upper extremity weakness - Back Exam Back exam: tenderness - Neurological Exam Neurological exam: Alert Additional comments: oriented to place and self - Skin Skin Exam: Dry, Warm - Additional Findings Additional findings: palliative performance scale rating 20% Results - Vital Signs Recent Vital Signs: Last Vital Signs Temp 98.9 F 01/17/18 03:40 Pulse 62 01/17/18 06:00 Resp 15 01/17/18 05:00 BP 202/97 H 01/17/18 05:00 Pulse Ox 97 01/17/18 05:00 - Labs Result Diagrams: 01/17/18 05:40 01/17/18 05:40 Labs: Laboratory Results - last 24 hr 01/16/18 01/16/18 01/16/18 18:45 18:50 18:50 WBC 7.6 RBC 3.66 Hgb 10.6 L Hct 33.4 L MCV 91.3 MCH 29.0 MCHC 31.7 RDW 14.3 Plt Count 337 MPV 9.1 Gran % 61.7 Lymph % (Auto) 27.2 [place] % (Auto) 7.4 H Eos % (Auto) 3.3 Baso % (Auto) 0.4 Gran # 4.70 Lymph # (Auto) 2.1 [place] # (Auto) 0.6 Eos # (Auto) 0.3 Baso # (Auto) 0.03 PT 12.2 INR 1.07 APTT 27.4 Sodium Potassium Chloride Carbon Dioxide Anion Gap BUN Creatinine Est GFR ( Amer) Est GFR (Non-Af Amer) Random Glucose Calcium Phosphorus Magnesium Iron TIBC % Saturation Total Bilirubin AST ALT Alkaline Phosphatase Troponin I Total Protein Albumin Globulin Albumin/Globulin Ratio Triglycerides Cholesterol LDL Cholesterol Direct HDL Cholesterol TSH 3rd Generation Urine Color Urine Appearance Urine pH Ur Specific [place] Urine Protein Urine Glucose (UA) Urine Ketones Urine Blood Urine Nitrate Urine Bilirubin Urine Urobilinogen Ur Leukocyte Esterase Urine RBC Urine WBC Ur Epithelial Cells Urine Bacteria Blood Type Blood Type Confirm O POSITIVE Antibody Screen BBK History Checked 01/16/18 01/16/18 01/16/18 18:50 19:00 19:00 WBC RBC Hgb Hct MCV MCH MCHC RDW Plt Count MPV Gran % Lymph % (Auto) [place] % (Auto) Eos % (Auto) Baso % (Auto) Gran # Lymph # (Auto) [place] # (Auto) Eos # (Auto) Baso # (Auto) PT INR APTT Sodium 139 Potassium 3.8 Chloride 108 H Carbon Dioxide 23 Anion Gap 12 BUN 24 H Creatinine 1.2 Est GFR ( Amer) 51 Est GFR (Non-Af Amer) 42 Random Glucose 148 H Calcium 10.2 Phosphorus Magnesium Iron TIBC % Saturation Total Bilirubin 0.3 AST 34 ALT 26 Alkaline Phosphatase 156 H Troponin I 0.05 D Total Protein 7.6 Albumin 4.2 Globulin 3.3 Albumin/Globulin Ratio 1.3 Triglycerides 268 H Cholesterol 194 LDL Cholesterol Direct 54 HDL Cholesterol 39 TSH 3rd Generation 0.90 Urine Color Urine Appearance Urine pH Ur Specific [place] Urine Protein Urine Glucose (UA) Urine Ketones Urine Blood Urine Nitrate Urine Bilirubin Urine Urobilinogen Ur Leukocyte Esterase Urine RBC Urine WBC Ur Epithelial Cells Urine Bacteria Blood Type O POSITIVE Blood Type Confirm Antibody Screen Negative BBK History Checked No verified bt 01/16/18 01/16/18 01/17/18 22:50 23:11 01:03 WBC RBC Hgb Hct MCV MCH MCHC RDW Plt Count MPV Gran % Lymph % (Auto) [place] % (Auto) Eos % (Auto) Baso % (Auto) Gran # Lymph # (Auto) [place] # (Auto) Eos # (Auto) Baso # (Auto) PT INR APTT Sodium Potassium Chloride Carbon Dioxide Anion Gap BUN Creatinine Est GFR ( Amer) Est GFR (Non-Af Amer) Random Glucose Calcium Phosphorus Magnesium Iron 80 TIBC 365 % Saturation 22 Total Bilirubin AST ALT Alkaline Phosphatase Troponin I 0.05 Total Protein Albumin Globulin Albumin/Globulin Ratio Triglycerides Cholesterol LDL Cholesterol Direct HDL Cholesterol TSH 3rd Generation Urine Color Yellow Urine Appearance Clear Urine pH 6.0 Ur Specific [place] 1.015 Urine Protein Negative Urine Glucose (UA) Negative Urine Ketones Negative Urine Blood Trace-intact H Urine Nitrate Negative Urine Bilirubin Negative Urine Urobilinogen 0.2 Ur Leukocyte Esterase Negative Urine RBC 0 - 2 Urine WBC 0 - 2 Ur Epithelial Cells 0 - 2 Urine Bacteria Small Blood Type Blood Type Confirm Antibody Screen BBK History Checked 01/17/18 01/17/18 05:40 05:40 WBC 8.6 RBC 3.29 L Hgb 9.7 L Hct 29.8 L MCV 90.6 MCH 29.5 MCHC 32.6 RDW 14.4 Plt Count 277 MPV 9.0 Gran % 65.9 Lymph % (Auto) 24.1 [place] % (Auto) 6.4 H Eos % (Auto) 3.2 Baso % (Auto) 0.4 Gran # 5.64 Lymph # (Auto) 2.1 [place] # (Auto) 0.6 Eos # (Auto) 0.3 Baso # (Auto) 0.03 PT INR APTT Sodium 140 Potassium 3.9 Chloride 112 H Carbon Dioxide 22 Anion Gap 10 BUN 19 Creatinine 1.1 Est GFR ( Amer) 57 Est GFR (Non-Af Amer) 47 Random Glucose 102 Calcium 9.6 Phosphorus 3.1 Magnesium 1.9 Iron TIBC % Saturation Total Bilirubin 0.2 AST 26 ALT 32 Alkaline Phosphatase 133 H Troponin I 0.05 Total Protein 6.5 Albumin 3.5 Globulin 3.0 Albumin/Globulin Ratio 1.2 Triglycerides Cholesterol LDL Cholesterol Direct HDL Cholesterol TSH 3rd Generation Urine Color Urine Appearance Urine pH Ur Specific [place] Urine Protein Urine Glucose (UA) Urine Ketones Urine Blood Urine Nitrate Urine Bilirubin Urine Urobilinogen Ur Leukocyte Esterase Urine RBC Urine WBC Ur Epithelial Cells Urine Bacteria Blood Type Blood Type Confirm Antibody Screen BBK History Checked Assessment & Plan - Assessment and Plan (Free Text) Assessment: 87 year old female with history of CAD,HTN,HLD chronic back pain who is admitted with AMS,slurred speech and left sided facial droop. Patients daughter Dori Christopher and I spoke at length regarding goals of care and advance care planning. Dori is a retired ICU nurse and verbalizes understanding of her mother situation and understands that her mother may not rebound from current situation. Resuscitation status discussed, Dori states her mother wants to be DNR/DNI. POLST Directive completed. Time spent with patients daughter in goals of care and advance care planning, 45 minutes Plan: Goals of care and advance care planning; POLST DNR/DNI. AMS/Slurred speech: CT Head/ CTA negative intracranial findings. MRI of brain re sults pending. Neuro checks Lung nodules: Follow up Chest CT recommended. Thyroid nodules: US recommended [place]: ECHO results pending Speech and swallow exam PT/OT
--- NOTE | 2018-01-17 10:45 | CT ---
Date of service: 01/16/2018 PROCEDURE: CT HEAD WITHOUT CONTRAST. HISTORY: Code Stroke COMPARISON: None available. TECHNIQUE: Axial computed tomography images were obtained through the head/brain without intravenous contrast. Supplemental Coronal and Sagittal projections created and reviewed. Radiation dose: Total exam DLP = 2094.23 mGy-cm. This CT exam was performed using one or more of the following dose reduction techniques: Automated exposure control, adjustment of the mA and/or kV according to patient size, and/or use of iterative reconstruction technique. FINDINGS: HEMORRHAGE: No intracranial hemorrhage. BRAIN: No mass effect or edema. Cortical and cerebellar atrophy, periventricular small vessel disease. VENTRICLES: Unremarkable. No hydrocephalus. CALVARIUM: Unremarkable. PARANASAL SINUSES: Unremarkable as visualized. No significant inflammatory changes. MASTOID AIR CELLS: Unremarkable as visualized. No inflammatory changes. OTHER FINDINGS: None. IMPRESSION: No acute intracranial abnormalities. No significant findings to account for the clinical presentation. Concordant results (preliminary interpretation) provided by [facility]. Procedure Completed: 20:56. Preliminary Report: Dictated and Authenticated: 19:31. Final Interpretation: 10:42. January 17, 2018
--- NOTE | 2018-01-17 11:31 | RAD ---
Date of service: 01/16/2018 HISTORY: Code Stroke COMPARISON: 08/07/2014. FINDINGS: LUNGS: No active pulmonary disease. PLEURA: No significant pleural effusion identified, no pneumothorax apparent. CARDIOVASCULAR: Atherosclerotic calcifications identified primarily aortic arch. No radiographic findings to suggest acute or significant cardiovascular disease. OSSEOUS STRUCTURES: No significant abnormalities. VISUALIZED UPPER ABDOMEN: Normal. OTHER FINDINGS: None. IMPRESSION: No active disease. No significant interval change compared to the prior examination(s).
--- NOTE | 2018-01-17 12:41 | CT ---
Date of service: 01/16/2018 PROCEDURE: CT Angiography of the Brain and Neck. HISTORY: code [id number] COMPARISON: None available. TECHNIQUE: CT angiography of the head and neck was performed following intravenous contrast administration. Coronal and sagittal maximum intensity projection reformatted images were generated. Contrast Dose: Omnipaque 350, 144 cc Radiation dose: Total exam DLP = 483.07 mGy-cm. This CT exam was performed using one or more of the following dose reduction techniques: Automated exposure control, adjustment of the mA and/or kV according to patient size, and/or use of iterative reconstruction technique. FINDINGS: INTERNAL CEREBRAL ARTERIES: Limited atherosclerotic changes seen at the bilateral cavernous internal carotid artery segments without significant stenosis resulting. The skull base, petrous, and supraclinoid segments are bilaterally widely patent. ANTERIOR CEREBRAL ARTERIES: Unremarkable. A1 and A2 segments are widely patent. Smaller distal branches unremarkable, as visualized. MIDDLE CEREBRAL ARTERIES: Unremarkable. M1 and M2 segments are widely patent. Perisylvian branches grossly symmetric. POSTERIOR CIRCULATION: Basilar Artery: Unremarkable. Distal Vertebral Arteries: Unremarkable. Posterior Cerebral Arteries: Unremarkable. Posterior Inferior Cerebellar Arteries: Unremarkable. NECK CTA: Common Carotid arteries: The bilateral common carotid appear widely patent from their origins to their bifurcations with no significant stenosis appreciated. Trace bilateral carotid bulbar atherosclerotic plaque. No evidence to suggest common carotid artery dissection. Internal Carotid arteries: No significant stenosis is appreciated throughout the cervical internal carotid artery segments bilaterally and there is no evidence of dissection either. External Carotid arteries: Appear unremarkable bilaterally. Vertebral arteries: The bilateral vertebral arteries appear normal in caliber from their origins to their distal cervical segments. No significant stenosis or definite pattern of dissection. ANEURYSM/ VASCULAR MALFORMATIONS: None. OTHER FINDINGS: Bilateral heterogeneous enhancing thyroid nodules. Follow-up thyroid ultrasound recommended. In addition, at least 2 sub cm noncalcified nodule at the left apex for which follow-up chest is recommended in 12 months demonstrate stability using low-dose CT noncontrast technique. IMPRESSION: No significant stenosis in CT angiography of the brain and neck. Trace atherosclerotic changes seen at the bilateral carotid bulb regions as well as cavernous internal carotid arteries bilaterally. Left apical pulmonary nodules for which follow-up chest is recommended 12 months demonstrate stability. LungRads 2 Bilateral thyroid nodules which follow-up ultrasound is recommended for added characterization. Concordant preliminary report from [facility], 01/16/2018, 8:23 p.m..
[2018-01-17 13:10] LABS: FOLATE 14.8 ng/mL
--- NOTE | 2018-01-17 13:18 | CON ---
DATE: 01/17/2018 REASON FOR CONSULTATION: Cardiac evaluation, admitted with stroke. BRIEF CLINICAL HISTORY: This is an 87-year-old female with past medical history of hypertension, hyperlipidemia, presented to the emergency room with left-sided weakness and slurring of speech and right-sided facial droop. The weakness improved and the patient did not get tPA, thought to be not a candidate at that time. Admitting CAT scan of the head was negative for bleed. Going today for brain MRI. PAST MEDICAL HISTORY: Significant for hypertension, hyperlipidemia, chronic leg edema, and anxiety disorder. PAST SURGICAL HISTORY: Significant for bilateral knee replacement many years ago, history of cholecystectomy. ALLERGIES: NO KNOWN DRUG ALLERGIES. SOCIAL HISTORY: Denies smoking. Denies any history of alcohol abuse. CURRENT MEDICATIONS: The patient was on vitamin D3, sertraline, metoprolol succinate, gemfibrozil, Zetia, clopidogrel, aspirin, and ascorbic acid. PREVIOUS CARDIAC WORKUP: As follows, the patient had coronary artery disease, status post PTCA of the RCA on 05/21/2014 here at [facility] after having an abnormal stress test. Cardiac catheterization revealed LAD 50% stenosis, RCA with 80% stenosis which was stented, EDP in the range of 15, ejection fraction preserved 55%-60%. The patient had a drug-eluting stent of the RCA dated 05/21/2014. The patient had a followup stress test done multiple times. Most recent stress test dated 12/15/2016, normal myocardial perfusion study, ejection fraction 64%. When compared from 08/08/2014, there is no significant change. The patient had last echocardiography done in the hospital, ejection fraction of 65%, trace mitral regurgitation, trace tricuspid regurgitation dated 08/08/2014. EKG showed normal sinus, left axis deviation, non-specific ST-T changes. PHYSICAL EXAMINATION VITAL SIGNS: Height of the patient 5 feet 8 inches, weight of the patient 175 pounds, body mass index 27 kg/m2. Rest of the vitals; temperature afebrile, heart rate 62, blood pressure 202/97. HEENT: PERRLA intact. NECK: Supple. No carotid bruit or thyromegaly. CHEST: Clear to auscultation. HEART: S1, S2, regular. ABDOMEN: Soft. EXTREMITIES: Clubbing and cyanosis, negative. LABORATORY DATA: Blood workup as follows; WBC 8.6, hemoglobin , hematocrit 29.8, platelet count 277. Chemistry shows sodium 140, potassium 3.9, chloride 112, carbon dioxide 20, anion gap of 10, BUN 19, creatinine 1.1. Troponin 0.05, 0.05. DIAGNOSTIC DATA: EKG showed normal sinus, left axis deviation, nonspecific ST-T changes, LVH. IMPRESSION AND PLAN: An 87-year-old female with a past medical history significant for coronary artery disease, status post percutaneous transluminal coronary angioplasty in 2014 of right coronary artery with a drug-eluting stent, preserved left ventricular function, admitted with left-sided weakness, right facial droop. Initial plan was not to give the tissue plasminogen activator because the symptoms resolved and the patient is being managed medically. Currently, on baby aspirin last night. The patient's blood pressure is still elevated. We will get echo to assess left ventricular function, lipid profile, TSH, hemoglobin A1c, and since the patient is being started for swallowing evaluation, then after that we will restart some oral medications and get echo to assess left ventricular function. We will get TSH also and hemoglobin A1c. We will put Cozaar 100 mg daily. I will put a low dose of metoprolol and put hydralazine as needed for systolic more than 170. Thank you [address] Perze for providing us the opportunity in taking care of the patient, Adelita Galindo. Boaz Kent MD
[2018-01-17 14:27] LABS: FERRITIN 48.6 ng/mL
--- NOTE | 2018-01-17 14:31 | CP.PCM.APN ---
Subjective - Date & Time of Evaluation Date of Evaluation: 01/17/18 Time of Evaluation: 13:00 - Subjective Subjective: pt seen and examined at bedside in ICU after presenting with code stroke pt is awake reports gen weakness Review of Systems - Constitutional Constitutional: Fatigue, Weakness Objective - Vital Signs/Intake and Output Vital Signs (last 24 hours): Temp Pulse Resp BP Pulse Ox 97.8 F 67 15 148/74 96 01/17/18 11:24 01/17/18 12:15 01/17/18 12:15 01/17/18 12:15 01/17/18 12:15 Intake and Output: 01/17/18 01/17/18 06:59 18:59 Intake Total 875 Output Total 600 Balance 275 - Medications Medications: Current Medications Ascorbic Acid (Vitamin C 500 Mg Tab) 500 mg PO DAILY [facility] Last Admin: 01/17/18 10:00 Dose: Not Given Aspirin (Aspirin Supp) 300 mg RC DAILY [facility] Last Admin: 01/17/18 11:24 Dose: 300 mg Clopidogrel Bisulfate (Plavix) 75 mg PO DAILY [facility] Ezetimibe (Zetia) 10 mg PO DAILY [facility] Famotidine (Pepcid) 20 mg IVP DAILY [facility] Last Admin: 01/17/18 09:52 Dose: 20 mg Gemfibrozil (Lopid) 600 mg PO DAILY [facility] Hydralazine HCl (Apresoline) 10 mg IVP Q6 PRN PRN Reason: FOR SBP>160 Losartan Potassium (Cozaar) 100 mg PO DAILY [facility] Metoprolol Tartrate (Lopressor) 25 mg PO BID [facility] Pantoprazole Sodium (Protonix Ec Tab) 40 mg PO DAILY [facility] Last Admin: 01/17/18 10:00 Dose: Not Given Sertraline HCl (Zoloft) 50 mg PO DAILY [facility] - Labs Labs: 01/17/18 05:40 01/17/18 05:40 PT 12.2 SECONDS (9.4-12.5) 01/16/18 18:50 INR 1.07 01/16/18 18:50 APTT 27.4 Seconds (25.1-36.5) 01/16/18 18:50 - Constitutional Appears: Non-toxic, In Acute Distress - Head Exam Head Exam: NORMAL INSPECTION, NORMOCEPHALIC - Eye Exam Eye Exam: PERRL - ENT Exam Additional comments: left facial droop - Respiratory Exam Respiratory Exam: Clear to Ausculation Bilateral - GI/Abdominal Exam GI & Abdominal Exam: Normal Bowel Sounds - Neurological Exam Neuro motor strength exam: Left Upper Extremity: 3, Right Upper Extremity: 5, Left Lower Extremity: 3, Right Lower Extremity: 5 - Psychiatric Exam Psychiatric exam: Normal Affect (left facial droop noted ) Assessment and Plan - Assessment and Plan (Free Text) Plan: head ct- no acute findings mri brain - acute subacute infarct at the right basal ganglia small chronic infarct parietal lobe laterally cxr- no active dx Pt is a 87 yr old female with pmh sig for htn, hld, cad with rca stent in 2015, anemia, chronic back pain, anxiety, bilateral knee replacement who was found altered and mumbling by her family, slurred speech and lef and subsequently taken to there where a code stroke was called and pt is now undergoing neuro eval and cardiology eval in progress echo , speech lang eval and p.t pending will follow clinical course sandhya Ortiz
--- NOTE | 2018-01-17 14:31 | MRI ---
Date of service: 01/17/2018 PROCEDURE: MRI BRAIN WITHOUT CONTRAST HISTORY: r/o stroke COMPARISON: None available. TECHNIQUE: Multiplanar, multisequence MR images of the brain were obtained without intravenous contrast enhancement. FINDINGS: HEMORRHAGE: None DWI: Without significant mass effect appreciated. No additional brain infarction on acute subacute timeframe. BRAIN PARENCHYMA: Good corticomedullary differentiation is seen. A small chronic infarcts in the right parietal lobe laterally. Reiterated diffuse cerebral atrophy and chronic microangiopathy. Chronic microangiopathy also identified at the anthony symmetrically. No suspicious extra-axial fluid collection is identified and the midline brain anatomy appears grossly nonfocal as imaged. No mass effect identified. VENTRICLES: Unremarkable. No hydrocephalus. CRANIUM: Unremarkable. ORBITS: Grossly unremarkable. PARANASAL SINUSES/MASTOIDS: Clear VASCULAR SYSTEM: Skull base flow voids intact. OTHER FINDINGS: None. IMPRESSION: 1. Acute subacute infarction at the right basal ganglia is identified. 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 No mass effect throughout. 2. Age-related neuro degenerative findings reiterated.
--- NOTE | 2018-01-17 14:53 | CP.PCM.CON ---
History of Present Illness - History of Present Illness History of Present Illness: Neurology Consult Note for Dr. Guerra Reason for Consultation: CVA Patient is an 87 yo with PMH of HTN, HLD, chronic LE pain, and anxiety presents to [facility] due to AMS, facial droop, and dysarthria. Patient was seen in the ED within the window for tPA. Dr. Guerra was contacted and the decision was made to administered tPA. However, prior to CT her NIHSS was 14, after the CT it was 6. Due to her rapid improvement, tPA was held. Patient admits to fatigue, but states strength is improving. Patient offers no other complaints at this time; d enies CP, SOB, n/v/d, abdominal pain, fever, chills, CH, or dizziness. PMH: hypertension, hyperlipidemia, chronic lower extremity pain, anxiety Surg: bilateral knee replacements-cannot recall years completed, cholecystecomy- unsure of year completed All: NKDA SH: denies ETOH use, denies tobacco use, denies illicit drug use FHx: Non-contributory Review of Systems - Review of Systems All systems: reviewed and no additional remarkable complaints except (12 point ROS reivewed and is negative other than what is stated in HPI.) Past Patient History - Tetanus Immunizations Tetanus Immunization: Unknown - Past Social History Smoking Status: Never Smoked - CARDIAC Hx Cardiac Disorders: Yes Hx Hypertension: Yes - PULMONARY Hx Respiratory Disorders: No - NEUROLOGICAL Hx Neurological Disorder: No - HEENT Hx HEENT Problems: No - RENAL Hx Chronic Kidney Disease: No - ENDOCRINE/METABOLIC Hx Endocrine Disorders: No - HEMATOLOGICAL/ONCOLOGICAL Hx Anemia: Yes - INTEGUMENTARY Hx Dermatological Problems: No - MUSCULOSKELETAL/RHEUMATOLOGICAL Hx Arthritis: Yes - GASTROINTESTINAL Hx Gastroesophageal Reflux: Yes - GENITOURINARY/GYNECOLOGICAL Hx Genitourinary Disorders: No - PSYCHIATRIC Hx Depression: Yes Hx Emotional Abuse: No Hx Physical Abuse: No - SURGICAL HISTORY Hx Cardiac Catheterization: Yes (2014) Hx Hysterectomy: Yes Hx Orthopedic Surgery: Yes (knee replacement) - ANESTHESIA Hx Anesthesia: Yes Hx Anesthesia Reactions: No Hx Malignant Hyperthermia: No Meds Allergies/Adverse Reactions: Allergies Allergy/AdvReac Type Severity Reaction Status Date / Time codeine Allergy ANAPHYLAXIS Verified 01/11/18 13:15 - Medications Medications: Current Medications Ascorbic Acid (Vitamin C 500 Mg Tab) 500 mg PO DAILY [facility] Last Admin: 01/17/18 10:00 Dose: Not Given Aspirin (Aspirin Supp) 300 mg RC DAILY [facility] Last Admin: 01/17/18 11:24 Dose: 300 mg Clopidogrel Bisulfate (Plavix) 75 mg PO DAILY [facility] Ezetimibe (Zetia) 10 mg PO DAILY [facility] Last Admin: 01/17/18 14:37 Dose: 10 mg Gemfibrozil (Lopid) 600 mg PO DAILY [facility] Last Admin: 01/17/18 14:42 Dose: 600 mg Hydralazine HCl (Apresoline) 10 mg IVP Q6 PRN PRN Reason: FOR SBP>160 Losartan Potassium (Cozaar) 100 mg PO DAILY [facility] Last Admin: 01/17/18 14:42 Dose: 100 mg Metoprolol Tartrate (Lopressor) 25 mg PO BID [facility] Last Admin: 01/17/18 10:00 Dose: Not Given Pantoprazole Sodium (Protonix Ec Tab) 40 mg PO DAILY [facility] Last Admin: 01/17/18 10:00 Dose: Not Given Sertraline HCl (Zoloft) 50 mg PO DAILY [facility] Last Admin: 01/17/18 14:41 Dose: 50 mg Physical Exam - Constitutional Appears: No Acute Distress - Head Exam Head Exam: NORMAL INSPECTION - Eye Exam Eye Exam: Normal appearance - ENT Exam ENT Exam: Mucous Membranes Moist, Normal Exam - Neck Exam Neck exam: Positive for: Normal Inspection - Respiratory Exam Respiratory Exam: Clear to Auscultation Bilateral, NORMAL BREATHING PATTERN - Cardiovascular Exam Cardiovascular Exam: REGULAR RHYTHM - GI/Abdominal Exam GI & Abdominal Exam: Normal Bowel Sounds, Soft - Extremities Exam Extremities exam: Positive for: normal inspection - Back Exam Back exam: NORMAL INSPECTION - Neurological Exam Neurological exam: Alert, CN II-XII Intact, Oriented x3 Additional comments: Left sided facial droop Mild dysarthria LUE strength 5/5, RUE 4/5 LLE strength 5/5, RLE 4/5 Sensation grossly intact Left pronator drift Spatial orientation intact Frontal/cognition intact - Psychiatric Exam Psychiatric exam: Normal Affect - Skin Skin Exam: Normal Color Results - Vital Signs Recent Vital Signs: Last Vital Signs Temp 97.8 F 01/17/18 11:24 Pulse 67 01/17/18 12:15 Resp 15 01/17/18 12:15 BP 148/74 01/17/18 12:15 Pulse Ox 96 01/17/18 12:15 - Labs Result Diagrams: 01/17/18 05:40 01/17/18 05:40 Labs: Laboratory Results - last 24 hr 01/16/18 01/16/18 01/16/18 18:45 18:50 18:50 WBC 7.6 RBC 3.66 Hgb 10.6 L Hct 33.4 L MCV 91.3 MCH 29.0 MCHC 31.7 RDW 14.3 Plt Count 337 MPV 9.1 Gran % 61.7 Lymph % (Auto) 27.2 [place] % (Auto) 7.4 H Eos % (Auto) 3.3 Baso % (Auto) 0.4 Gran # 4.70 Lymph # (Auto) 2.1 [place] # (Auto) 0.6 Eos # (Auto) 0.3 Baso # (Auto) 0.03 PT 12.2 INR 1.07 APTT 27.4 Sodium Potassium Chloride Carbon Dioxide Anion Gap BUN Creatinine Est GFR ( Amer) Est GFR (Non-Af Amer) Random Glucose Hemoglobin A1c Calcium Phosphorus Magnesium Iron TIBC % Saturation Ferritin Total Bilirubin AST ALT Alkaline Phosphatase Troponin I Total Protein Albumin Globulin Albumin/Globulin Ratio Triglycerides Cholesterol LDL Cholesterol Direct HDL Cholesterol Vitamin B12 Folate TSH 3rd Generation Urine Color Urine Appearance Urine pH Ur Specific [place] Urine Protein Urine Glucose (UA) Urine Ketones Urine Blood Urine Nitrate Urine Bilirubin Urine Urobilinogen Ur Leukocyte Esterase Urine RBC Urine WBC Ur Epithelial Cells Urine Bacteria Blood Type Blood Type Confirm O POSITIVE Antibody Screen BBK History Checked 01/16/18 01/16/18 01/16/18 18:50 18:50 19:00 WBC RBC Hgb Hct MCV MCH MCHC RDW Plt Count MPV Gran % Lymph % (Auto) [place] % (Auto) Eos % (Auto) Baso % (Auto) Gran # Lymph # (Auto) [place] # (Auto) Eos # (Auto) Baso # (Auto) PT INR APTT Sodium 139 Potassium 3.8 Chloride 108 H Carbon Dioxide 23 Anion Gap 12 BUN 24 H Creatinine 1.2 Est GFR ( Amer) 51 Est GFR (Non-Af Amer) 42 Random Glucose 148 H Hemoglobin A1c 6.0 Calcium 10.2 Phosphorus Magnesium Iron TIBC % Saturation Ferritin Total Bilirubin 0.3 AST 34 ALT 26 Alkaline Phosphatase 156 H Troponin I 0.05 D Total Protein 7.6 Albumin 4.2 Globulin 3.3 Albumin/Globulin Ratio 1.3 Triglycerides 268 H Cholesterol 194 LDL Cholesterol Direct 54 HDL Cholesterol 39 Vitamin B12 Folate TSH 3rd Generation Urine Color Urine Appearance Urine pH Ur Specific [place] Urine Protein Urine Glucose (UA) Urine Ketones Urine Blood Urine Nitrate Urine Bilirubin Urine Urobilinogen Ur Leukocyte Esterase Urine RBC Urine WBC Ur Epithelial Cells Urine Bacteria Blood Type O POSITIVE Blood Type Confirm Antibody Screen Negative BBK History Checked No verified bt 01/16/18 01/16/18 01/16/18 19:00 19:00 22:50 WBC RBC Hgb Hct MCV MCH MCHC RDW Plt Count MPV Gran % Lymph % (Auto) [place] % (Auto) Eos % (Auto) Baso % (Auto) Gran # Lymph # (Auto) [place] # (Auto) Eos # (Auto) Baso # (Auto) PT INR APTT Sodium Potassium Chloride Carbon Dioxide Anion Gap BUN Creatinine Est GFR ( Amer) Est GFR (Non-Af Amer) Random Glucose Hemoglobin A1c Calcium Phosphorus Magnesium Iron TIBC % Saturation Ferritin Total Bilirubin AST ALT Alkaline Phosphatase Troponin I Total Protein Albumin Globulin Albumin/Globulin Ratio Triglycerides Cholesterol LDL Cholesterol Direct HDL Cholesterol Vitamin B12 903 Folate TSH 3rd Generation 0.90 Urine Color Yellow Urine Appearance Clear Urine pH 6.0 Ur Specific [place] 1.015 Urine Protein Negative Urine Glucose (UA) Negative Urine Ketones Negative Urine Blood Trace-intact H Urine Nitrate Negative Urine Bilirubin Negative Urine Urobilinogen 0.2 Ur Leukocyte Esterase Negative Urine RBC 0 - 2 Urine WBC 0 - 2 Ur Epithelial Cells 0 - 2 Urine Bacteria Small Blood Type Blood Type Confirm Antibody Screen BBK History Checked 01/16/18 01/16/18 01/17/18 23:11 23:11 01:03 WBC RBC Hgb Hct MCV MCH MCHC RDW Plt Count MPV Gran % Lymph % (Auto) [place] % (Auto) Eos % (Auto) Baso % (Auto) Gran # Lymph # (Auto) [place] # (Auto) Eos # (Auto) Baso # (Auto) PT INR APTT Sodium Potassium Chloride Carbon Dioxide Anion Gap BUN Creatinine Est GFR ( Amer) Est GFR (Non-Af Amer) Random Glucose Hemoglobin A1c Calcium Phosphorus Magnesium Iron 80 TIBC 365 % Saturation 22 Ferritin 48.6 Total Bilirubin AST ALT Alkaline Phosphatase Troponin I 0.05 Total Protein Albumin Globulin Albumin/Globulin Ratio Triglycerides Cholesterol LDL Cholesterol Direct HDL Cholesterol Vitamin B12 Folate 14.8 TSH 3rd Generation Urine Color Urine Appearance Urine pH Ur Specific [place] Urine Protein Urine Glucose (UA) Urine Ketones Urine Blood Urine Nitrate Urine Bilirubin Urine Urobilinogen Ur Leukocyte Esterase Urine RBC Urine WBC Ur Epithelial Cells Urine Bacteria Blood Type Blood Type Confirm Antibody Screen BBK History Checked 01/17/18 01/17/18 05:40 05:40 WBC 8.6 RBC 3.29 L Hgb 9.7 L Hct 29.8 L MCV 90.6 MCH 29.5 MCHC 32.6 RDW 14.4 Plt Count 277 MPV 9.0 Gran % 65.9 Lymph % (Auto) 24.1 [place] % (Auto) 6.4 H Eos % (Auto) 3.2 Baso % (Auto) 0.4 Gran # 5.64 Lymph # (Auto) 2.1 [place] # (Auto) 0.6 Eos # (Auto) 0.3 Baso # (Auto) 0.03 PT INR APTT Sodium 140 Potassium 3.9 Chloride 112 H Carbon Dioxide 22 Anion Gap 10 BUN 19 Creatinine 1.1 Est GFR ( Amer) 57 Est GFR (Non-Af Amer) 47 Random Glucose 102 Hemoglobin A1c Calcium 9.6 Phosphorus 3.1 Magnesium 1.9 Iron TIBC % Saturation Ferritin Total Bilirubin 0.2 AST 26 ALT 32 Alkaline Phosphatase 133 H Troponin I 0.05 Total Protein 6.5 Albumin 3.5 Globulin 3.0 Albumin/Globulin Ratio 1.2 Triglycerides Cholesterol LDL Cholesterol Direct HDL Cholesterol Vitamin B12 Folate TSH 3rd Generation Urine Color Urine Appearance Urine pH Ur Specific [place] Urine Protein Urine Glucose (UA) Urine Ketones Urine Blood Urine Nitrate Urine Bilirubin Urine Urobilinogen Ur Leukocyte Esterase Urine RBC Urine WBC Ur Epithelial Cells Urine Bacteria Blood Type Blood Type Confirm Antibody Screen BBK History Checked Assessment & Plan - Assessment and Plan (Free Text) Assessment: 87 yo F with PMH of HTN, HLD, chornic LE pain, anxiety presents to [facility] for AMS, dysarthria, and facial droop was found to have acute/subacute infarction at the right basal ganglia with a very small chronic infarct in the right parietal lobe on brain MRI. Plan: - CTA head/neck shows mild atherosclerotic disease in the left and right carotid artery - Permissive HTN for first 24 hrs; tx if BP > 220/120 - Cont ASA and Plavix - Neurochecks - PT/OT Patient seen and discussed in detail with Dr. Guerra. Berto Maxwell, DO PGY2
--- NOTE | 2018-01-17 16:00 | CP.PCM.PN ---
<Maco Lynne - Last Filed: 01/17/18 15:57> Subjective - Date & Time of Evaluation Date of Evaluation: 01/17/18 Time of Evaluation: 15:57 - Subjective Subjective: Maco Lynne, Internal Medicine Progress Note for Dr. Arnold Patient seen and evaluated at bedside. Patient had no acute overnight events. This morning, patient had reported some left sided facial droop and left sided upper and lower extremity weakness. Patient was AAOx3. Patient denied any dysarthria, dysphagia, headache, chest pain, shortness of breath, nausea, vomiting, constipation, dysuria, and hematuria. 12-point ROS was negative except for what was mentioned above. Objective - Vital Signs/Intake and Output Vital Signs (last 24 hours): Temp Pulse Resp BP Pulse Ox 97.8 F 67 15 148/74 96 01/17/18 11:24 01/17/18 14:00 01/17/18 12:15 01/17/18 12:15 01/17/18 12:15 Intake and Output: 01/17/18 01/17/18 06:59 18:59 Intake Total 875 Output Total 600 Balance 275 - Medications Medications: Current Medications Ascorbic Acid (Vitamin C 500 Mg Tab) 500 mg PO DAILY [facility] Last Admin: 01/17/18 10:00 Dose: Not Given Aspirin (Ecotrin) 81 mg PO DAILY [facility] Clopidogrel Bisulfate (Plavix) 75 mg PO DAILY [facility] Ezetimibe (Zetia) 10 mg PO DAILY [facility] Last Admin: 01/17/18 14:37 Dose: 10 mg Gemfibrozil (Lopid) 600 mg PO DAILY [facility] Last Admin: 01/17/18 14:42 Dose: 600 mg Hydralazine HCl (Apresoline) 10 mg IVP Q6 PRN PRN Reason: FOR SBP>160 Losartan Potassium (Cozaar) 100 mg PO DAILY [facility] Last Admin: 01/17/18 14:42 Dose: 100 mg Metoprolol Tartrate (Lopressor) 25 mg PO BID [facility] Last Admin: 01/17/18 10:00 Dose: Not Given Pantoprazole Sodium (Protonix Ec Tab) 40 mg PO DAILY [facility] Last Admin: 01/17/18 10:00 Dose: Not Given Sertraline HCl (Zoloft) 50 mg PO DAILY [facility] Last Admin: 01/17/18 14:41 Dose: 50 mg - Labs Labs: 01/17/18 05:40 01/17/18 05:40 PT 12.2 SECONDS (9.4-12.5) 01/16/18 18:50 INR 1.07 01/16/18 18:50 APTT 27.4 Seconds (25.1-36.5) 01/16/18 18:50 - Constitutional Appears: Well, Non-toxic, No Acute Distress - Head Exam Head Exam: ATRAUMATIC, NORMAL INSPECTION, NORMOCEPHALIC - Eye Exam Eye Exam: EOMI Additional comments: unreactive pupils - Respiratory Exam Respiratory Exam: Clear to Ausculation Bilateral, NORMAL BREATHING PATTERN - Cardiovascular Exam Cardiovascular Exam: REGULAR RHYTHM - GI/Abdominal Exam GI & Abdominal Exam: Soft, Normal Bowel Sounds. absent: Tenderness - Neurological Exam Neuro motor strength exam: Left Upper Extremity: 4, Right Upper Extremity: 5, Left Lower Extremity: 3, Right Lower Extremity: 5 Assessment and Plan - Assessment and Plan (Free Text) Assessment: 87 year old female with past medical history of hypertension, hyperlipidemia, anemia, CAD with RCA stent in 2014, chronic lower extremity pain, and anxiety presented with altered mental status, facial droop, and slurred speech. Patient was last seen normal at 18:00 and brought to [facility] by EMS. Head CT showed no acute intracranial abnormalities. No significant findings to account for clinical presentation. CTA showed no significant stenosis of the brain and neck. Trace atherosclerotic changes were seen at the bilateral carotic bulb regions as well as cavernous internal carotid arteries bilaterally. Left apical pulmonary nodules were seen. Bilateral thyroid nodules were found. Plan: Slurred speech and Facial Droop likely 2/2 to Acute Ischemic Stroke vs. TIA -Patient initially presented with an NIHSS stroke scale of 6. -Head CT showed no acute intracranial abnormalities. No significant findings to account for clinical presentation. -Head and neck CTA showed no significant stenosis of the brain and neck. Trace atherosclerotic changes were seen at the bilateral carotic bulb regions as well as cavernous internal carotid arteries bilaterally. 4 mm left apical pulmonary nodules were seen. Bilateral thyroid nodules were found. -MRI Head results: acute infarction at the right basal ganglia is identified. 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 No mass effect; age related degenerative findings -Follow up echocardiogram with bubble study results -Negative troponinsx3 -EKG: NSR with left axis deviation and nonspecific ST and T wave abnormality. HR: 84, QRS: 78, QTc: 423 -Lipid panel: unremarkable except for TG of 268 -Neuro checks Q1 -Vital signs Q15 minutes -Swallow and speech evaluation concluded that patient has mild oral dysphagia; mild stasis post swallow of dry solids. L sided facial weakness that does not significantly affect eating or swallowing. Mild dysarthria, but speech is intelligible. Recommendations includ soft regular consistency diet with thin liquids -Aspiration precautions -Fall precautions -Heart healthy diet -Aggressive physical therapy and occupational therapy -TPa not given -Aspirin 81 mg and plavix 75 mg PO daily Left Upper Lobe Lung Mass -4mm mass seen on Head and Neck CTA -Follow up outpatient CT Incidental Thyroid Nodule -Thyroid Nodule seen on Head and Neck CTA -TSH: 0.9 -Follow up T3 and T4 -Follow up with outpatient thyroid ultrasound. Normocytic Anemia -Hgb: 9.7 -Iron: 80 -TIBC: 365 -Ferritin: 48.6 -Folate: 14.8 -Consider ordering peripheral blood smear. Hypertension -Systolic blood pressures ranging from 158-207 -HR: 67 -Continue with cozaar, lopressor, apresoline Hyperlipidemia -Lipid panel: unremarkable except for TG of 268 -Continue with lopid, zetia. Elevated alkaline phosphatase -ALP: 158 -Continue to monitor History of General Anxiety Disorder -Continue home sertraline GI prophylaxis: prootnix 40 mg daily DVT prophylaxis: SCDs Patient seen and evaluated with Dr. Arnold. <Jefe Arnold - Last Filed: 01/18/18 15:17> Objective - Vital Signs/Intake and Output Vital Signs (last 24 hours): Temp Pulse Resp BP Pulse Ox 98.6 F 71 18 170/85 H 97 01/17/18 19:00 01/18/18 05:47 01/17/18 17:47 01/18/18 10:17 01/17/18 17:15 - Medications Medications: Current Medications Amlodipine Besylate (Norvasc) 10 mg PO DAILY [facility] Last Admin: 01/18/18 10:17 Dose: 10 mg Ascorbic Acid (Vitamin C 500 Mg Tab) 500 mg PO DAILY [facility] Last Admin: 01/18/18 10:18 Dose: 500 mg Aspirin (Ecotrin) 81 mg PO DAILY [facility] Last Admin: 01/18/18 10:15 Dose: 81 mg Clopidogrel Bisulfate (Plavix) 75 mg PO DAILY [facility] Ezetimibe (Zetia) 10 mg PO DAILY [facility] Last Admin: 01/18/18 10:18 Dose: 10 mg Gemfibrozil (Lopid) 600 mg PO DAILY [facility] Last Admin: 01/18/18 10:15 Dose: 600 mg Hydralazine HCl (Apresoline) 10 mg IVP Q6 PRN PRN Reason: FOR SBP>160 Last Admin: 01/18/18 05:47 Dose: 10 mg Losartan Potassium (Cozaar) 100 mg PO DAILY [facility] Last Admin: 01/18/18 10:14 Dose: 100 mg Metoprolol Tartrate (Lopressor) 100 mg PO BID [facility] Pantoprazole Sodium (Protonix Ec Tab) 40 mg PO DAILY [facility] Last Admin: 01/18/18 10:17 Dose: 40 mg Sertraline HCl (Zoloft) 50 mg PO DAILY [facility] Last Admin: 01/18/18 10:19 Dose: 50 mg - Labs Labs: 01/18/18 05:20 01/18/18 05:20 PT 12.2 SECONDS (9.4-12.5) 01/16/18 18:50 INR 1.07 01/16/18 18:50 APTT 27.4 Seconds (25.1-36.5) 01/16/18 18:50 Attending/Attestation - Attestation I have personally seen and examined this patient.: Yes I have fully participated in the care of the patient.: Yes I have reviewed all pertinent clinical information, including history, physical exam and plan: Yes Notes (Text): 87 y/o F with PMH as above here as a code stroke with left facial droop and left sided weakness. CT head was negative. CTA showed no significant stenosis of the brain and neck. MRI showed acute infarction at the right basal ganglia is identified. 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 Neurology on board c/w ASA, statin and plavix will f/u echo findings Aggressive PT Pt was also noted to have a 4mm mass on her left upper lobe and also a thyroid nodule, pt will need outpatient follow up. 01/18/18 15:02
--- NOTE | 2018-01-17 20:16 | CARD ---
APPROVED REPORT Date of service: 01/17/2018 EXAM: Two-dimensional and M-mode echocardiogram with Doppler and color Doppler. INDICATION ACUTE CVA..BUBBLE STUDY..R/O PFO 2D DIMENSIONS Left Atrium (2D)3.5 (1.6-4.0cm)IVSd1.2 (0.7-1.1cm) LVDd4.0 (3.9-5.9cm)PWd1.1 (0.7-1.1cm) LVDs2.9 (2.5-4.0cm)FS (%) 25.8 % LVEF (%)51.2 (>50%) M-Mode DIMENSIONS Aortic Root3.00 (2.2-3.7cm)Aortic Cusp Exc.1.40 (1.5-2.0cm) Aortic Valve AoV Peak Ybkzclgd166.0cm/Belinda Peak GR.13mmHg Mitral Valve MV E Qlhtyirk45.6cm/sMV A Eynsnrfc915.0cm/sE/A ratio0.6 TDI Lateral E' Peak V6.92cm/sMedial E' Peak V3.70cm/sE/Lateral E'9.9 E/Medial E'18.5 Pulmonary Valve PV Peak Fdnqoldi65.8cm/sPV Peak Grad.3mmHg Tricuspid Valve TR Peak [id number]/sRAP [id number] Peak Gr.21mmHg [id number] LEFT VENTRICLE The left ventricle is normal size. There is borderline concentric left ventricular hypertrophy. Proximal septal thickening is noted. low normal. EF-50% There is mild hypokinesis in the apical anterior wall. Transmitral Doppler flow pattern is Grade III-reversible restrictive diastolic dysfunction. No left ventricle thrombus noted on this study. There is no ventricular septal defect visualized. There is no left ventricular aneurysm. There is no mass noted in the left ventricle. RIGHT VENTRICLE The right ventricle is normal size. There is normal right ventricular wall thickness. The right ventricular systolic function is normal. ATRIA The left atrium size is normal. The right atrium size is normal. The interatrial septum is intact with no evidence for an atrial septal defect by color flow and bubble study. AORTIC VALVE The aortic valve is thickened but opens well. The aortic valve is mildly to moderately sclerotic. No aortic regurgitation is present. There is no aortic valvular stenosis. There is no aortic valvular vegetation. MITRAL VALVE The mitral valve is thickened but opens well. Mitral regurgitation is trace. There is no mitral valve stenosis. There is no evidence of mitral valve prolapse. TRICUSPID VALVE The tricuspid valve leaflets are thickened , but open well. There is trace tricuspid regurgitation.RVSP-31 mmof Hg. There is no tricuspid valve stenosis. There is no tricuspid valve prolapse or vegetation. PULMONIC VALVE The pulmonic valve is borderline thickened. There is trace pulmonic valvular regurgitation. There is no pulmonic valvular stenosis. GREAT VESSELS The aortic root is normal in size. The ascending aorta is normal in size. The pulmonary artery is normal. The IVC is normal in size and collapses >50% with inspiration. PERICARDIAL EFFUSION There is no pleural effusion. trace pericardial effusion. <Conclusion> Normal Chamber Size. EF_50%. Trace MR/TR RVSP-31 mmof Hg. no thrombus or vegetation noted. The interatrial septum is intact with no evidence for an atrial septal defect by color flow and bubble study.
[2018-01-18 06:50] LABS: BASO # 0.04 K/mm3 (0.0-2.0); BASO % 0.4 % (0.0-3.0); EOS # 0.4 (0.0-0.7); EOS % 4.1 % (1.5-5.0); GRAN # 6.25 (1.4-6.5); HEMOGLOBIN 10.2 g/dL (12.0-16.0); LYMPH # 1.9 (1.2-3.4); LYMPH % 20.8 % (22.0-35.0); MEAN CELL VOLUME 89.6 fl (80.0-105.0); MEAN CORPUSCULAR HEMOGLOBIN 28.7 pg (25.0-35.0); MEAN CORPUSCULAR HGB CONC 32.1 g/dl (31.0-37.0); MEAN PLATELET VOLUME 9.3 fl (7.0-11.0); MONO # 0.6 (0.1-0.6); MONO % 6.7 % (1.0-6.0); RBC 3.55 10^6/uL (3.5-6.1); RED CELL DISTRIBUTION WIDTH 14.3 % (11.5-14.5); WHITE BLOOD COUNT 9.2 10^3/uL (4.5-11.0)
[2018-01-18 06:57] LABS: ALB/GLOB RATIO 1.1 (1.1-1.8); ALBUMIN 3.7 g/dL (3.0-4.8); ALT/SGPT 31 U/L (7-56); AST/SGOT 33 U/L (14-36); BLOOD UREA NITROGEN 15 mg/dL (7-21); CALCIUM 9.8 mg/dL (8.4-10.5); GFR NON-AFRICAN AMERICAN 52
[2018-01-18 07:00] LABS: T4 7.6 ug/dL (5.5-11.0)
[2018-01-18 07:14] LABS: T3 1.15 ng/mL (0.97-1.69)
[2018-01-18] MEDS: Pantoprazole 40 mg EC Tab PO SCH (10:17)
--- NOTE | 2018-01-18 12:58 | CP.CCUPN ---
<Steve - Last Filed: 01/18/18 12:55> CCU Subjective - Physician Review Subjective (Free Text): Rohit Wilson, PGY1 ICU Progress Note for Dr. Lal Patient was seen and examined at bedside this morning. She still endorses weakness. Her mental status is still AAOx3. She denies cp, sob, abdominal pain, nausea, vomiting, diarrhea. Vital signs are stable. BP was 152/93 during time of interview. Afebrile overnight. No adverse overnight events. A full 12 point ROS was conducted and unremarkable except as stated above. CCU Objective - Vital Signs / Intake & Output Vital Signs (Last 4 hours): Vital Signs BP 01/18/18 10:17 170/85 H 01/18/18 10:16 170/85 H Intake and Output (Last 8hrs): Intake & Output 01/17/18 01/18/18 01/18/18 22:59 06:59 14:59 Intake Total 1050 Output Total 500 Balance 550 Intake: IV 600 Right Hand 600 Oral 450 Output: Urine 500 Urethral (Marcos) 500 - Physical Exam Head: Positive for: Atraumatic, Normocephalic Pupils: Positive for: Non-Reactive. Negative for: PERRL Extroacular Muscles: Positive for: EOMI Mouth: Positive for: Moist Mucous Membranes Pharnyx: Positive for: Normal Neck: Positive for: Normal Range of Motion. Negative for: Meningeal Signs Respiratory/Chest: Positive for: Clear to Auscultation. Negative for: Respiratory Distress, Accessory Muscle Use, Wheezes, Rales, Rhonchi Cardiovascular: Positive for: Regular Rate and Rhythm, Normal S1, S2 Abdomen: Positive for: Normal Bowel Sounds. Negative for: Tenderness, Distention, Peritoneal Signs Genitourinary/Pelvic Exam: Positive for: Other (Marcos is in place) Upper Extremity: Positive for: Normal ROM, NORMAL PULSES, Other (3-4/5 motor strenth in Left Upper Ext. 5/5 in R-UE. ). Negative for: Normal Inspection, Cyanosis, Edema Lower Extremity: Positive for: Other (3-4/5 motor strength in the left lower ext. 5/5 in right lower ext. ). Negative for: Edema, CALF TENDERNESS, Cyanosis, Kait's Sign, Tenderness Neurological: Positive for: Other (General left sided muscle weakness. Sensation grossly intact. Facial droop on left side. ). Negative for: CN II-XII Intact, Speech Normal (Mild slurring of speech. ) Skin: Positive for: Warm, Dry, Normal Color. Negative for: Rashes Psychiatric: Positive for: Alert, Oriented x 3 - Medications Active Medications: Active Medications Generic Name Dose Route Start Last Admin Trade Name Freq PRN Reason Stop Dose Admin Amlodipine Besylate 10 mg 01/18/18 10:00 01/18/18 10:17 Norvasc PO 10 mg DAILY RUPERTO Administration Ascorbic Acid 500 mg 01/17/18 10:00 01/18/18 10:18 Vitamin C 500 Mg Tab PO 500 mg DAILY RUPERTO Administration Aspirin 81 mg 01/18/18 10:00 01/18/18 10:15 Ecotrin PO 81 mg DAILY RUPERTO Administration Clopidogrel Bisulfate 75 mg 01/19/18 10:00 Plavix PO DAILY RUPERTO Ezetimibe 10 mg 01/17/18 10:00 01/18/18 10:18 Zetia PO 10 mg DAILY RUPERTO Administration Gemfibrozil 600 mg 01/17/18 10:00 01/18/18 10:15 Lopid PO 600 mg DAILY RUPERTO Administration Hydralazine HCl 10 mg 01/17/18 09:36 01/18/18 05:47 Apresoline IVP 10 mg Q6 PRN Administration FOR SBP>160 Losartan Potassium 100 mg 01/17/18 10:00 01/18/18 10:14 Cozaar PO 100 mg DAILY RUPERTO Administration Metoprolol Tartrate 25 mg 01/17/18 10:00 01/18/18 10:16 Lopressor PO 25 mg BID RUPERTO Administration Pantoprazole Sodium 40 mg 01/17/18 10:00 01/18/18 10:17 Protonix Ec Tab PO 40 mg DAILY RUPERTO Administration Sertraline HCl 50 mg 01/17/18 10:00 01/18/18 10:19 Zoloft PO 50 mg DAILY RUPERTO Administration - Patient Studies Lab Studies: Microbiology Studies 01/16/18 23:10 Urine Culture - Final Urine,Marcos Gram Positive Reagan Lab Studies 01/18/18 01/18/18 01/18/18 Range/Units 05:20 05:20 05:20 WBC 9.2 (4.5-11.0) 10^3/uL RBC 3.55 (3.5-6.1) 10^6/uL Hgb 10.2 L (12.0-16.0) g/dL Hct 31.8 L (36.0-48.0) % MCV 89.6 (80.0-105.0) fl MCH 28.7 (25.0-35.0) pg MCHC 32.1 (31.0-37.0) g/dl RDW 14.3 (11.5-14.5) % Plt Count 272 (120.0-450.0) 10^3/uL MPV 9.3 (7.0-11.0) fl Gran % 68.0 (50.0-68.0) % Lymph % (Auto) 20.8 L (22.0-35.0) % [place] % (Auto) 6.7 H (1.0-6.0) % Eos % (Auto) 4.1 (1.5-5.0) % Baso % (Auto) 0.4 (0.0-3.0) % Gran # 6.25 (1.4-6.5) Lymph # (Auto) 1.9 (1.2-3.4) [place] # (Auto) 0.6 (0.1-0.6) Eos # (Auto) 0.4 (0.0-0.7) Baso # (Auto) 0.04 (0.0-2.0) K/mm3 Sodium 139 (132-148) mmol/L Potassium 3.8 (3.6-5.0) mmol/L Chloride 111 H (98-107) mmol/L Carbon Dioxide 23 (21-33) mmol/L Anion Gap 10 (10-20) BUN 15 (7-21) mg/dL Creatinine 1.0 (0.7-1.2) mg/dl Est GFR ( Amer) > 60 Est GFR (Non-Af Amer) 52 Random Glucose 112 H (70-110) mg/dL Calcium 9.8 (8.4-10.5) mg/dL Phosphorus 2.9 (2.5-4.5) mg/dL Magnesium 2.0 (1.7-2.2) mg/dL Ferritin ng/mL Total Bilirubin 0.4 (0.2-1.3) mg/dL AST 33 (14-36) U/L ALT 31 (7-56) U/L Alkaline Phosphatase 146 H (38-126) U/L Total Protein 6.9 (5.8-8.3) g/dL Albumin 3.7 (3.0-4.8) g/dL Globulin 3.2 gm/dL Albumin/Globulin Ratio 1.1 (1.1-1.8) Folate ng/mL Thyroxine (T4) 7.6 (5.5-11.0) ug/dL Total T3 1.15 (0.97-1.69) ng/mL TSH 3rd Generation 0.55 (0.46-4.68) mIU/mL 01/16/18 Range/Units 23:11 WBC (4.5-11.0) 10^3/uL RBC (3.5-6.1) 10^6/uL Hgb (12.0-16.0) g/dL Hct (36.0-48.0) % MCV (80.0-105.0) fl MCH (25.0-35.0) pg MCHC (31.0-37.0) g/dl RDW (11.5-14.5) % Plt Count (120.0-450.0) 10^3/uL MPV (7.0-11.0) fl Gran % (50.0-68.0) % Lymph % (Auto) (22.0-35.0) % [place] % (Auto) (1.0-6.0) % Eos % (Auto) (1.5-5.0) % Baso % (Auto) (0.0-3.0) % Gran # (1.4-6.5) Lymph # (Auto) (1.2-3.4) [place] # (Auto) (0.1-0.6) Eos # (Auto) (0.0-0.7) Baso # (Auto) (0.0-2.0) K/mm3 Sodium (132-148) mmol/L Potassium (3.6-5.0) mmol/L Chloride (98-107) mmol/L Carbon Dioxide (21-33) mmol/L Anion Gap (10-20) BUN (7-21) mg/dL Creatinine (0.7-1.2) mg/dl Est GFR ( Amer) Est GFR (Non-Af Amer) Random Glucose (70-110) mg/dL Calcium (8.4-10.5) mg/dL Phosphorus (2.5-4.5) mg/dL Magnesium (1.7-2.2) mg/dL Ferritin 48.6 ng/mL Total Bilirubin (0.2-1.3) mg/dL AST (14-36) U/L ALT (7-56) U/L Alkaline Phosphatase (38-126) U/L Total Protein (5.8-8.3) g/dL Albumin (3.0-4.8) g/dL Globulin gm/dL Albumin/Globulin Ratio (1.1-1.8) Folate 14.8 ng/mL Thyroxine (T4) (5.5-11.0) ug/dL Total T3 (0.97-1.69) ng/mL TSH 3rd Generation (0.46-4.68) mIU/mL Laboratory Results - last 24 hr 01/16/18 01/18/18 01/18/18 23:11 05:20 05:20 WBC 9.2 RBC 3.55 Hgb 10.2 L Hct 31.8 L MCV 89.6 MCH 28.7 MCHC 32.1 RDW 14.3 Plt Count 272 MPV 9.3 Gran % 68.0 Lymph % (Auto) 20.8 L [place] % (Auto) 6.7 H Eos % (Auto) 4.1 Baso % (Auto) 0.4 Gran # 6.25 Lymph # (Auto) 1.9 [place] # (Auto) 0.6 Eos # (Auto) 0.4 Baso # (Auto) 0.04 Sodium Potassium Chloride Carbon Dioxide Anion Gap BUN Creatinine Est GFR ( Amer) Est GFR (Non-Af Amer) Random Glucose Calcium Phosphorus Magnesium Ferritin 48.6 Total Bilirubin AST ALT Alkaline Phosphatase Total Protein Albumin Globulin Albumin/Globulin Ratio Folate 14.8 Thyroxine (T4) 7.6 Total T3 1.15 TSH 3rd Generation 0.55 01/18/18 05:20 WBC RBC Hgb Hct MCV MCH MCHC RDW Plt Count MPV Gran % Lymph % (Auto) [place] % (Auto) Eos % (Auto) Baso % (Auto) Gran # Lymph # (Auto) [place] # (Auto) Eos # (Auto) Baso # (Auto) Sodium 139 Potassium 3.8 Chloride 111 H Carbon Dioxide 23 Anion Gap 10 BUN 15 Creatinine 1.0 Est GFR ( Amer) > 60 Est GFR (Non-Af Amer) 52 Random Glucose 112 H Calcium 9.8 Phosphorus 2.9 Magnesium 2.0 Ferritin Total Bilirubin 0.4 AST 33 ALT 31 Alkaline Phosphatase 146 H Total Protein 6.9 Albumin 3.7 Globulin 3.2 Albumin/Globulin Ratio 1.1 Folate Thyroxine (T4) Total T3 TSH 3rd Generation Fingerstick Blood Sugar Results: 121 Critical Care Progress Note - Extremities/Vascular Does the Patient have a Marcos Catheter?: Yes Does the Patient need a Marcos Catheter?: Yes Catheter Insertion Criteria: Patient requires prolonged immobilization - Prophylaxis GI Prophylaxis GI: PPI - Prophylaxis DVT Prophylaxis DVT: SCDs - Nutrition Nutrition: Nutrition Category Date Time Status Heart Healthy Diet [DIET] Diets 01/17/18 Dinner Active Assessment/Plan - Assessment and Plan (Free Text) Assessment: Patient is a 87 y/o F with PMHx of HTN, HLD, CAD (x1 stent in 2014), chronic lower extremity pain, anxiety who was admitted for ischemic stroke. Patient found to have acute vs subacute right basal ganglia infarct. ICU consulted for evaluation of patient. Plan: Neuro: - Ischemic stroke - Acute vs Subacute Right Basal Ganglia Infarct - Brain MRI: acute vs subacute right basal ganglia infarct. Very small chronic infarct at the right parietal lobe laterally. - c/w ASA 81mg PO daily - Restarted on plavix as per cardiology - AAOx3. Left sided weakness on exam with left facial droop. - Neuro is on consult. Appreciated recs. - Maintain normothermia - PT/OT/Speech and Swallow Cardio: - Since patient is past the window of permissive HTN within the first 24 hours, resumed BP meds - c/w Cozaar, Lopressor for blood pressure - c/w ASA, plavix - Echo with bubble study showed EF 50%. No evidence of thrombus/vegetation or ASD. - Maintain MAP > 65 - Cardiology is on consult. Recs appreciated. - Lipid panel shows hypertriglyceridemia. Continue with HLD meds. - Hx HTN, CAD (x1 stent), and HLD Pulm: - Maintain SaO2 > 92% - No acute issues at this time GI: - GI ppx - Diet advanced to HHD, soft and thin liquids. Continue to advance as tolerated. Renal: - Maintain euvolemia - Marcos in place Heme: - SCDs for DVT ppx - H/H stable ID: - Afebrile; no leukocytosis - no active disease Endo: - Maintain euglycemia Code status: DNR/DNI Dispo: Patient is hemodynamically stable. Labs and imaging were reviewed. Pat ient is stable for transfer to med/surg. Case was discussed and reviewed with Attending Physician, Dr. Lal <Tarun Lal - Last Filed: 01/18/18 16:24> CCU Objective - Medications Active Medications: Active Medications Generic Name Dose Route Start Last Admin Trade Name Freq PRN Reason Stop Dose Admin Amlodipine Besylate 10 mg 01/18/18 10:00 01/18/18 10:17 Norvasc PO 10 mg DAILY RUPERTO Administration Ascorbic Acid 500 mg 01/17/18 10:00 01/18/18 10:18 Vitamin C 500 Mg Tab PO 500 mg DAILY RUPERTO Administration Aspirin 81 mg 01/18/18 10:00 01/18/18 10:15 Ecotrin PO 81 mg DAILY RUPERTO Administration Clopidogrel Bisulfate 75 mg 01/19/18 10:00 Plavix PO DAILY RUPERTO Ezetimibe 10 mg 01/17/18 10:00 01/18/18 10:18 Zetia PO 10 mg DAILY RUPERTO Administration Gemfibrozil 600 mg 01/17/18 10:00 01/18/18 10:15 Lopid PO 600 mg DAILY RUPERTO Administration Hydralazine HCl 10 mg 01/17/18 09:36 01/18/18 05:47 Apresoline IVP 10 mg Q6 PRN Administration FOR SBP>160 Losartan Potassium 100 mg 01/17/18 10:00 01/18/18 10:14 Cozaar PO 100 mg DAILY RUPERTO Administration Metoprolol Tartrate 100 mg 01/18/18 14:45 Lopressor PO BID RUPERTO Pantoprazole Sodium 40 mg 01/17/18 10:00 01/18/18 10:17 Protonix Ec Tab PO 40 mg DAILY RUPERTO Administration Sertraline HCl 50 mg 01/17/18 10:00 01/18/18 10:19 Zoloft PO 50 mg DAILY RUPERTO Administration - Patient Studies Lab Studies: Microbiology Studies 01/16/18 23:10 Urine Culture - Final Urine,Marcos Gram Positive Reagan Lab Studies 01/18/18 01/18/18 01/18/18 Range/Units 05:20 05:20 05:20 WBC 9.2 (4.5-11.0) 10^3/uL RBC 3.55 (3.5-6.1) 10^6/uL Hgb 10.2 L (12.0-16.0) g/dL Hct 31.8 L (36.0-48.0) % MCV 89.6 (80.0-105.0) fl MCH 28.7 (25.0-35.0) pg MCHC 32.1 (31.0-37.0) g/dl RDW 14.3 (11.5-14.5) % Plt Count 272 (120.0-450.0) 10^3/uL MPV 9.3 (7.0-11.0) fl Gran % 68.0 (50.0-68.0) % Lymph % (Auto) 20.8 L (22.0-35.0) % [place] % (Auto) 6.7 H (1.0-6.0) % Eos % (Auto) 4.1 (1.5-5.0) % Baso % (Auto) 0.4 (0.0-3.0) % Gran # 6.25 (1.4-6.5) Lymph # (Auto) 1.9 (1.2-3.4) [place] # (Auto) 0.6 (0.1-0.6) Eos # (Auto) 0.4 (0.0-0.7) Baso # (Auto) 0.04 (0.0-2.0) K/mm3 Sodium 139 (132-148) mmol/L Potassium 3.8 (3.6-5.0) mmol/L Chloride 111 H (98-107) mmol/L Carbon Dioxide 23 (21-33) mmol/L Anion Gap 10 (10-20) BUN 15 (7-21) mg/dL Creatinine 1.0 (0.7-1.2) mg/dl Est GFR ( Amer) > 60 Est GFR (Non-Af Amer) 52 Random Glucose 112 H (70-110) mg/dL Calcium 9.8 (8.4-10.5) mg/dL Phosphorus 2.9 (2.5-4.5) mg/dL Magnesium 2.0 (1.7-2.2) mg/dL Total Bilirubin 0.4 (0.2-1.3) mg/dL AST 33 (14-36) U/L ALT 31 (7-56) U/L Alkaline Phosphatase 146 H (38-126) U/L Total Protein 6.9 (5.8-8.3) g/dL Albumin 3.7 (3.0-4.8) g/dL Globulin 3.2 gm/dL Albumin/Globulin Ratio 1.1 (1.1-1.8) Thyroxine (T4) 7.6 (5.5-11.0) ug/dL Total T3 1.15 (0.97-1.69) ng/mL TSH 3rd Generation 0.55 (0.46-4.68) mIU/mL Laboratory Results - last 24 hr 01/18/18 01/18/18 01/18/18 05:20 05:20 05:20 WBC 9.2 RBC 3.55 Hgb 10.2 L Hct 31.8 L MCV 89.6 MCH 28.7 MCHC 32.1 RDW 14.3 Plt Count 272 MPV 9.3 Gran % 68.0 Lymph % (Auto) 20.8 L [place] % (Auto) 6.7 H Eos % (Auto) 4.1 Baso % (Auto) 0.4 Gran # 6.25 Lymph # (Auto) 1.9 [place] # (Auto) 0.6 Eos # (Auto) 0.4 Baso # (Auto) 0.04 Sodium 139 Potassium 3.8 Chloride 111 H Carbon Dioxide 23 Anion Gap 10 BUN 15 Creatinine 1.0 Est GFR ( Amer) > 60 Est GFR (Non-Af Amer) 52 Random Glucose 112 H Calcium 9.8 Phosphorus 2.9 Magnesium 2.0 Total Bilirubin 0.4 AST 33 ALT 31 Alkaline Phosphatase 146 H Total Protein 6.9 Albumin 3.7 Globulin 3.2 Albumin/Globulin Ratio 1.1 Thyroxine (T4) 7.6 Total T3 1.15 TSH 3rd Generation 0.55 Critical Care Progress Note - Nutrition Nutrition: Nutrition Category Date Time Status Heart Healthy Diet [DIET] Diets 01/17/18 Dinner Active Attending/Attestation - Attestation I have personally seen and examined this patient.: Yes I have fully participated in the care of the patient.: Yes I have reviewed all pertinent clinical information: Yes Notes (Text): 01/18/18 16:20 87 yo female admitted to icu with acute ischemic stroke, not a candidate for tPA, autohypertensed for 24 hrs, now will control BP better. maintain euvolemia, euglycemia and 02sat>95%, dvt/gi prophyalxis, echo, carotid doppler, swallow eval, pt/ot. ok to downgrade to [facility] ccm time 40 min
--- NOTE | 2018-01-18 13:18 | PN ---
DATE: 01/18/2018 SEX OF THE PATIENT: Female. AGE OF THE PATIENT: 87. REASON FOR CONSULTATION: Followup cardiac evaluation, admitted with stroke. Patient denies any chest pain, shortness of breath, any palpitation. Denies any weakness. Mild facial right-sided droop noted. PHYSICAL EXAMINATION: As follows, GENERAL: Patient lies flat in the bed, not in apparent distress, mild facial droop noted. VITAL SIGNS: Temperature afebrile, heart rate 71, blood pressure 192/86. HEENT: PERRLA. Extraocular muscles intact. NECK: Supple. No carotid bruit or thyromegaly. CHEST: Clear to auscultation. HEART: S1 and S2 regular. ABDOMEN: Soft. EXTREMITIES: Clubbing and cyanosis negative. LABORATORY DATA: Blood workup as follows, WBC 9.2, hemoglobin 10.2, hematocrit 31.8, platelet count 272,000. Chemistry shows sodium 139, potassium is 3.8, chloride is 111, carbon dioxide 23, anion gap of 10, BUN 15, creatinine 1.0. Echo, patient had it done yesterday that revealed ejection fraction 50%, trace MR, trace TR, RV systolic pressure 31, no thrombus or vegetation noted. Interatrial septum is intact with no evidence of interatrial septal defect by color flow and bowel study. MRI of the brain was done yesterday that revealed subacute infarct at the right basal ganglia identified very small chronic infarct right parietal lobe. No mass effect noted. IMPRESSION: An 87-year-old female with past medical history significant for hypertension, hyperlipidemia, presented with acute stroke, history of coronary artery disease status post percutaneous transluminal coronary angioplasty of right coronary artery on 05/21/2014 at [facility]. [id number] disease in left anterior descending at that time. RECOMMENDATION: Aggressive control of her blood pressure. Continue baby aspirin, continue Plavix from tomorrow, metoprolol 25 p.o. twice daily, started losartan 100 mg IV and also start 10 of Norvasc as well and put p.r.n. hydralazine 10 mg IV every 6 hours p.r.n. for systolic more than 160. The patient cannot take p.o. then we will change to IV, otherwise p.o. p.r.n. Boaz Kent MD [facility] # [phone]
--- NOTE | 2018-01-18 14:14 | CP.PCM.PN ---
Subjective - Date & Time of Evaluation Date of Evaluation: 01/18/18 Time of Evaluation: 14:11 - Subjective Subjective: Neurology Progress Note for Dr. Guerra Patient seen and examined at bedside. No acute overnight events. Patient states she still feels weak. Patient denies CP, SOB, n/v/d, abdominal pain, fever, chills, CH, or dizziness. Objective - Vital Signs/Intake and Output Vital Signs (last 24 hours): Temp Pulse Resp BP Pulse Ox 98.6 F 71 18 170/85 H 97 01/17/18 19:00 01/18/18 05:47 01/17/18 17:47 01/18/18 10:17 01/17/18 17:15 - Medications Medications: Current Medications Amlodipine Besylate (Norvasc) 10 mg PO DAILY [facility] Last Admin: 01/18/18 10:17 Dose: 10 mg Ascorbic Acid (Vitamin C 500 Mg Tab) 500 mg PO DAILY [facility] Last Admin: 01/18/18 10:18 Dose: 500 mg Aspirin (Ecotrin) 81 mg PO DAILY [facility] Last Admin: 01/18/18 10:15 Dose: 81 mg Clopidogrel Bisulfate (Plavix) 75 mg PO DAILY [facility] Ezetimibe (Zetia) 10 mg PO DAILY [facility] Last Admin: 01/18/18 10:18 Dose: 10 mg Gemfibrozil (Lopid) 600 mg PO DAILY [facility] Last Admin: 01/18/18 10:15 Dose: 600 mg Hydralazine HCl (Apresoline) 10 mg IVP Q6 PRN PRN Reason: FOR SBP>160 Last Admin: 01/18/18 05:47 Dose: 10 mg Losartan Potassium (Cozaar) 100 mg PO DAILY [facility] Last Admin: 01/18/18 10:14 Dose: 100 mg Metoprolol Tartrate (Lopressor) 25 mg PO BID [facility] Last Admin: 01/18/18 10:16 Dose: 25 mg Pantoprazole Sodium (Protonix Ec Tab) 40 mg PO DAILY [facility] Last Admin: 01/18/18 10:17 Dose: 40 mg Sertraline HCl (Zoloft) 50 mg PO DAILY [facility] Last Admin: 01/18/18 10:19 Dose: 50 mg - Labs Labs: 01/18/18 05:20 01/18/18 05:20 PT 12.2 SECONDS (9.4-12.5) 01/16/18 18:50 INR 1.07 01/16/18 18:50 APTT 27.4 Seconds (25.1-36.5) 01/16/18 18:50 - Constitutional Appears: No Acute Distress - Head Exam Head Exam: NORMAL INSPECTION - Eye Exam Eye Exam: Normal appearance - ENT Exam ENT Exam: Mucous Membranes Moist, Normal Exam - Neck Exam Neck Exam: Normal Inspection - Respiratory Exam Respiratory Exam: Clear to Ausculation Bilateral, NORMAL BREATHING PATTERN - GI/Abdominal Exam GI & Abdominal Exam: Soft - Back Exam Back Exam: NORMAL INSPECTION - Neurological Exam Neurological Exam: Alert, Awake, CN II-XII Intact, Oriented x3 Additional comments: Left sided facial droop Mild dysarthria LUE strength 5/5, RUE 4/5 LLE strength 5/5, RLE 4/5 Sensation grossly intact Left pronator drift Spatial orientation intact Frontal/cognition intact Assessment and Plan - Assessment and Plan (Free Text) Assessment: 87 yo F with PMH of HTN, HLD, chornic LE pain, anxiety presents to [facility] for AMS, dysarthria, and facial droop was found to have acute/subacute infarction at the right basal ganglia with a very small chronic infarct in the right parietal lobe on brain MRI. Plan: - CTA head/neck shows mild atherosclerotic disease in the left and right carotid artery - Cont antihypertensives - Cont ASA and Plavix - Neurochecks - PT/OT Patient seen and discussed in detail with Dr. Guerra. Berto Maxwell, DO PGY2
--- NOTE | 2018-01-18 14:29 | CP.PCM.APN ---
Subjective - Date & Time of Evaluation Date of Evaluation: 01/18/18 Time of Evaluation: 11:10 - Subjective Subjective: pt seen and examined at bedside pt asleep in NAD , family at bedside Review of Systems - Constitutional Constitutional: Fatigue, Weakness Objective - Vital Signs/Intake and Output Vital Signs (last 24 hours): Temp Pulse Resp BP Pulse Ox 98.6 F 71 18 170/85 H 97 01/17/18 19:00 01/18/18 05:47 01/17/18 17:47 01/18/18 10:17 01/17/18 17:15 - Medications Medications: Current Medications Amlodipine Besylate (Norvasc) 10 mg PO DAILY [facility] Last Admin: 01/18/18 10:17 Dose: 10 mg Ascorbic Acid (Vitamin C 500 Mg Tab) 500 mg PO DAILY [facility] Last Admin: 01/18/18 10:18 Dose: 500 mg Aspirin (Ecotrin) 81 mg PO DAILY [facility] Last Admin: 01/18/18 10:15 Dose: 81 mg Clopidogrel Bisulfate (Plavix) 75 mg PO DAILY [facility] Ezetimibe (Zetia) 10 mg PO DAILY [facility] Last Admin: 01/18/18 10:18 Dose: 10 mg Gemfibrozil (Lopid) 600 mg PO DAILY [facility] Last Admin: 01/18/18 10:15 Dose: 600 mg Hydralazine HCl (Apresoline) 10 mg IVP Q6 PRN PRN Reason: FOR SBP>160 Last Admin: 01/18/18 05:47 Dose: 10 mg Losartan Potassium (Cozaar) 100 mg PO DAILY [facility] Last Admin: 01/18/18 10:14 Dose: 100 mg Metoprolol Tartrate (Lopressor) 25 mg PO BID [facility] Last Admin: 01/18/18 10:16 Dose: 25 mg Pantoprazole Sodium (Protonix Ec Tab) 40 mg PO DAILY [facility] Last Admin: 01/18/18 10:17 Dose: 40 mg Sertraline HCl (Zoloft) 50 mg PO DAILY [facility] Last Admin: 01/18/18 10:19 Dose: 50 mg - Labs Labs: 01/18/18 05:20 01/18/18 05:20 PT 12.2 SECONDS (9.4-12.5) 01/16/18 18:50 INR 1.07 01/16/18 18:50 APTT 27.4 Seconds (25.1-36.5) 01/16/18 18:50 - Constitutional Appears: Non-toxic, No Acute Distress - Head Exam Head Exam: NORMOCEPHALIC - ENT Exam Additional comments: left facial droop - Neck Exam Neck Exam: Normal Inspection - Cardiovascular Exam Cardiovascular Exam: +S1, +S2 - GI/Abdominal Exam GI & Abdominal Exam: Normal Bowel Sounds - Psychiatric Exam Psychiatric exam: Normal Affect - Skin Skin Exam: Dry, Intact, Normal Color Assessment and Plan - Assessment and Plan (Free Text) Plan: 01/16/18 18:44 CTA HEAD/NECK CODE STROKE [CT] HEAD W/O (CODE STROKE) [CT] CHEST PORTABLE [RAD] 01/17/18 06:50 BRAIN WITHOUT CONTRAST [MRI] Pt is a 87 yr old female with pmh sig for htn, hld, cad with rca stent in 2014, anemia, chronic back pain, anxiety, bilateral knee replacement who was found altered and mumbling by her family, slurred speech and left facial droop and subsequently taken to the ER where a code stroke was called and pt is now undergoing neuro eval and cardiology eval with mRI showing subacute infarct in riht basal ganglia echo revealed EF 50% no ISD Speech lang recomnedations noted P.T eval noted with acute rehab as recommendation SW follow up for DC planning will follow clinical course
--- NOTE | 2018-01-18 14:43 | CP.PCM.PN ---
<Maco Lynne - Last Filed: 01/18/18 14:40> Subjective - Date & Time of Evaluation Date of Evaluation: 01/18/18 Time of Evaluation: 14:40 - Subjective Subjective: Maco Lynne, PGY-1, Internal Medicine Progress Note for Dr. Arnold. Patient seen and examined at bedside. Patient denies any overnight events. Patient is AAOx3. Patient complains of left sided weakness and left sided facial droop but denies any headache, chest pain, heart palpitations, shortness of breath, nausea, vomiting, constipation, diarrhea, dysuria, and hematuria. 12- point ROS was negative except for what was mentioned above. Objective - Vital Signs/Intake and Output Vital Signs (last 24 hours): Temp Pulse Resp BP Pulse Ox 98.6 F 71 18 170/85 H 97 01/17/18 19:00 01/18/18 05:47 01/17/18 17:47 01/18/18 10:17 01/17/18 17:15 - Medications Medications: Current Medications Amlodipine Besylate (Norvasc) 10 mg PO DAILY [facility] Last Admin: 01/18/18 10:17 Dose: 10 mg Ascorbic Acid (Vitamin C 500 Mg Tab) 500 mg PO DAILY [facility] Last Admin: 01/18/18 10:18 Dose: 500 mg Aspirin (Ecotrin) 81 mg PO DAILY [facility] Last Admin: 01/18/18 10:15 Dose: 81 mg Clopidogrel Bisulfate (Plavix) 75 mg PO DAILY [facility] Ezetimibe (Zetia) 10 mg PO DAILY [facility] Last Admin: 01/18/18 10:18 Dose: 10 mg Gemfibrozil (Lopid) 600 mg PO DAILY [facility] Last Admin: 01/18/18 10:15 Dose: 600 mg Hydralazine HCl (Apresoline) 10 mg IVP Q6 PRN PRN Reason: FOR SBP>160 Last Admin: 01/18/18 05:47 Dose: 10 mg Losartan Potassium (Cozaar) 100 mg PO DAILY [facility] Last Admin: 01/18/18 10:14 Dose: 100 mg Metoprolol Tartrate (Lopressor) 25 mg PO BID [facility] Last Admin: 01/18/18 10:16 Dose: 25 mg Pantoprazole Sodium (Protonix Ec Tab) 40 mg PO DAILY [facility] Last Admin: 01/18/18 10:17 Dose: 40 mg Sertraline HCl (Zoloft) 50 mg PO DAILY [facility] Last Admin: 01/18/18 10:19 Dose: 50 mg - Labs Labs: 01/18/18 05:20 01/18/18 05:20 PT 12.2 SECONDS (9.4-12.5) 01/16/18 18:50 INR 1.07 01/16/18 18:50 APTT 27.4 Seconds (25.1-36.5) 01/16/18 18:50 - Constitutional Appears: Well, Non-toxic, No Acute Distress - Head Exam Head Exam: ATRAUMATIC, NORMAL INSPECTION, NORMOCEPHALIC - Eye Exam Eye Exam: EOMI Pupil Exam: PERRL - Respiratory Exam Respiratory Exam: Clear to Ausculation Bilateral, NORMAL BREATHING PATTERN Additional comments: Coarse breath sounds auscultated in bilateral upper lobes. - Cardiovascular Exam Cardiovascular Exam: REGULAR RHYTHM - GI/Abdominal Exam GI & Abdominal Exam: Soft, Normal Bowel Sounds - Extremities Exam Extremities Exam: Full ROM - Neurological Exam Neurological Exam: Alert, Awake, CN II-XII Intact, Oriented x3 Neuro motor strength exam: Left Upper Extremity: 3, Right Upper Extremity: 5, Left Lower Extremity: 3, Right Lower Extremity: 5 Assessment and Plan - Assessment and Plan (Free Text) Assessment: 87 year old female with past medical history of hypertension, hyperlipidemia, anemia, CAD with RCA stent in 2014, chronic lower extremity pain, and anxiety presented with altered mental status, facial droop, and slurred speech. Patient was last seen normal at 18:00 on 11/16 and brought to [facility] [place] by EMS. Head CT showed no acute intracranial abnormalities. No significant findings to account for clinical presentation. CTA showed no significant stenosis of the brain and neck. Trace atherosclerotic changes were seen at the bilateral carotic bulb regions as well as cavernous internal carotid arteries bilaterally. Left apical pulmonary nodules were seen. Bilateral thyroid nodules were found. Plan: Slurred speech and Facial Droop likely 2/2 to Acute Ischemic Stroke vs. TIA -Patient initially presented with an NIHSS stroke scale of 6. -Head CT showed no acute intracranial abnormalities. No significant findings to account for clinical presentation. -Head and neck CTA showed no significant stenosis of the brain and neck. Trace atherosclerotic changes were seen at the bilateral carotic bulb regions as well as cavernous internal carotid arteries bilaterally. 4 mm left apical pulmonary nodules were seen. Bilateral thyroid nodules were found. -MRI Head results: acute infarction at the right basal ganglia is identified. 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 No mass effect; age related degenerative findings -Echocardiogram with bubble study results: EF: 50%, no intraseptal defect -Negative troponinsx3 -EKG: NSR with left axis deviation and nonspecific ST and T wave abnormality. HR: 84, QRS: 78, QTc: 423 -Lipid panel: unremarkable except for TG of 268 -Neuro checks Q1 -Vital signs Q15 minutes -Swallow and speech evaluation concluded that patient has mild oral dysphagia; mild stasis post swallow of dry solids. L sided facial weakness that does not significantly affect eating or swallowing. Mild dysarthria, but speech is intelligible. Recommendations include soft regular consistency diet with thin liquids -Aspiration precautions -Fall precautions -Heart healthy diet -Aggressive physical therapy and occupational therapy. PT recommends acute rehabilitation and treatment for 3-5 times a week for 2 weeks. -TPa not given -Aspirin 81 mg and plavix 75 mg PO daily Left Upper Lobe Lung Mass -4mm mass seen on Head and Neck CTA -Follow up outpatient CT Incidental Thyroid Nodule -Thyroid Nodule seen on Head and Neck CTA -TSH: 0.9 -Unremarkable T3 and T4. -Follow up with outpatient thyroid ultrasound. Normocytic Anemia -Hgb: 10.2 from 9.7 -Iron: 80 -TIBC: 365 -Ferritin: 48.6 -Folate: 14.8 -Consider ordering peripheral blood smear. Hypertension -Systolic blood pressures ranging from 170-192 -HR: 71 -Continue with cozaar, apresoline. Increased lopressor to 100 mg BID. Started amlodipine 10 mg daily as per cardiology. Hyperlipidemia -Lipid panel: unremarkable except for TG of 268 -Continue with lopid, zetia. Elevated alkaline phosphatase -ALP: 146 -Continue to monitor History of General Anxiety Disorder -Continue home sertraline GI prophylaxis: protonix 40 mg daily DVT prophylaxis: SCDs Patient seen and evaluated with Dr. Arnold. <Jefe Arnold - Last Filed: 01/18/18 15:19> Objective - Vital Signs/Intake and Output Vital Signs (last 24 hours): Temp Pulse Resp BP Pulse Ox 98.6 F 75 20 170/85 H 96 01/18/18 12:00 01/18/18 12:00 01/18/18 12:00 01/18/18 10:17 01/18/18 12:00 - Medications Medications: Current Medications Amlodipine Besylate (Norvasc) 10 mg PO DAILY [facility] Last Admin: 01/18/18 10:17 Dose: 10 mg Ascorbic Acid (Vitamin C 500 Mg Tab) 500 mg PO DAILY [facility] Last Admin: 01/18/18 10:18 Dose: 500 mg Aspirin (Ecotrin) 81 mg PO DAILY [facility] Last Admin: 01/18/18 10:15 Dose: 81 mg Clopidogrel Bisulfate (Plavix) 75 mg PO DAILY [facility] Ezetimibe (Zetia) 10 mg PO DAILY [facility] Last Admin: 01/18/18 10:18 Dose: 10 mg Gemfibrozil (Lopid) 600 mg PO DAILY [facility] Last Admin: 01/18/18 10:15 Dose: 600 mg Hydralazine HCl (Apresoline) 10 mg IVP Q6 PRN PRN Reason: FOR SBP>160 Last Admin: 01/18/18 05:47 Dose: 10 mg Losartan Potassium (Cozaar) 100 mg PO DAILY [facility] Last Admin: 01/18/18 10:14 Dose: 100 mg Metoprolol Tartrate (Lopressor) 100 mg PO BID [facility] Pantoprazole Sodium (Protonix Ec Tab) 40 mg PO DAILY [facility] Last Admin: 01/18/18 10:17 Dose: 40 mg Sertraline HCl (Zoloft) 50 mg PO DAILY [facility] Last Admin: 01/18/18 10:19 Dose: 50 mg - Labs Labs: 01/18/18 05:20 01/18/18 05:20 PT 12.2 SECONDS (9.4-12.5) 01/16/18 18:50 INR 1.07 01/16/18 18:50 APTT 27.4 Seconds (25.1-36.5) 01/16/18 18:50 Attending/Attestation - Attestation I have personally seen and examined this patient.: Yes I have fully participated in the care of the patient.: Yes I have reviewed all pertinent clinical information, including history, physical exam and plan: Yes Notes (Text): 87 y/o F with PMH as above here as a code stroke with left facial droop and left sided weakness. CT head was negative. CTA showed no significant stenosis of the brain and neck. MRI showed acute infarction at the right basal ganglia is identified. 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 Neurology on board c/w ASA, statin and plavix Echo: EF 50 %, no intraseptal defect Aggressive PT Pt was also noted to have a 4mm mass on her left upper lobe and also a thyroid nodule, pt will need outpatient follow up. Pt to be transferred out of the unit today 01/18/18 15:18
[2018-01-19 06:58] LABS: BASO # 0.02 K/mm3 (0.0-2.0); BASO % 0.2 % (0.0-3.0); EOS # 0.3 (0.0-0.7); EOS % 3.1 % (1.5-5.0); GRAN # 6.15 (1.4-6.5); GRAN % 70.2 % (50.0-68.0); HEMOGLOBIN 9.7 g/dL (12.0-16.0); LYMPH # 1.5 (1.2-3.4); MEAN CORPUSCULAR HEMOGLOBIN 29.4 pg (25.0-35.0); MEAN CORPUSCULAR HGB CONC 32.7 g/dl (31.0-37.0); MEAN PLATELET VOLUME 9.2 fl (7.0-11.0); MONO # 0.8 (0.1-0.6); MONO % 9.5 % (1.0-6.0); RBC 3.3 10^6/uL (3.5-6.1); RED CELL DISTRIBUTION WIDTH 14.5 % (11.5-14.5); WHITE BLOOD COUNT 8.8 10^3/uL (4.5-11.0)
[2018-01-19 07:23] LABS: ALB/GLOB RATIO 1.1 (1.1-1.8); ALBUMIN 3.4 g/dL (3.0-4.8); CALCIUM 9.7 mg/dL (8.4-10.5)
--- NOTE | 2018-01-19 08:51 | CP.PCM.PN ---
Subjective - Date & Time of Evaluation Date of Evaluation: 01/19/18 Time of Evaluation: 06:45 - Subjective Subjective: No distress, lying in bed Reason for consultation and follow up: Cardiac follow up post stroke,history of coronary artery disease post stents, hypertension, hyperlipidemia. Seen and examined by me and Dr. Tobar Objective - Vital Signs/Intake and Output Vital Signs (last 24 hours): Temp Pulse Resp BP Pulse Ox 98 F 79 18 150/82 98 01/19/18 06:00 01/19/18 06:00 01/19/18 06:00 01/19/18 06:00 01/19/18 06:00 - Medications Medications: Current Medications Amlodipine Besylate (Norvasc) 10 mg PO DAILY [facility] Last Admin: 01/18/18 10:17 Dose: 10 mg Ascorbic Acid (Vitamin C 500 Mg Tab) 500 mg PO DAILY [facility] Last Admin: 01/18/18 10:18 Dose: 500 mg Aspirin (Ecotrin) 81 mg PO DAILY [facility] Last Admin: 01/18/18 10:15 Dose: 81 mg Clopidogrel Bisulfate (Plavix) 75 mg PO DAILY [facility] Ezetimibe (Zetia) 10 mg PO DAILY [facility] Last Admin: 01/18/18 10:18 Dose: 10 mg Gemfibrozil (Lopid) 600 mg PO DAILY [facility] Last Admin: 01/18/18 10:15 Dose: 600 mg Hydralazine HCl (Apresoline) 10 mg IVP Q6 PRN PRN Reason: FOR SBP>160 Last Admin: 01/18/18 05:47 Dose: 10 mg Losartan Potassium (Cozaar) 100 mg PO DAILY [facility] Last Admin: 01/18/18 10:14 Dose: 100 mg Metoprolol Tartrate (Lopressor) 100 mg PO BID [facility] Last Admin: 01/18/18 17:38 Dose: 100 mg Pantoprazole Sodium (Protonix Ec Tab) 40 mg PO DAILY [facility] Last Admin: 01/18/18 10:17 Dose: 40 mg Sertraline HCl (Zoloft) 50 mg PO DAILY [facility] Last Admin: 01/18/18 10:19 Dose: 50 mg - Labs Labs: 01/19/18 06:20 01/19/18 06:20 PT 12.2 SECONDS (9.4-12.5) 01/16/18 18:50 INR 1.07 01/16/18 18:50 APTT 27.4 Seconds (25.1-36.5) 01/16/18 18:50 - Constitutional Appears: Non-toxic, No Acute Distress - Head Exam Head Exam: NORMAL INSPECTION, NORMOCEPHALIC - ENT Exam ENT Exam: Mucous Membranes Moist, Normal Exam - Respiratory Exam Respiratory Exam: Decreased Breath Sounds, Clear to Ausculation Bilateral, NORMAL BREATHING PATTERN - Cardiovascular Exam Cardiovascular Exam: +S1, +S2 - GI/Abdominal Exam GI & Abdominal Exam: Soft, Normal Bowel Sounds - Extremities Exam Additional comments: left sided weakness - Neurological Exam Neurological Exam: Alert Additional comments: slurred speech left sided weakness mild left facial droop - Psychiatric Exam Psychiatric exam: Normal Affect, Normal Mood - Skin Skin Exam: Dry, Normal Color, Warm Assessment and Plan - Assessment and Plan (Free Text) Assessment: An 87 year old female who came in to the ER due to altered mental status, slurred speech and facial droop. History of hypertension, hyperlipidemia, chronic lower extremity pain,bilateral knee replacements, coronary artery disease post stent of RCA and moderate disease of LAD (last cardiac cath 05/2014 at [facility]).Admitted for stroke, no TPA given. Plan: No distress, awake Heart rate controlled Blood pressure controlled Cardiac status stable On Norvasc 10 mg daily,ASA 81 mg daily, Plavix 75 mg daily, Lopid 600 mg daily, Hydralazine IV PRN, Cozaar 100 mg daily, Lopressor 100 mg BID Continue current medications Continue current treatment Speech and Physical therapy Will follow up Plan and treatment discussed with Dr. Tobar
[2018-01-19] MEDS ORDERED: Iohexol 350 MG/100 ML VIAL ONE (09:32)
[2018-01-19] MEDS: Pantoprazole 40 mg EC Tab PO SCH (09:32)
--- NOTE | 2018-01-19 11:49 | CT ---
Date of service: 01/19/2018 PROCEDURE: CT HEAD WITHOUT CONTRAST. HISTORY: LUE weakness COMPARISON: 01/16/2018 TECHNIQUE: Axial computed tomography images were obtained through the head/brain without intravenous contrast. Radiation dose: Total exam DLP = 878.72 mGy-cm. This CT exam was performed using one or more of the following dose reduction techniques: Automated exposure control, adjustment of the mA and/or kV according to patient size, and/or use of iterative reconstruction technique. FINDINGS: HEMORRHAGE: No intracranial hemorrhage. BRAIN: No mass effect or edema. 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 Question evolving infarct in the right basal ganglia/thalamus. VENTRICLES: Unremarkable. No hydrocephalus. CALVARIUM: Unremarkable. PARANASAL SINUSES: Unremarkable as visualized. No significant inflammatory changes. MASTOID AIR CELLS: Unremarkable as visualized. No inflammatory changes. OTHER FINDINGS: None. 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 Question evolving infarct in the right basal ganglia/thalamus. No acute hemorrhage. Recommend MRI for further assessment.
--- NOTE | 2018-01-19 12:04 | CT ---
Date of service: 01/19/2018 PROCEDURE: CT Angiography of the Brain. HISTORY: cva COMPARISON: None available. TECHNIQUE: CT angiography of the intracranial arteries was performed. Coronal and sagittal maximum intensity projection reformated images were generated. Radiation dose: Total exam DLP = 420.7 mGy-cm. This CT exam was performed using one or more of the following dose reduction techniques: Automated exposure control, adjustment of the mA and/or kV according to patient size, and/or use of iterative reconstruction technique. FINDINGS: INTERNAL CEREBRAL ARTERIES: Unremarkable. The skull base, petrous, cavernous and supraclinoid segments are bilaterally widely patent. ANTERIOR CEREBRAL ARTERIES: Unremarkable. A1 and A2 segments are widely patent. Smaller distal branches unremarkable, as visualized. MIDDLE CEREBRAL ARTERIES: Unremarkable. M1 and M2 segments are widely patent. Perisylvian branches grossly symmetric. POSTERIOR CIRCULATION: Basilar Artery: Unremarkable. Distal Vertebral Arteries: Unremarkable. Posterior Cerebral Arteries: Unremarkable. Posterior Inferior Cerebellar Arteries: Unremarkable. ANEURYSM/ VASCULAR MALFORMATIONS: None. OTHER FINDINGS: None. IMPRESSION: Unremarkable CT Angiography of the Brain. Date of service: 01/19/2018 PROCEDURE: CT Angiography of the neck with contrast HISTORY: cva COMPARISON: None. TECHNIQUE: Contiguous axial images of the neck were obtained from the level of the skull-base to the superior mediastinum in the arteriographic phase of enhancement. Coronal and sagittal reformats or also generated. IV contrast dose: Radiation dose: Total exam DLP = 420.7 mGy-cm. This CT exam was performed using one or more of the following dose reduction techniques: Automated exposure control, adjustment of the mA and/or kV according to patient size, and/or use of iterative reconstruction technique. FINDINGS: RIGHT CAROTID ARTERIES: Common Carotid Artery: Normal. Carotid Bifurcation: Normal. Internal Carotid Artery:Normal. External Carotid Artery (proximal branches): Normal. LEFT CAROTID ARTERIES: Common Carotid Artery: Normal. Carotid Bifurcation: Normal. Internal Carotid Artery:Normal. External Carotid Artery (proximal branches): Normal. VERTEBRAL ARTERIES: Right Vertebral Artery: Normal. Left Vertebral Artery: Normal. OTHER FINDINGS: no aortic atherosclerotic calcification or mural plaque present. IMPRESSION: Normal CT Angiography of the neck.
--- NOTE | 2018-01-19 14:16 | CP.PCM.APN ---
Subjective - Date & Time of Evaluation Date of Evaluation: 01/19/18 Time of Evaluation: 12:00 - Subjective Subjective: pt seen and examined at bedside Review of Systems - Neurological Neurological: Weakness (left arm ) Objective - Vital Signs/Intake and Output Vital Signs (last 24 hours): Temp Pulse Resp BP Pulse Ox 98 F 79 18 150/82 98 01/19/18 06:00 01/19/18 09:31 01/19/18 06:00 01/19/18 09:31 01/19/18 06:00 - Medications Medications: Current Medications Amlodipine Besylate (Norvasc) 10 mg PO DAILY [facility] Last Admin: 01/19/18 09:31 Dose: 10 mg Ascorbic Acid (Vitamin C 500 Mg Tab) 500 mg PO DAILY [facility] Last Admin: 01/19/18 09:32 Dose: 500 mg Aspirin (Ecotrin) 81 mg PO DAILY [facility] Last Admin: 01/19/18 09:32 Dose: 81 mg Clopidogrel Bisulfate (Plavix) 75 mg PO DAILY [facility] Last Admin: 01/19/18 09:32 Dose: 75 mg Ezetimibe (Zetia) 10 mg PO DAILY [facility] Last Admin: 01/19/18 09:31 Dose: 10 mg Gemfibrozil (Lopid) 600 mg PO DAILY [facility] Last Admin: 01/19/18 09:32 Dose: 600 mg Hydralazine HCl (Apresoline) 10 mg IVP Q6 PRN PRN Reason: FOR SBP>160 Last Admin: 01/18/18 05:47 Dose: 10 mg Losartan Potassium (Cozaar) 100 mg PO DAILY [facility] Last Admin: 01/19/18 09:31 Dose: 100 mg Metoprolol Tartrate (Lopressor) 100 mg PO BID [facility] Last Admin: 01/19/18 09:31 Dose: 100 mg Pantoprazole Sodium (Protonix Ec Tab) 40 mg PO DAILY [facility] Last Admin: 01/19/18 09:32 Dose: 40 mg Sertraline HCl (Zoloft) 50 mg PO DAILY [facility] Last Admin: 01/19/18 09:32 Dose: 50 mg - Labs Labs: 01/19/18 06:20 01/19/18 06:20 PT 12.2 SECONDS (9.4-12.5) 01/16/18 18:50 INR 1.07 01/16/18 18:50 APTT 27.4 Seconds (25.1-36.5) 01/16/18 18:50 - Constitutional Appears: Non-toxic, No Acute Distress - Eye Exam Pupil Exam: PERRL - ENT Exam Additional comments: left facial droop - Respiratory Exam Respiratory Exam: NORMAL BREATHING PATTERN - Cardiovascular Exam Cardiovascular Exam: +S1, +S2 - GI/Abdominal Exam GI & Abdominal Exam: Normal Bowel Sounds - Neurological Exam Neurological Exam: Alert, Awake Neuro motor strength exam: Left Upper Extremity: 3, Right Upper Extremity: 4, Left Lower Extremity: 4, Right Lower Extremity: 4 - Psychiatric Exam Additional comments: left facial droop Assessment and Plan - Assessment and Plan (Free Text) Plan: Pt is a 87 yr old female with pmh sig for htn, hld, cad with rca stent in 2014, anemia, chronic back pain, anxiety, bilateral knee replacement who was found altered and mumbling by her family, slurred speech and left facial droop and subsequently taken to the ER where a code stroke was called and pt is now undergoing neuro eval and cardiology eval with mRI showing subacute infarct in riht basal ganglia echo revealed EF 50% no ISD Speech lang recommendations noted P.T eval noted with acute rehab as recommendation and sw not rev'd regarding acceptance to [facility] discussed plan with attending, pt with new left arm weakness and neuro made aware, MRI ordered to asses for any acute developments /evolvement of cva pt not ready for transfer to rehab today per discussion, will reassess readiness tomorrow per discussion with medical team, will follow new MRI results
--- NOTE | 2018-01-19 16:02 | CP.PCM.PN ---
<Jose Elias Maxwell - Last Filed: 01/19/18 15:59> Subjective - Date & Time of Evaluation Date of Evaluation: 01/19/18 Time of Evaluation: 15:59 - Subjective Subjective: Neurology Progress Note for Dr. Taylor Patient seen and examined at bedside. Patient states she has difficulty moving her LUE today. Patient denies CP, SOB, n/v/d, abdominal pain, fever, chills. Objective - Vital Signs/Intake and Output Vital Signs (last 24 hours): Temp Pulse Resp BP Pulse Ox 97.6 F 67 18 135/66 96 01/19/18 15:52 01/19/18 15:52 01/19/18 15:52 01/19/18 15:52 01/19/18 15:52 - Medications Medications: Current Medications Amlodipine Besylate (Norvasc) 10 mg PO DAILY [facility] Last Admin: 01/19/18 09:31 Dose: 10 mg Ascorbic Acid (Vitamin C 500 Mg Tab) 500 mg PO DAILY [facility] Last Admin: 01/19/18 09:32 Dose: 500 mg Aspirin (Ecotrin) 81 mg PO DAILY [facility] Last Admin: 01/19/18 09:32 Dose: 81 mg Clopidogrel Bisulfate (Plavix) 75 mg PO DAILY [facility] Last Admin: 01/19/18 09:32 Dose: 75 mg Ezetimibe (Zetia) 10 mg PO DAILY [facility] Last Admin: 01/19/18 09:31 Dose: 10 mg Gemfibrozil (Lopid) 600 mg PO DAILY [facility] Last Admin: 01/19/18 09:32 Dose: 600 mg Hydralazine HCl (Apresoline) 10 mg IVP Q6 PRN PRN Reason: FOR SBP>160 Last Admin: 01/18/18 05:47 Dose: 10 mg Losartan Potassium (Cozaar) 100 mg PO DAILY [facility] Last Admin: 01/19/18 09:31 Dose: 100 mg Metoprolol Tartrate (Lopressor) 100 mg PO BID [facility] Last Admin: 01/19/18 09:31 Dose: 100 mg Pantoprazole Sodium (Protonix Ec Tab) 40 mg PO DAILY [facility] Last Admin: 01/19/18 09:32 Dose: 40 mg Sertraline HCl (Zoloft) 50 mg PO DAILY [facility] Last Admin: 01/19/18 09:32 Dose: 50 mg - Labs Labs: 01/19/18 06:20 01/19/18 06:20 PT 12.2 SECONDS (9.4-12.5) 01/16/18 18:50 INR 1.07 01/16/18 18:50 APTT 27.4 Seconds (25.1-36.5) 01/16/18 18:50 - Constitutional Appears: No Acute Distress - Head Exam Head Exam: NORMAL INSPECTION - Eye Exam Eye Exam: Normal appearance - ENT Exam ENT Exam: Normal Exam - Neck Exam Neck Exam: Normal Inspection - Respiratory Exam Respiratory Exam: Clear to Ausculation Bilateral - Cardiovascular Exam Cardiovascular Exam: REGULAR RHYTHM - GI/Abdominal Exam GI & Abdominal Exam: Soft, Normal Bowel Sounds - Extremities Exam Extremities Exam: Normal Inspection - Back Exam Back Exam: NORMAL INSPECTION - Neurological Exam Neurological Exam: Alert, Awake, Oriented x3 Neuro motor strength exam: Left Upper Extremity: 2/1, Right Upper Extremity: 5, Left Lower Extremity: 3, Right Lower Extremity: 5 Additional comments: Worsened left facial droop Worsened LUE strength 1/5 - Skin Skin Exam: Normal Color Assessment and Plan - Assessment and Plan (Free Text) Assessment: 87 yo F with PMH of HTN, HLD, chornic LE pain, anxiety presents to [facility] for AMS, dysarthria, and facial droop was found to have acute/subacute infarction at the right basal ganglia with a very small chronic infarct in the right parietal lobe on brain MRI. Patient strength and facial droop had been improving, however she has worsened LUE strength and facial droop today. Time of worsening is unknown. Plan: - CT head ordered, which showed questionable progression of her acute/subacute infarction at the right basal ganglia - CTA head/neck negative - MRI brain ordered - Cont antihypertensives - Cont ASA and Plavix - Neurochecks - PT/OT Patient seen and discussed in detail with Dr. Guerra. Berto Maxwell, DO PGY2 <David Taylor - Last Filed: 01/19/18 17:47> Objective - Vital Signs/Intake and Output Vital Signs (last 24 hours): Temp Pulse Resp BP Pulse Ox 97.6 F 67 18 135/66 96 01/19/18 15:52 01/19/18 17:35 01/19/18 15:52 01/19/18 17:35 01/19/18 15:52 - Medications Medications: Current Medications Amlodipine Besylate (Norvasc) 10 mg PO DAILY [facility] Last Admin: 01/19/18 09:31 Dose: 10 mg Ascorbic Acid (Vitamin C 500 Mg Tab) 500 mg PO DAILY [facility] Last Admin: 01/19/18 09:32 Dose: 500 mg Aspirin (Ecotrin) 81 mg PO DAILY [facility] Last Admin: 01/19/18 09:32 Dose: 81 mg Clopidogrel Bisulfate (Plavix) 75 mg PO DAILY [facility] Last Admin: 01/19/18 09:32 Dose: 75 mg Ezetimibe (Zetia) 10 mg PO DAILY [facility] Last Admin: 01/19/18 09:31 Dose: 10 mg Gemfibrozil (Lopid) 600 mg PO DAILY [facility] Last Admin: 01/19/18 09:32 Dose: 600 mg Hydralazine HCl (Apresoline) 10 mg IVP Q6 PRN PRN Reason: FOR SBP>160 Last Admin: 01/18/18 05:47 Dose: 10 mg Losartan Potassium (Cozaar) 100 mg PO DAILY [facility] Last Admin: 01/19/18 09:31 Dose: 100 mg Metoprolol Tartrate (Lopressor) 100 mg PO BID [facility] Last Admin: 01/19/18 17:35 Dose: 100 mg Pantoprazole Sodium (Protonix Ec Tab) 40 mg PO DAILY [facility] Last Admin: 01/19/18 09:32 Dose: 40 mg Sertraline HCl (Zoloft) 50 mg PO DAILY [facility] Last Admin: 01/19/18 09:32 Dose: 50 mg - Labs Labs: 01/19/18 06:20 01/19/18 06:20 PT 12.2 SECONDS (9.4-12.5) 01/16/18 18:50 INR 1.07 01/16/18 18:50 APTT 27.4 Seconds (25.1-36.5) 01/16/18 18:50 Attending/Attestation - Attestation I have personally seen and examined this patient.: Yes I have fully participated in the care of the patient.: Yes I have reviewed all pertinent clinical information, including history, physical exam and plan: Yes Notes (Text): 01/19/18 17:46 I agree with the assessment and plan. Will follow results. Likely progression of stroke.
--- NOTE | 2018-01-19 16:25 | CP.PCM.PN ---
<Maco Lynne - Last Filed: 01/19/18 16:22> Subjective - Date & Time of Evaluation Date of Evaluation: 01/19/18 Time of Evaluation: 16:22 - Subjective Subjective: Maco Lynne, PGY-1, Internal Medicine Progress Note for Dr. Orlando Patient seen and examined at bedside. Patient denies any overnight events. Patient is AAOx3. Patient complains of left sided weakness and left sided facial droop. Patient was found to have more left sided upper extremity weakness today. After consulting with neurology resident, we decided to order head CT for evaluation of worsening symptoms. Patient denies any headache, chest pain, heart palpitations, shortness of breath, nausea, vomiting, constipation, diarrhea, dysuria, and hematuria. 12-point ROS was negative except for what was mentioned above. Objective - Vital Signs/Intake and Output Vital Signs (last 24 hours): Temp Pulse Resp BP Pulse Ox 97.6 F 67 18 135/66 96 01/19/18 15:52 01/19/18 15:52 01/19/18 15:52 01/19/18 15:52 01/19/18 15:52 - Medications Medications: Current Medications Amlodipine Besylate (Norvasc) 10 mg PO DAILY [facility] Last Admin: 01/19/18 09:31 Dose: 10 mg Ascorbic Acid (Vitamin C 500 Mg Tab) 500 mg PO DAILY [facility] Last Admin: 01/19/18 09:32 Dose: 500 mg Aspirin (Ecotrin) 81 mg PO DAILY [facility] Last Admin: 01/19/18 09:32 Dose: 81 mg Clopidogrel Bisulfate (Plavix) 75 mg PO DAILY [facility] Last Admin: 01/19/18 09:32 Dose: 75 mg Ezetimibe (Zetia) 10 mg PO DAILY [facility] Last Admin: 01/19/18 09:31 Dose: 10 mg Gemfibrozil (Lopid) 600 mg PO DAILY [facility] Last Admin: 01/19/18 09:32 Dose: 600 mg Hydralazine HCl (Apresoline) 10 mg IVP Q6 PRN PRN Reason: FOR SBP>160 Last Admin: 01/18/18 05:47 Dose: 10 mg Losartan Potassium (Cozaar) 100 mg PO DAILY [facility] Last Admin: 01/19/18 09:31 Dose: 100 mg Metoprolol Tartrate (Lopressor) 100 mg PO BID [facility] Last Admin: 01/19/18 09:31 Dose: 100 mg Pantoprazole Sodium (Protonix Ec Tab) 40 mg PO DAILY [facility] Last Admin: 01/19/18 09:32 Dose: 40 mg Sertraline HCl (Zoloft) 50 mg PO DAILY [facility] Last Admin: 01/19/18 09:32 Dose: 50 mg - Labs Labs: 01/19/18 06:20 01/19/18 06:20 PT 12.2 SECONDS (9.4-12.5) 01/16/18 18:50 INR 1.07 01/16/18 18:50 APTT 27.4 Seconds (25.1-36.5) 01/16/18 18:50 - Constitutional Appears: Well, Non-toxic, No Acute Distress - Head Exam Head Exam: ATRAUMATIC, NORMAL INSPECTION, NORMOCEPHALIC - Eye Exam Eye Exam: EOMI, PERRL - Respiratory Exam Respiratory Exam: Clear to Ausculation Bilateral, NORMAL BREATHING PATTERN - Cardiovascular Exam Cardiovascular Exam: REGULAR RHYTHM - GI/Abdominal Exam GI & Abdominal Exam: Soft, Normal Bowel Sounds. absent: Tenderness - Neurological Exam Neurological Exam: Alert, Awake, CN II-XII Intact Neuro motor strength exam: Left Upper Extremity: 2/1, Right Upper Extremity: 5, Left Lower Extremity: 3, Right Lower Extremity: 5 Assessment and Plan - Assessment and Plan (Free Text) Assessment: 87 year old female with past medical history of hypertension, hyperlipidemia, anemia, CAD with RCA stent in 2014, chronic lower extremity pain, and anxiety presented with altered mental status, facial droop, and slurred speech. Patient was last seen normal at 18:00 on 11/16 and brought to [facility] by EMS. Head CT showed no acute intracranial abnormalities. No significant findings to account for clinical presentation. CTA showed no significant stenosis of the brain and neck. Trace atherosclerotic changes were seen at the bilateral carotid bulb regions as well as cavernous internal carotid arteries bilaterally. Left apical pulmonary nodules were seen. Bilateral thyroid nodules were found. Plan: Slurred speech and Facial Droop likely 2/2 to Acute Ischemic Stroke vs. TIA -Patient initially presented with an NIHSS stroke scale of 6. -Head CT on 01/16 showed no acute intracranial abnormalities. No significant findings to account for clinical presentation. -Head and neck CTA showed no significant stenosis of the brain and neck. Trace atherosclerotic changes were seen at the bilateral carotic bulb regions as well as cavernous internal carotid arteries bilaterally. 4 mm left apical pulmonary nodules were seen. Bilateral thyroid nodules were found. -MRI Head results on 01/16: acute infarction at the right basal ganglia is identified. 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 No mass effect; age related degenerative findings -Echocardiogram with bubble study results: EF: 50%, no intraseptal defect -Negative troponinsx3 -EKG: NSR with left axis deviation and nonspecific ST and T wave abnormality. HR: 84, QRS: 78, QTc: 423 -Repeat Head CT on 01/19: severe chronic periventricular white matter ischemic disease. Question evolving infarct in the right basal ganglia/thalamus. No acute hemorrhage. -Repeat Head and Neck CTA on 01/19: unremarkable -Follow up repeat MRI -Lipid panel: unremarkable except for TG of 268 -Neuro checks Q1 -Vital signs Q15 minutes -Swallow and speech evaluation concluded that patient has mild oral dysphagia; mild stasis post swallow of dry solids. L sided facial weakness that does not significantly affect eating or swallowing. Mild dysarthria, but speech is intelligible. Recommendations include soft regular consistency diet with thin liquids -Aspiration precautions -Fall precautions -Heart healthy diet -Aggressive physical therapy and occupational therapy. PT recommends acute rehabilitation and treatment for 3-5 times a week for 2 weeks. -TPa not given -Aspirin 81 mg and plavix 75 mg PO daily Left Upper Lobe Lung Mass -4mm mass seen on Head and Neck CTA -Follow up outpatient CT Incidental Thyroid Nodule -Thyroid Nodule seen on Head and Neck CTA -TSH: 0.9 -Unremarkable T3 and T4. -Follow up with outpatient thyroid ultrasound. Normocytic Anemia -Hgb: 9.7 from 10.2 -Iron: 80 -TIBC: 365 -Ferritin: 48.6 -Folate: 14.8 -Consider ordering peripheral blood smear. Hypertension -Systolic blood pressures ranging from 135/66 -HR: 67 -Continue with cozaar, apresoline. Increased lopressor to 100 mg BID. Started amlodipine 10 mg daily as per cardiology. Hyperlipidemia -Lipid panel: unremarkable except for TG of 268 -Continue with lopid, zetia. Elevated alkaline phosphatase -ALP: 128 -Continue to monitor History of General Anxiety Disorder -Continue home sertraline GI prophylaxis: protonix 40 mg daily DVT prophylaxis: SCDs Disposition: discharge to acute rehabilitation, possibly [place] after patient's acute medical conditions have resolved. Patient seen and evaluated with Dr. Orlando. <Alex Orlando - Last Filed: 01/19/18 17:06> Objective - Vital Signs/Intake and Output Vital Signs (last 24 hours): Temp Pulse Resp BP Pulse Ox 97.6 F 67 18 135/66 96 01/19/18 15:52 01/19/18 15:52 01/19/18 15:52 01/19/18 15:52 01/19/18 15:52 - Medications Medications: Current Medications Amlodipine Besylate (Norvasc) 10 mg PO DAILY [facility] Last Admin: 01/19/18 09:31 Dose: 10 mg Ascorbic Acid (Vitamin C 500 Mg Tab) 500 mg PO DAILY [facility] Last Admin: 01/19/18 09:32 Dose: 500 mg Aspirin (Ecotrin) 81 mg PO DAILY [facility] Last Admin: 01/19/18 09:32 Dose: 81 mg Clopidogrel Bisulfate (Plavix) 75 mg PO DAILY [facility] Last Admin: 01/19/18 09:32 Dose: 75 mg Ezetimibe (Zetia) 10 mg PO DAILY [facility] Last Admin: 01/19/18 09:31 Dose: 10 mg Gemfibrozil (Lopid) 600 mg PO DAILY [facility] Last Admin: 01/19/18 09:32 Dose: 600 mg Hydralazine HCl (Apresoline) 10 mg IVP Q6 PRN PRN Reason: FOR SBP>160 Last Admin: 01/18/18 05:47 Dose: 10 mg Losartan Potassium (Cozaar) 100 mg PO DAILY [facility] Last Admin: 01/19/18 09:31 Dose: 100 mg Metoprolol Tartrate (Lopressor) 100 mg PO BID [facility] Last Admin: 01/19/18 09:31 Dose: 100 mg Pantoprazole Sodium (Protonix Ec Tab) 40 mg PO DAILY [facility] Last Admin: 01/19/18 09:32 Dose: 40 mg Sertraline HCl (Zoloft) 50 mg PO DAILY [facility] Last Admin: 01/19/18 09:32 Dose: 50 mg - Labs Labs: 01/19/18 06:20 01/19/18 06:20 PT 12.2 SECONDS (9.4-12.5) 01/16/18 18:50 INR 1.07 01/16/18 18:50 APTT 27.4 Seconds (25.1-36.5) 01/16/18 18:50 Attending/Attestation - Attestation I have personally seen and examined this patient.: Yes I have fully participated in the care of the patient.: Yes I have reviewed all pertinent clinical information, including history, physical exam and plan: Yes Notes (Text): Patient seen and examined with the residents noted to have LUE/LLE weakness - improving as per medical staff will need aggressive PT/OT - d/c to rehab once bed available Plan of care made aware to the patient and her daughter in law at bedside. continue with asa/statin
--- NOTE | 2018-01-19 20:17 | PN ---
DATE: 01/19/2018 LOCATION: The patient in room 568, bed 1. Complete note has been already written by Lisa Calvo APN. This is an additional note. SUBJECTIVE: The patient admitted with CVA and found to have slurring speech and drooping and weakness on the left lower and upper extremity. The patient denies any chest pain, shortness of breath, or palpitation. The patient has history of coronary artery angioplasty on 05/21/2014 at [facility] with stent insertion. The patient still has drooping of the face and speech is getting better. The patient is continuing losartan 100 mg p.o. daily, aspirin 81 daily, Lopid 600 daily, metoprolol 100 b.i.d., amlodipine 10 daily, Plavix 75 daily, Protonix 40 daily, Zetia 10 mg daily, Zoloft 50 mg daily. We will follow closely. Boaz Tobar MD
--- NOTE | 2018-01-20 06:41 | CP.PCM.PN ---
Subjective - Date & Time of Evaluation Date of Evaluation: 01/20/18 Time of Evaluation: 06:20 - Subjective Subjective: No distress, lying in bed, open eyes to name calling Reason for consultation and follow up: Cardiac follow up post stroke,history of coronary artery disease post stents, hypertension, hyperlipidemia. Seen and examined by me and Dr. Tobar Objective - Vital Signs/Intake and Output Vital Signs (last 24 hours): Temp Pulse Resp BP Pulse Ox 98 F 68 18 134/69 96 01/19/18 22:01 01/19/18 22:01 01/19/18 22:01 01/19/18 22:01 01/19/18 22:01 Intake and Output: 01/19/18 01/20/18 18:59 06:59 Intake Total 1000 540 Output Total 500 800 Balance 500 -260 - Medications Medications: Current Medications Amlodipine Besylate (Norvasc) 10 mg PO DAILY [facility] Last Admin: 01/19/18 09:31 Dose: 10 mg Ascorbic Acid (Vitamin C 500 Mg Tab) 500 mg PO DAILY [facility] Last Admin: 01/19/18 09:32 Dose: 500 mg Aspirin (Ecotrin) 81 mg PO DAILY [facility] Last Admin: 01/19/18 09:32 Dose: 81 mg Clopidogrel Bisulfate (Plavix) 75 mg PO DAILY [facility] Last Admin: 01/19/18 09:32 Dose: 75 mg Ezetimibe (Zetia) 10 mg PO DAILY [facility] Last Admin: 01/19/18 09:31 Dose: 10 mg Gemfibrozil (Lopid) 600 mg PO DAILY [facility] Last Admin: 01/19/18 09:32 Dose: 600 mg Hydralazine HCl (Apresoline) 10 mg IVP Q6 PRN PRN Reason: FOR SBP>160 Last Admin: 01/18/18 05:47 Dose: 10 mg Losartan Potassium (Cozaar) 100 mg PO DAILY [facility] Last Admin: 01/19/18 09:31 Dose: 100 mg Metoprolol Tartrate (Lopressor) 100 mg PO BID [facility] Last Admin: 01/19/18 17:35 Dose: 100 mg Pantoprazole Sodium (Protonix Ec Tab) 40 mg PO DAILY [facility] Last Admin: 01/19/18 09:32 Dose: 40 mg Sertraline HCl (Zoloft) 50 mg PO DAILY [facility] Last Admin: 01/19/18 09:32 Dose: 50 mg - Labs Labs: 01/19/18 06:20 01/19/18 06:20 PT 12.2 SECONDS (9.4-12.5) 01/16/18 18:50 INR 1.07 01/16/18 18:50 APTT 27.4 Seconds (25.1-36.5) 01/16/18 18:50 - Constitutional Appears: Non-toxic, No Acute Distress - Head Exam Head Exam: NORMAL INSPECTION, NORMOCEPHALIC - Eye Exam Eye Exam: Normal appearance - ENT Exam ENT Exam: Mucous Membranes Dry - Respiratory Exam Respiratory Exam: Decreased Breath Sounds, NORMAL BREATHING PATTERN - Cardiovascular Exam Cardiovascular Exam: +S1, +S2 - GI/Abdominal Exam GI & Abdominal Exam: Soft, Normal Bowel Sounds - Extremities Exam Additional comments: left sided weakness - Neurological Exam Neurological Exam: Alert, Awake Additional comments: left facial droop - Psychiatric Exam Psychiatric exam: Normal Affect, Normal Mood - Skin Skin Exam: Dry, Normal Color, Warm Assessment and Plan - Assessment and Plan (Free Text) Assessment: An 87 year old female who came in to the ER due to altered mental status, slurred speech and facial droop. History of hypertension, hyperlipidemia, chronic lower extremity pain,bilateral knee replacements, coronary artery disease post stent of RCA and moderate disease of LAD (last cardiac cath 05/2014 at [facility]).Admitted for stroke, no TPA given. Neuro on consult. Yesterday, CT scan of head done and seems like there is questionable progression of the infarct. For MRI of the brain today. Plan: No distress, awake Heart rate controlled Blood pressure controlled Cardiac status stable For MRI of the brain today, CT of head yesterday showed questionable progression of infarct On Norvasc 10 mg daily,ASA 81 mg daily, Plavix 75 mg daily, Lopid 600 mg daily, Hydralazine IV PRN, Cozaar 100 mg daily, Lopressor 100 mg BID Continue current medications Continue current treatment Speech and Physical therapy Rehab placement/discharge planning Will follow up Plan and treatment discussed with Dr. Tobar
[2018-01-20 07:11] LABS: BASO # 0.01 K/mm3 (0.0-2.0); BASO % 0.1 % (0.0-3.0); EOS # 0.1 (0.0-0.7); EOS % 1.1 % (1.5-5.0); GRAN # 7.9 (1.4-6.5); GRAN % 86.3 % (50.0-68.0); HEMOGLOBIN 10.4 g/dL (12.0-16.0); LYMPH # 0.7 (1.2-3.4); LYMPH % 7.1 % (22.0-35.0); MEAN CELL VOLUME 89.8 fl (80.0-105.0); MEAN CORPUSCULAR HEMOGLOBIN 28.6 pg (25.0-35.0); MEAN CORPUSCULAR HGB CONC 31.8 g/dl (31.0-37.0); MEAN PLATELET VOLUME 9.4 fl (7.0-11.0); MONO # 0.5 (0.1-0.6); MONO % 5.4 % (1.0-6.0); RBC 3.64 10^6/uL (3.5-6.1); RED CELL DISTRIBUTION WIDTH 14.4 % (11.5-14.5); WHITE BLOOD COUNT 9.2 10^3/uL (4.5-11.0)
[2018-01-20 07:51] LABS: ALB/GLOB RATIO 1.2 (1.1-1.8); ALBUMIN 3.7 g/dL (3.0-4.8); CALCIUM 9.3 mg/dL (8.4-10.5)
[2018-01-20] MEDS: Pantoprazole 40 mg EC Tab PO SCH (09:09)
--- NOTE | 2018-01-20 09:27 | CP.PCM.DIS ---
Provider - Provider Date of Admission: 01/16/18 19:45 Attending physician: Elayne Phillips MD Primary care physician: Boaz Tobar MD Consults: 01/16/18 18:44 Stroke Team Consult Stat Comment: Consulting Provider: Neurohospitalist Consulting Physician: NEUROHOSP Neurohospitalist for Consult: David Taylor Neurohospitalist for Consult: aLrry Guerra Reason for Consult: code [email or web address] 01/16/18 20:36 Physician Consult Routine Comment: Consulting Provider: Larry Guerra Consulting Physician: Larry Guerra Reason for Consult: ischemic stroke 01/17/18 09:38 Consult [Physician Consult] Routine Comment: Consulting Provider: Dori Olson Consulting Physician: Dori Olson Reason for Consult: goals of care Time Spent in preparation of Discharge (in minutes): 60 Diagnosis - Discharge Diagnosis (1) Stroke Status: Acute Hospital Course - Lab Results Lab Results: Micro Results 01/16/18 23:10 Urine,Marcos Urine Culture - Final Gram Positive Reagan Most Recent Lab Values WBC 9.2 10^3/uL (4.5-11.0) 01/20/18 06:30 RBC 3.64 10^6/uL (3.5-6.1) 01/20/18 06:30 Hgb 10.4 g/dL (12.0-16.0) L 01/20/18 06:30 Hct 32.7 % (36.0-48.0) L 01/20/18 06:30 MCV 89.8 fl (80.0-105.0) 01/20/18 06:30 MCH 28.6 pg (25.0-35.0) 01/20/18 06:30 MCHC 31.8 g/dl (31.0-37.0) 01/20/18 06:30 RDW 14.4 % (11.5-14.5) 01/20/18 06:30 Plt Count 237 10^3/uL (120.0-450.0) 01/20/18 06:30 MPV 9.4 fl (7.0-11.0) 01/20/18 06:30 Gran % 86.3 % (50.0-68.0) H 01/20/18 06:30 Lymph % (Auto) 7.1 % (22.0-35.0) L 01/20/18 06:30 [place] % (Auto) 5.4 % (1.0-6.0) 01/20/18 06:30 Eos % (Auto) 1.1 % (1.5-5.0) L 01/20/18 06:30 Baso % (Auto) 0.1 % (0.0-3.0) 01/20/18 06:30 Gran # 7.90 (1.4-6.5) H 01/20/18 06:30 Lymph # (Auto) 0.7 (1.2-3.4) L 01/20/18 06:30 [place] # (Auto) 0.5 (0.1-0.6) 01/20/18 06:30 Eos # (Auto) 0.1 (0.0-0.7) 01/20/18 06:30 Baso # (Auto) 0.01 K/mm3 (0.0-2.0) 01/20/18 06:30 PT 12.2 SECONDS (9.4-12.5) 01/16/18 18:50 INR 1.07 01/16/18 18:50 APTT 27.4 Seconds (25.1-36.5) 01/16/18 18:50 Sodium 137 mmol/L (132-148) 01/20/18 06:30 Potassium 4.1 mmol/L (3.6-5.0) 01/20/18 06:30 Chloride 106 mmol/L (98-107) 01/20/18 06:30 Carbon Dioxide 21 mmol/L (21-33) 01/20/18 06:30 Anion Gap 14 (10-20) 01/20/18 06:30 BUN 24 mg/dL (7-21) H 01/20/18 06:30 Creatinine 1.2 mg/dl (0.7-1.2) 01/20/18 06:30 Est GFR ( Amer) 51 01/20/18 06:30 Est GFR (Non-Af Amer) 42 01/20/18 06:30 POC Glucose (mg/dL) 121 mg/dL (65-110) H 01/17/18 16:38 Random Glucose 133 mg/dL (70-110) H 01/20/18 06:30 Hemoglobin A1c 6.0 % (4.2-6.5) 01/16/18 18:50 Calcium 9.3 mg/dL (8.4-10.5) 01/20/18 06:30 Phosphorus 2.9 mg/dL (2.5-4.5) 01/18/18 05:20 Magnesium 2.0 mg/dL (1.7-2.2) 01/18/18 05:20 Iron 80 ug/dL (45-180) 01/16/18 23:11 TIBC 365 ug/dL (265-497) 01/16/18 23:11 % Saturation 22 % (20-55) 01/16/18 23:11 Ferritin 48.6 ng/mL 01/16/18 23:11 Total Bilirubin 0.7 mg/dL (0.2-1.3) 01/20/18 06:30 AST 33 U/L (14-36) 01/20/18 06:30 ALT 28 U/L (7-56) 01/20/18 06:30 Alkaline Phosphatase 142 U/L (38-126) H 01/20/18 06:30 Troponin I 0.05 ng/mL 01/17/18 05:40 Total Protein 6.8 g/dL (5.8-8.3) 01/20/18 06:30 Albumin 3.7 g/dL (3.0-4.8) 01/20/18 06:30 Globulin 3.2 gm/dL 01/20/18 06:30 Albumin/Globulin Ratio 1.2 (1.1-1.8) 01/20/18 06:30 Triglycerides 268 mg/dL (35-160) H 01/16/18 18:50 Cholesterol 194 mg/dL (130-200) 01/16/18 18:50 LDL Cholesterol Direct 54 mg/dL (0-129) 01/16/18 18:50 HDL Cholesterol 39 mg/dL (29-60) 01/16/18 18:50 Vitamin B12 903 pg/mL (239-931) 01/16/18 19:00 Folate 14.8 ng/mL 01/16/18 23:11 Thyroxine (T4) 7.6 ug/dL (5.5-11.0) 01/18/18 05:20 Total T3 1.15 ng/mL (0.97-1.69) 01/18/18 05:20 TSH 3rd Generation 0.55 mIU/mL (0.46-4.68) 01/18/18 05:20 Urine Color Yellow (YELLOW) 01/16/18 22:50 Urine Appearance Clear (CLEAR) 01/16/18 22:50 Urine pH 6.0 (4.7-8.0) 01/16/18 22:50 Ur Specific [place] 1.015 (1.005-1.035) 01/16/18 22:50 Urine Protein Negative mg/dL (<30 mg/dL) 01/16/18 22:50 Urine Glucose (UA) Negative mg/dL (NEGATIVE) 01/16/18 22:50 Urine Ketones Negative mg/dL (NEGATIVE) 01/16/18 22:50 Urine Blood Trace-intact (NEGATIVE) H 01/16/18 22:50 Urine Nitrate Negative (NEGATIVE) 01/16/18 22:50 Urine Bilirubin Negative (NEGATIVE) 01/16/18 22:50 Urine Urobilinogen 0.2 E.U./dL (<1 E.U./dL) 01/16/18 22:50 Ur Leukocyte Esterase Negative Wili/uL (NEGATIVE) 01/16/18 22:50 Urine RBC 0 - 2 /hpf (0-2) 01/16/18 22:50 Urine WBC 0 - 2 /hpf (0-6) 01/16/18 22:50 Ur Epithelial Cells 0 - 2 /hpf (0-5) 01/16/18 22:50 Urine Bacteria Small (NEG) 01/16/18 22:50 Blood Type O POSITIVE 01/16/18 19:00 Blood Type Confirm O POSITIVE 01/16/18 18:45 Antibody Screen Negative 01/16/18 19:00 BBK History Checked No verified bt 01/16/18 19:00 - Hospital Course Hospital Course: Maco Lynne, PGY-1, Internal Medicine Discharge Summary for Dr. Orlando 87 year old female with past medical history of hypertension, hyperlipidemia, anemia, CAD with RCA stent in 2014, chronic lower extremity pain, and anxiety presented with altered mental status, facial droop, and slurred speech. Patient was last seen normal at 18:00 on 11/16 and brought to [facility] by EMS. Patient initially presented with an NIHSS stroke scale of 6. Head CT on 01/16 showed no acute intracranial abnormalities. No significant findings to account for clinical presentation. Head and neck CTA showed no significant stenosis of the brain and neck. Trace atherosclerotic changes were seen at the bilateral carotic bulb regions as well as cavernous internal carotid arteries bilaterally. MRI Head results on 01/16 showed acute infarction at the right basal ganglia is identified. 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 No mass effect; age related degenerative findings. Echocardiogram with bubble study results showed EF: 50%, no intraseptal defect. Troponinsx3 were negative. EKG showed NSR. Patient was given loading dose of aspirin and patient was started on aspirin and plavix. TPa was not given on admission. Patient was initially very weak and but improved significantly during her first day of her hospital admission. On 01/19, patient was found to have more left sided upper extremity weakness. After conferring with neurology resident, repeat head CT and head and neck CTA were ordered. Repeat Head CT showed severe chronic periventricular white matter ischemic disease. Question evolving infarct in the right basal ganglia/thalamus. No acute hemorrhage. Repeat Head and Neck CTA was unremarkable. Brain MRI was ordered which showed interval increase in the size of diffusion restriction at the right basal ganglia compared to the previous exam with interval appearance of mild mass effect on the right lateral ventricle. No evidence of acute hemorrhage. During her hospital course, patient has gotten aggressive physical therapy and occupation therapy, had aspiration precautions, fall precautions and was deemed to be ok to have soft regular consistency diet as per speech and swallow evaluation. Patient had incidental left upper lobe lung mass on head and neck CTA, and patient was advised to follow up outpatient for further work up. Incidental thyroid nodule was seen on CTA. TSH, T3, and T4 were unremarkable. Patient was advised to have outpatient thyroid ultrasound. Patient was deemed stable and ready for discharge. Patient will be discharged to [facility] for acute rehabilitation. Patient should continue to get aggressive physical and occupational therapy. Patient should follow up with hat and cap parts cutter hand for incidental lung mass and lasting room supervisor for incidental thyroid mass. Please take all medications as prescribed. Patient was told to return to the emergency department if she had any recurring symptoms. This is a brief summary of the hospital course. Please refer to hospital documentation for further details. - Date & Time of H&P Date of H&P: 01/16/18 Time of H&P: 20:25 Discharge Exam - Head Exam Head Exam: NORMAL INSPECTION, NORMOCEPHALIC - Eye Exam Eye Exam: EOMI Pupil Exam: PERRL - Respiratory Exam Respiratory Exam: Clear to PA & Lateral, NORMAL BREATHING PATTERN - Cardiovascular Exam Cardiovascular Exam: REGULAR RHYTHM - GI/Abdominal Exam GI & Abdominal Exam: Normal Bowel Sounds, Unremarkable - Extremities Exam Extremities exam: normal inspection - Neurological Exam Neurological exam: Alert, CN II-XII Intact Additional comments: facial droop, +1/5 strength in left upper extremity, +3/5 in left lower extremity - Skin Skin Exam: Dry, Intact Discharge Plan - Discharge Medications Prescriptions: amLODIPine [Norvasc] 10 mg PO DAILY #30 tab Clopidogrel [Plavix] 75 mg PO DAILY #30 tab Ezetimibe [Zetia] 10 mg PO DAILY #30 tab Gemfibrozil [Lopid] 600 mg PO DAILY #30 tab Losartan [Cozaar] 100 mg PO DAILY #30 tab Metoprolol Tartrate [Lopressor] 100 mg PO BID #60 tab - Follow Up Plan Condition: STABLE Disposition: HOME/ ROUTINE Instructions: Stroke Additional Instructions: You are being discharged to the acute rehabilitation facility. Please follow up with PCP within one week. Please take all daily medications as prescribed. Please return to the emergency department if you have any new concerning or worsening symptoms. Referrals: Boaz Tobar MD [Primary Care Provider] -
--- NOTE | 2018-01-20 11:10 | CP.PCM.APN ---
Subjective - Date & Time of Evaluation Date of Evaluation: 01/20/18 Time of Evaluation: 07:50 - Subjective Subjective: pt seen and examined at bedside. She is in no acute distress. Sleeping but arousable. Objective - Vital Signs/Intake and Output Vital Signs (last 24 hours): Temp Pulse Resp BP Pulse Ox 97.6 F 88 14 169/75 H 96 01/20/18 06:00 01/20/18 09:08 01/20/18 08:30 01/20/18 09:08 01/20/18 08:30 Intake and Output: 01/20/18 01/20/18 06:59 18:59 Intake Total 540 Output Total 800 Balance -260 - Medications Medications: Current Medications Amlodipine Besylate (Norvasc) 10 mg PO DAILY [facility] Last Admin: 01/20/18 09:08 Dose: 10 mg Ascorbic Acid (Vitamin C 500 Mg Tab) 500 mg PO DAILY [facility] Last Admin: 01/20/18 09:09 Dose: 500 mg Aspirin (Ecotrin) 81 mg PO DAILY [facility] Last Admin: 01/20/18 09:09 Dose: 81 mg Clopidogrel Bisulfate (Plavix) 75 mg PO DAILY [facility] Last Admin: 01/20/18 09:09 Dose: 75 mg Ezetimibe (Zetia) 10 mg PO DAILY [facility] Last Admin: 01/20/18 09:09 Dose: 10 mg Gemfibrozil (Lopid) 600 mg PO DAILY [facility] Last Admin: 01/20/18 09:09 Dose: 600 mg Hydralazine HCl (Apresoline) 10 mg IVP Q6 PRN PRN Reason: FOR SBP>160 Last Admin: 01/20/18 07:25 Dose: 10 mg Losartan Potassium (Cozaar) 100 mg PO DAILY [facility] Last Admin: 01/20/18 09:09 Dose: 100 mg Metoprolol Tartrate (Lopressor) 100 mg PO BID [facility] Last Admin: 01/20/18 09:08 Dose: 100 mg Pantoprazole Sodium (Protonix Ec Tab) 40 mg PO DAILY [facility] Last Admin: 01/20/18 09:09 Dose: 40 mg Sertraline HCl (Zoloft) 50 mg PO DAILY [facility] Last Admin: 01/20/18 09:09 Dose: 50 mg - Labs Labs: 01/20/18 06:30 01/20/18 06:30 PT 12.2 SECONDS (9.4-12.5) 01/16/18 18:50 INR 1.07 01/16/18 18:50 APTT 27.4 Seconds (25.1-36.5) 01/16/18 18:50 - Constitutional Appears: No Acute Distress - Head Exam Additional comments: L facial droop - Neck Exam Neck Exam: Normal Inspection - Respiratory Exam Respiratory Exam: Clear to Ausculation Bilateral, NORMAL BREATHING PATTERN - Cardiovascular Exam Cardiovascular Exam: REGULAR RHYTHM, +S1, +S2 - GI/Abdominal Exam GI & Abdominal Exam: Soft, Normal Bowel Sounds - Rectal Exam Rectal Exam: Deferred - Neurological Exam Neuro motor strength exam: Left Lower Extremity: 2/1, Right Lower Extremity: 4 Additional comments: limited exam, pt unable to follow all commands Assessment and Plan - Assessment and Plan (Free Text) Assessment: Pt is a 87 y.o. female admitted for acute/subacute infarction of R basal ganglia. Plan: Concern for progression of acute/subacute infarction at R basal ganglia. Repeat MRI Brain showed interval increase in size of diffusion restriction at R basal ganglia. No acute intracranial hemorrhage. Per Neuro, will hold DC today and possible discharge in AM. SW aware. Neuro on consult Meds per MAR Physical therapy recommends acute rehab Per SW, pt accepted in [facility] Will continue to follow
--- NOTE | 2018-01-20 11:31 | MRI ---
Date of service: 01/20/2018 PROCEDURE: MRI BRAIN WITHOUT CONTRAST HISTORY: cva COMPARISON: Comparison is made with the previous study dated 01/17/2018 TECHNIQUE: Multiplanar, multisequence MR images of the brain were obtained without intravenous contrast enhancement. FINDINGS: HEMORRHAGE: No evidence of intracranial hematoma or significant hemorrhagic conversion of right basal ganglia infarct. DWI: Interval increase in the size of diffusion restriction at right lentiform nucleus right thalamus and adjacent right temporal frontal lobes compared to the previous exam BRAIN PARENCHYMA: Mild mass effect on the right lateral ventricle likely due to edema adjacent to the acute infarct in the right basal ganglia. Volume loss and chronic microvascular white matter ischemic disease are again noted. VENTRICLES: Unremarkable. No hydrocephalus. CRANIUM: Unremarkable. ORBITS: Grossly unremarkable. PARANASAL SINUSES/MASTOIDS: Clear VASCULAR SYSTEM: Skull base flow voids intact. OTHER FINDINGS: None. IMPRESSION: Interval increase in the size of diffusion restriction at the right basal ganglia compared to the previous exam with interval appearance of mild mass effect on the right lateral ventricle. No evidence of acute intracranial hemorrhage. No evidence of other interval changes.
--- NOTE | 2018-01-20 12:56 | CP.PCM.PN ---
Subjective - Date & Time of Evaluation Date of Evaluation: 01/20/18 Time of Evaluation: 12:52 - Subjective Subjective: Maco Lynne, PGY-1, Internal Medicine Progress Note for Dr. Orlando Patient seen and examined at bedside. Patient denies any overnight events. Patient is AAOx3. Patient complains of left sided weakness and left sided facial droop. Patient was found to be sleepy but arousable on presentation. Patient denies any headache, chest pain, heart palpitations, shortness of breath, nausea, vomiting, constipation, diarrhea, dysuria, and hematuria. 12-point ROS was negative except for what was mentioned above. Objective - Vital Signs/Intake and Output Vital Signs (last 24 hours): Temp Pulse Resp BP Pulse Ox 97.6 F 88 14 169/75 H 96 01/20/18 06:00 01/20/18 09:08 01/20/18 08:30 01/20/18 09:08 01/20/18 08:30 Intake and Output: 01/20/18 01/20/18 06:59 18:59 Intake Total 540 Output Total 800 Balance -260 - Medications Medications: Current Medications Amlodipine Besylate (Norvasc) 10 mg PO DAILY [facility] Last Admin: 01/20/18 09:08 Dose: 10 mg Ascorbic Acid (Vitamin C 500 Mg Tab) 500 mg PO DAILY [facility] Last Admin: 01/20/18 09:09 Dose: 500 mg Aspirin (Ecotrin) 81 mg PO DAILY [facility] Last Admin: 01/20/18 09:09 Dose: 81 mg Clopidogrel Bisulfate (Plavix) 75 mg PO DAILY [facility] Last Admin: 01/20/18 09:09 Dose: 75 mg Ezetimibe (Zetia) 10 mg PO DAILY [facility] Last Admin: 01/20/18 09:09 Dose: 10 mg Gemfibrozil (Lopid) 600 mg PO DAILY [facility] Last Admin: 01/20/18 09:09 Dose: 600 mg Hydralazine HCl (Apresoline) 10 mg IVP Q6 PRN PRN Reason: FOR SBP>160 Last Admin: 01/20/18 07:25 Dose: 10 mg Losartan Potassium (Cozaar) 100 mg PO DAILY [facility] Last Admin: 01/20/18 09:09 Dose: 100 mg Metoprolol Tartrate (Lopressor) 100 mg PO BID [facility] Last Admin: 01/20/18 09:08 Dose: 100 mg Pantoprazole Sodium (Protonix Ec Tab) 40 mg PO DAILY [facility] Last Admin: 01/20/18 09:09 Dose: 40 mg Sertraline HCl (Zoloft) 50 mg PO DAILY [facility] Last Admin: 01/20/18 09:09 Dose: 50 mg - Labs Labs: 01/20/18 06:30 01/20/18 06:30 PT 12.2 SECONDS (9.4-12.5) 01/16/18 18:50 INR 1.07 01/16/18 18:50 APTT 27.4 Seconds (25.1-36.5) 01/16/18 18:50 - Constitutional Appears: Well, Non-toxic, No Acute Distress, Other (sleepy but arousable) - Head Exam Head Exam: ATRAUMATIC, NORMAL INSPECTION, NORMOCEPHALIC - Eye Exam Eye Exam: EOMI Pupil Exam: PERRL - Respiratory Exam Respiratory Exam: Clear to Ausculation Bilateral, NORMAL BREATHING PATTERN - Cardiovascular Exam Cardiovascular Exam: REGULAR RHYTHM - Extremities Exam Extremities Exam: Full ROM - Neurological Exam Neurological Exam: Alert, Awake, CN II-XII Intact, Oriented x3 Neuro motor strength exam: Left Upper Extremity: 2/1, Right Upper Extremity: 5, Left Lower Extremity: 3, Right Lower Extremity: 5 - Skin Skin Exam: Dry, Intact Assessment and Plan (1) Stroke Status: Acute - Assessment and Plan (Free Text) Assessment: 87 year old female with past medical history of hypertension, hyperlipidemia, anemia, CAD with RCA stent in 2015, chronic lower extremity pain, and anxiety presented with altered mental status, facial droop, and slurred speech. Patient was last seen normal at 18:00 on 11/16 and brought to [facility] by EMS. Head CT showed no acute intracranial abnormalities. No significant findings to account for clinical presentation. CTA showed no significant stenosis of the brain and neck. Trace atherosclerotic changes were seen at the bilateral carotid bulb regions as well as cavernous internal carotid arteries bilaterally. Left apical pulmonary nodules were seen. Bilateral thyroid nodules were found. Plan: Slurred speech and Facial Droop likely 2/2 to Acute Ischemic Stroke vs. TIA -Patient initially presented with an NIHSS stroke scale of 6. -Head CT on 01/16 showed no acute intracranial abnormalities. No significant findings to account for clinical presentation. -Head and neck CTA showed no significant stenosis of the brain and neck. Trace atherosclerotic changes were seen at the bilateral carotic bulb regions as well as cavernous internal carotid arteries bilaterally. 4 mm left apical pulmonary nodules were seen. Bilateral thyroid nodules were found. -MRI Head results on 01/16: acute infarction at the right basal ganglia is identified. 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 No mass effect; age related degenerative findings -Echocardiogram with bubble study results: EF: 50%, no intraseptal defect -Negative troponinsx3 -EKG: NSR with left axis deviation and nonspecific ST and T wave abnormality. HR: 84, QRS: 78, QTc: 423 -Repeat Head CT on 01/19: severe chronic periventricular white matter ischemic disease. Question evolving infarct in the right basal ganglia/thalamus. No acute hemorrhage. -Repeat Head and Neck CTA on 01/19: unremarkable -Brain MRI was ordered which showed interval increase in the size of diffusion restriction at the right basal ganglia compared to the previous exam with interval appearance of mild mass effect on the right lateral ventricle. No evidence of acute hemorrhage. -Patient was found to be more sleepy but arousable on examination today. -Lipid panel: unremarkable except for TG of 268 -Neuro checks Q1 -Vital signs Q15 minutes -Swallow and speech evaluation concluded that patient has mild oral dysphagia; mild stasis post swallow of dry solids. L sided facial weakness that does not significantly affect eating or swallowing. Mild dysarthria, but speech is intelligible. Recommendations include soft regular consistency diet with thin liquids -Aspiration precautions -Fall precautions -Heart healthy diet -Aggressive physical therapy and occupational therapy. PT recommends acute re habilitation and treatment for 3-5 times a week for 2 weeks. -TPa not given -Aspirin 81 mg and plavix 75 mg PO daily -Patient will not be discharged today. Patient's MRI showed concering findings for interval increase in the size of diffusion restriction at the right basal ganglia compared to the previous exam. Patient was sleepy but arousable on examination. As a result of her clinical and imaging findings, neurology recommended that patient should have permissive hypertension and will start IV fluids on her today. Left Upper Lobe Lung Mass -4mm mass seen on Head and Neck CTA -Follow up outpatient CT Incidental Thyroid Nodule -Thyroid Nodule seen on Head and Neck CTA -TSH: 0.9 -Unremarkable T3 and T4. -Follow up with outpatient thyroid ultrasound. Normocytic Anemia -Hgb: 10.4 from 9.7 -Iron: 80 -TIBC: 365 -Ferritin: 48.6 -Folate: 14.8 -Consider ordering peripheral blood smear. Hypertension -Systolic blood pressures ranging from 169/75 -HR: 88 -Hold with cozaar, apresoline, lopressor, and amlodipine for permissive hypertension due to worsening of ischemic stroke. We want to ensure that patient's brain is perfusing well. Hyperlipidemia -Lipid panel: unremarkable except for TG of 268 -Continue with lopid, zetia. Elevated alkaline phosphatase -ALP: 142 -Continue to monitor History of General Anxiety Disorder -Continue home sertraline GI prophylaxis: protonix 40 mg daily DVT prophylaxis: SCDs Disposition: Patient will not be discharged today. Patient's MRI showed concering findings for interval increase in the size of diffusion restriction at the right basal ganglia compared to the previous exam. Patient was sleepy but arousable on examination. As a result of her clinical and imaging findings, neurology recommended that patient should have permissive hypertension and will start IV fluids on her today. Patient seen and evaluated with Dr. Orlando.
[2018-01-20] MEDS ORDERED: Sodium Chloride 0.9% 1,000 ML IV SCH (13:30)
--- NOTE | 2018-01-20 13:32 | CP.PCM.PN ---
<Jose Elais Maxwell - Last Filed: 01/20/18 13:28> Subjective - Date & Time of Evaluation Date of Evaluation: 01/20/18 Time of Evaluation: 13:28 - Subjective Subjective: Neurology Progress Note for Dr. Taylor Patient seen and examined at bedside. No acute overnight events. Patient still unable to move left arm and leg and appears to have left sided neglect. Objective - Vital Signs/Intake and Output Vital Signs (last 24 hours): Temp Pulse Resp BP Pulse Ox 97.6 F 88 14 169/75 H 96 01/20/18 06:00 01/20/18 09:08 01/20/18 08:30 01/20/18 09:08 01/20/18 08:30 Intake and Output: 01/20/18 01/20/18 06:59 18:59 Intake Total 540 Output Total 800 Balance -260 - Medications Medications: Current Medications Amlodipine Besylate (Norvasc) 10 mg PO DAILY [facility] Last Admin: 01/20/18 09:08 Dose: 10 mg Ascorbic Acid (Vitamin C 500 Mg Tab) 500 mg PO DAILY [facility] Last Admin: 01/20/18 09:09 Dose: 500 mg Aspirin (Ecotrin) 81 mg PO DAILY [facility] Last Admin: 01/20/18 09:09 Dose: 81 mg Clopidogrel Bisulfate (Plavix) 75 mg PO DAILY [facility] Last Admin: 01/20/18 09:09 Dose: 75 mg Ezetimibe (Zetia) 10 mg PO DAILY [facility] Last Admin: 01/20/18 09:09 Dose: 10 mg Gemfibrozil (Lopid) 600 mg PO DAILY [facility] Last Admin: 01/20/18 09:09 Dose: 600 mg Hydralazine HCl (Apresoline) 10 mg IVP Q6 PRN PRN Reason: FOR SBP>160 Last Admin: 01/20/18 07:25 Dose: 10 mg Sodium Chloride (Sodium Chloride 0.9%) 1,000 mls @ 100 mls/hr IV .Q10H [facility] Losartan Potassium (Cozaar) 100 mg PO DAILY [facility] Last Admin: 01/20/18 09:09 Dose: 100 mg Metoprolol Tartrate (Lopressor) 100 mg PO BID [facility] Last Admin: 01/20/18 09:08 Dose: 100 mg Pantoprazole Sodium (Protonix Ec Tab) 40 mg PO DAILY [facility] Last Admin: 01/20/18 09:09 Dose: 40 mg Sertraline HCl (Zoloft) 50 mg PO DAILY [facility] Last Admin: 01/20/18 09:09 Dose: 50 mg - Labs Labs: 01/20/18 06:30 01/20/18 06:30 PT 12.2 SECONDS (9.4-12.5) 01/16/18 18:50 INR 1.07 01/16/18 18:50 APTT 27.4 Seconds (25.1-36.5) 01/16/18 18:50 - Constitutional Appears: No Acute Distress - Head Exam Head Exam: NORMAL INSPECTION - Eye Exam Eye Exam: Normal appearance Pupil Exam: NORMAL ACCOMODATION - ENT Exam ENT Exam: Normal Exam - Respiratory Exam Respiratory Exam: Clear to Ausculation Bilateral, NORMAL BREATHING PATTERN - Cardiovascular Exam Cardiovascular Exam: REGULAR RHYTHM - GI/Abdominal Exam GI & Abdominal Exam: Soft, Normal Bowel Sounds - Extremities Exam Extremities Exam: Normal Inspection - Back Exam Back Exam: NORMAL INSPECTION - Neurological Exam Neurological Exam: Alert, Awake, Oriented x3 Neuro motor strength exam: Left Upper Extremity: 2/1, Right Upper Extremity: 5, Left Lower Extremity: 2/1, Right Lower Extremity: 5 Additional comments: left sided neglect left facial droop - Psychiatric Exam Psychiatric exam: Normal Affect - Skin Skin Exam: Normal Color Assessment and Plan - Assessment and Plan (Free Text) Assessment: 87 yo F with PMH of HTN, HLD, chornic LE pain, anxiety presents to [facility] for AMS, dysarthria, and facial droop was found to have acute/subacute infarction at the right basal ganglia with a very small chronic infarct in the right parietal lobe on brain MRI. Patient found to have progression of her infarct on MRI, possibly due to relative hypotension. Plan: - MRI showed interval increase in size of right basal ganglia infarct - CTA head/neck negative - Permissive HTN for 24 hrs; treat only if > 220/110 - NS100 started - Cont ASA and Plavix - Neurochecks - PT/OT Patient seen and discussed in detail with Dr. Taylor. Berto Maxwell, DO PGY2 <David Taylor - Last Filed: 01/22/18 13:34> Objective - Vital Signs/Intake and Output Vital Signs (last 24 hours): Temp Pulse Resp BP Pulse Ox 98.2 F 86 20 122/63 100 01/21/18 14:00 12/15/18 14:00 01/21/18 14:00 01/21/18 14:00 01/21/18 14:00 - Labs Labs: 01/21/18 06:30 01/21/18 06:30 PT 12.2 SECONDS (9.4-12.5) 01/16/18 18:50 INR 1.07 01/16/18 18:50 APTT 27.4 Seconds (25.1-36.5) 01/16/18 18:50 Attending/Attestation - Attestation I have personally seen and examined this patient.: Yes I have fully participated in the care of the patient.: Yes I have reviewed all pertinent clinical information, including history, physical exam and plan: Yes Notes (Text): 01/22/18 13:33 I agree with the assessment and plan: - CTA head/neck negative - Permissive HTN for 24 hrs; treat only if > 220/110 - NS100 started - Cont ASA and Plavix - Neurochecks
[2018-01-21 06:47] LABS: GRAN # 9.25 (1.4-6.5); GRAN % 92.5 % (50.0-68.0); HEMOGLOBIN 10.1 g/dL (12.0-16.0); LYMPH # 0.3 (1.2-3.4); LYMPH % 3.1 % (22.0-35.0); MEAN CELL VOLUME 90.2 fl (80.0-105.0); MEAN CORPUSCULAR HGB CONC 32.2 g/dl (31.0-37.0); MEAN PLATELET VOLUME 9.5 fl (7.0-11.0); MONO # 0.4 (0.1-0.6); MONO % 4.4 % (1.0-6.0); PLATELET COUNT 186 10^3/uL (120.0-450.0); RBC 3.48 10^6/uL (3.5-6.1); RED CELL DISTRIBUTION WIDTH 14.7 % (11.5-14.5)
[2018-01-21 07:38] LABS: ALB/GLOB RATIO 1.2 (1.1-1.8); ALBUMIN 3.8 g/dL (3.0-4.8); CALCIUM 9.6 mg/dL (8.4-10.5)
[2018-01-21 07:58] VITALS: RESP 20
[2018-01-21 08:15] LABS: LYMPHOCYTE 4 % (22.0-35.0); MONOCYTE 3 % (1.0-6.0); NEUTROPHIL 93 % (50.0-70.0)
[2018-01-21 08:16] LABS: PLATELET ESTIMATE NORMAL (NORMAL)
[2018-01-21] MEDS: Pantoprazole 40 mg EC Tab PO SCH (10:44)
--- NOTE | 2018-01-21 11:17 | CP.PCM.DIS ---
Provider - Provider Date of Admission: 01/16/18 19:45 Attending physician: Elayne Phillips MD Primary care physician: Boaz Tobar MD Consults: 01/16/18 18:44 Stroke Team Consult Stat Comment: Consulting Provider: Neurohospitalist Consulting Physician: NEUROHOSP Neurohospitalist for Consult: David Taylor Neurohospitalist for Consult: Larry Guerra Reason for Consult: code [email or web address] 01/16/18 20:36 Physician Consult Routine Comment: Consulting Provider: Larry Guerra Consulting Physician: Larry Guerra Reason for Consult: ischemic stroke 01/17/18 09:38 Consult [Physician Consult] Routine Comment: Consulting Provider: Dori Olson Consulting Physician: Dori Olson Reason for Consult: goals of care Time Spent in preparation of Discharge (in minutes): 40 Hospital Course - Lab Results Lab Results: Micro Results 01/16/18 23:10 Urine,Marcos Urine Culture - Final Gram Positive Reagan Most Recent Lab Values WBC 10.0 10^3/uL (4.5-11.0) 01/21/18 06:30 RBC 3.48 10^6/uL (3.5-6.1) L 01/21/18 06:30 Hgb 10.1 g/dL (12.0-16.0) L 01/21/18 06:30 Hct 31.4 % (36.0-48.0) L 01/21/18 06:30 MCV 90.2 fl (80.0-105.0) 01/21/18 06:30 MCH 29.0 pg (25.0-35.0) 01/21/18 06:30 MCHC 32.2 g/dl (31.0-37.0) 01/21/18 06:30 RDW 14.7 % (11.5-14.5) H 01/21/18 06:30 Plt Count 186 10^3/uL (120.0-450.0) 01/21/18 06:30 MPV 9.5 fl (7.0-11.0) 01/21/18 06:30 Gran % 92.5 % (50.0-68.0) H 01/21/18 06:30 Lymph % (Auto) 3.1 % (22.0-35.0) L 01/21/18 06:30 [place] % (Auto) 4.4 % (1.0-6.0) 01/21/18 06:30 Eos % (Auto) 0.0 % (1.5-5.0) L 01/21/18 06:30 Baso % (Auto) 0.0 % (0.0-3.0) 01/21/18 06:30 Gran # 9.25 (1.4-6.5) H 01/21/18 06:30 Lymph # (Auto) 0.3 (1.2-3.4) L 01/21/18 06:30 [place] # (Auto) 0.4 (0.1-0.6) 01/21/18 06:30 Eos # (Auto) 0.0 (0.0-0.7) 01/21/18 06:30 Baso # (Auto) 0.00 K/mm3 (0.0-2.0) 01/21/18 06:30 Neutrophils % (Manual) 93 % (50.0-70.0) H 01/21/18 06:30 Lymphocytes % (Manual) 4 % (22.0-35.0) L 01/21/18 06:30 Monocytes % (Manual) 3 % (1.0-6.0) 01/21/18 06:30 Platelet Evaluation Normal (NORMAL) 01/21/18 06:30 PT 12.2 SECONDS (9.4-12.5) 01/16/18 18:50 INR 1.07 01/16/18 18:50 APTT 27.4 Seconds (25.1-36.5) 01/16/18 18:50 Sodium 138 mmol/L (132-148) 01/21/18 06:30 Potassium 3.9 mmol/L (3.6-5.0) 01/21/18 06:30 Chloride 107 mmol/L (98-107) 01/21/18 06:30 Carbon Dioxide 20 mmol/L (21-33) L 01/21/18 06:30 Anion Gap 15 (10-20) 01/21/18 06:30 BUN 37 mg/dL (7-21) H 01/21/18 06:30 Creatinine 1.3 mg/dl (0.7-1.2) H 01/21/18 06:30 Est GFR ( Amer) 47 01/21/18 06:30 Est GFR (Non-Af Amer) 39 01/21/18 06:30 POC Glucose (mg/dL) 121 mg/dL (65-110) H 01/17/18 16:38 Random Glucose 175 mg/dL (70-110) H 01/21/18 06:30 Hemoglobin A1c 6.0 % (4.2-6.5) 01/16/18 18:50 Calcium 9.6 mg/dL (8.4-10.5) 01/21/18 06:30 Phosphorus 2.9 mg/dL (2.5-4.5) 01/18/18 05:20 Magnesium 2.0 mg/dL (1.7-2.2) 01/18/18 05:20 Iron 80 ug/dL (45-180) 01/16/18 23:11 TIBC 365 ug/dL (265-497) 01/16/18 23:11 % Saturation 22 % (20-55) 01/16/18 23:11 Ferritin 48.6 ng/mL 01/16/18 23:11 Total Bilirubin 0.5 mg/dL (0.2-1.3) 01/21/18 06:30 AST 37 U/L (14-36) H 01/21/18 06:30 ALT 31 U/L (7-56) 01/21/18 06:30 Alkaline Phosphatase 145 U/L (38-126) H 01/21/18 06:30 Troponin I 0.05 ng/mL 01/17/18 05:40 Total Protein 6.9 g/dL (5.8-8.3) 01/21/18 06:30 Albumin 3.8 g/dL (3.0-4.8) 01/21/18 06:30 Globulin 3.1 gm/dL 01/21/18 06:30 Albumin/Globulin Ratio 1.2 (1.1-1.8) 01/21/18 06:30 Triglycerides 268 mg/dL (35-160) H 01/16/18 18:50 Cholesterol 194 mg/dL (130-200) 01/16/18 18:50 LDL Cholesterol Direct 54 mg/dL (0-129) 01/16/18 18:50 HDL Cholesterol 39 mg/dL (29-60) 01/16/18 18:50 Vitamin B12 903 pg/mL (239-931) 01/16/18 19:00 Folate 14.8 ng/mL 01/16/18 23:11 Thyroxine (T4) 7.6 ug/dL (5.5-11.0) 01/18/18 05:20 Total T3 1.15 ng/mL (0.97-1.69) 01/18/18 05:20 TSH 3rd Generation 0.55 mIU/mL (0.46-4.68) 01/18/18 05:20 Urine Color Yellow (YELLOW) 01/16/18 22:50 Urine Appearance Clear (CLEAR) 01/16/18 22:50 Urine pH 6.0 (4.7-8.0) 01/16/18 22:50 Ur Specific Wol[place] 1.015 (1.005-1.035) 01/16/18 22:50 Urine Protein Negative mg/dL (<30 mg/dL) 01/16/18 22:50 Urine Glucose (UA) Negative mg/dL (NEGATIVE) 01/16/18 22:50 Urine Ketones Negative mg/dL (NEGATIVE) 01/16/18 22:50 Urine Blood Trace-intact (NEGATIVE) H 01/16/18 22:50 Urine Nitrate Negative (NEGATIVE) 01/16/18 22:50 Urine Bilirubin Negative (NEGATIVE) 01/16/18 22:50 Urine Urobilinogen 0.2 E.U./dL (<1 E.U./dL) 01/16/18 22:50 Ur Leukocyte Esterase Negative Wili/uL (NEGATIVE) 01/16/18 22:50 Urine RBC 0 - 2 /hpf (0-2) 01/16/18 22:50 Urine WBC 0 - 2 /hpf (0-6) 01/16/18 22:50 Ur Epithelial Cells 0 - 2 /hpf (0-5) 01/16/18 22:50 Urine Bacteria Small (NEG) 01/16/18 22:50 Blood Type O POSITIVE 01/16/18 19:00 Blood Type Confirm O POSITIVE 01/16/18 18:45 Antibody Screen Negative 01/16/18 19:00 BBK History Checked No verified bt 01/16/18 19:00 - Hospital Course Hospital Course: Titi Ortiz, PGY-1 Discharge Summary for Hospitalist Service 87 year old female with past medical history of hypertension, hyperlipidemia, anemia, CAD with RCA stent in 2015, chronic lower extremity pain, and anxiety presented with altered mental status, facial droop, and slurred speech. Patient was last seen normal at 18:00 on 11/16 and brought to [facility] by EMS. Patient initially presented with an NIHSS stroke scale of 6. Head CT on 01/16 showed no acute intracranial abnormalities. No significant findings to account for clinical presentation. Head and neck CTA showed no significant stenosis of the brain and neck. Trace atherosclerotic changes were seen at the bilateral carotic bulb regions as well as cavernous internal carotid arteries bilaterally. MRI Head results on 01/16 showed acute infarction at the right basal ganglia is identified. 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 No mass effect; age related degenerative findings. Echocardiogram with bubble study results showed EF: 50%, no intraseptal defect. Troponinsx3 were negative. EKG showed NSR. Patient was given loading dose of aspirin and patient was started on aspirin and plavix. TPa was not given on admission. Patient was initially very weak and but improved significantly during her first day of her hospital admission. On 01/19, patient was found to have more left sided upper extremity weakness. After conferring with neurology resident, repeat head CT and head and neck CTA were ordered. Repeat Head CT showed severe chronic periventricular white matter ischemic disease. Question evolving infarct in the right basal ganglia/thalamus. No acute hemorrhage. Repeat Head and Neck CTA was unremarkable. Brain MRI was ordered which showed interval increase in the size of diffusion restriction at the right basal ganglia compared to the previous exam with interval appearance of mild mass effect on the right lateral ventricle. No evidence of acute hemorrhage. During her hospital course, patient has gotten aggressive physical therapy and occupation therapy, had aspiration precautions, fall precautions and was deemed to be ok to have soft regular consistency diet as per speech and swallow evaluation. Patient had incidental left upper lobe lung mass on head and neck CTA, and patient was advised to follow up outpatient for further work up. Incidental thyroid nodule was seen on CTA. TSH, T3, and T4 were unremarkable. Patient was advised to have outpatient thyroid ultrasound. On day of discharge, patient was swallowing her medications this morning, ate her breakfast and tolerated her dinner last night without issue. Patient was deemed stable and ready for discharge. Patient will be discharged to [facility] for acute rehabilitation. Patient should continue to get aggressive physical and occupational therapy. Patient should follow up with tester armature or fields for incidental lung mass and fire control technician for incidental thyroid mass. Patient was urged to take all medications as prescribed. Patient was told to return to the emergency department if she had any recurring symptoms. This is a brief summary of the hospital course. Please refer to EMR hospital documentation for more complete details. Patient seen, case reviewed and plan approved by Dr. Colvin. Discharge Exam - Additional Findings Additional findings: - Head Exam Head Exam: NORMAL INSPECTION, NORMOCEPHALIC - Eye Exam Eye Exam: EOMI Pupil Exam: PERRL - Respiratory Exam Respiratory Exam: Clear to PA & Lateral, NORMAL BREATHING PATTERN - Cardiovascular Exam Cardiovascular Exam: REGULAR RHYTHM - GI/Abdominal Exam GI & Abdominal Exam: Normal Bowel Sounds, Unremarkable - Extremities Exam Extremities exam: normal inspection - Neurological Exam Neurological exam: Alert, CN II-XII Intact, AAOx2 Additional comments: facial droop, +1/5 strength in left upper extremity, +3/5 in left lower extremity - Skin Skin Exam: Dry, Intact Discharge Plan - Discharge Medications Prescriptions: amLODIPine [Norvasc] 10 mg PO DAILY #30 tab Clopidogrel [Plavix] 75 mg PO DAILY #30 tab Ezetimibe [Zetia] 10 mg PO DAILY #30 tab Gemfibrozil [Lopid] 600 mg PO DAILY #30 tab Losartan [Cozaar] 100 mg PO DAILY #30 tab Metoprolol Tartrate [Lopressor] 100 mg PO BID #60 tab - Follow Up Plan Condition: STABLE Disposition: REHAB FACILITY/REHAB UNIT Instructions: Stroke, High Blood Pressure in Adults, Dangers of Secondhand Smoke, Stroke Rehab Information, Flu Vaccine Additional Instructions: You are being discharged to the acute rehabilitation facility. Please follow up with PCP within one week. Please take all daily medications as prescribed. Please return to the emergency department if you have any new concerning or worsening symptoms. Referrals: Boaz Tobar MD [Primary Care Provider] -
[2018-01-21 17:03] VITALS: BP 122/63; PULSE 86; TEMP 98.2; O2SAT 100
--- NOTE | 2018-01-23 08:11 | PN ---
DATE: 01/20/2018 ADDITION PROGRESS NOTE LOCATION: The patient is in room 568, bed 1. Details of this note had been already written by Lisa Calvo. This is an addition progress note. The patient was admitted with CVA with altered mental status, slurred speech and facial droop. The patient is known to have hypertension, coronary artery disease, has a history of stent insertion in RCA, history of hyperlipidemia. The patient does not move left arm, left leg. On CAT scan of the head, there was questionable progression of the infarct, so MRI was done today which showed interval increase in the size of diffusion restriction at the right basal ganglia compared to the previous exam with interval appearance of mild mass effect on the right lateral ventricle. No evidence of hemorrhage. The patient is being followed by Neurology. The patient is on Norvasc 10 mg daily, aspirin 81 mg daily, Plavix 75 mg daily, Lopid 600 mg daily, hydralazine IV p.r.n., Cozaar 100 mg daily, Lopressor 100 mg b.i.d. We will continue current therapy. Physical therapy is following the patient. We will continue to follow closely. Boaz Tobar MD
== END 2018-01-21 18:58 | DRG 66 ==
LOC: ED 18:42 → ERH 19:45 → ICU 22:35 → 5RNO 01-18 22:35
PROVIDERS: ADMIT Internal Medicine; ATTEND Internal Medicine
DX: I63.9 Cerebral infarction, unspecified (principal); R41.82 Altered mental status, unspecified; I10 Essential (primary) hypertension; R47.81 Slurred speech; R29.810 Facial weakness; R91.1 Solitary pulmonary nodule; E04.2 Nontoxic multinodular goiter; I25.10 Atherosclerotic heart disease of native coronary artery without angina pectoris; D64.9 Anemia, unspecified; F41.9 Anxiety disorder, unspecified; R29.714 NIHSS score 14; E78.5 Hyperlipidemia, unspecified; G93.89 Other specified disorders of brain; K21.9 Gastro-esophageal reflux disease without esophagitis; K59.00 Constipation, unspecified; Z66 Do not resuscitate; Z79.02 Long term (current) use of antithrombotics/antiplatelets; Z79.82 Long term (current) use of aspirin; Z79.899 Other long term (current) drug therapy; Z86.73 Personal history of transient ischemic attack (TIA), and cerebral infarction without residual deficits; Z90.49 Acquired absence of other specified parts of digestive tract; Z90.710 Acquired absence of both cervix and uterus; Z95.5 Presence of coronary angioplasty implant and graft; Z96.653 Presence of artificial knee joint, bilateral; M19.90 Unspecified osteoarthritis, unspecified site; F32.89 Other specified depressive episodes; Z88.5 Allergy status to narcotic agent; Z87.892 Personal history of anaphylaxis